=== PATIENT | female | born 1950 | race Native Hawaiian/Other Pacific Islander ===

== ENCOUNTER 2019-02-10 17:54 | Emergency (ER) | payer MEDICAID, SELFPAY ==
[2019-02-10 17:57] VITALS: BP 131/78; PULSE 78; RESP 16; TEMP 36.6; O2SAT 97
[2019-02-10 19:31] VITALS: BP 146/74; PULSE 80; RESP 17; O2SAT 100
[2019-02-10] MEDS: TRIMETH/SULFA 160/800 (DS) TABLET 1 TAB PO (19:57)
[2019-02-10 20:11] VITALS: BP 149/72; PULSE 77; RESP 16; O2SAT 99
--- NOTE | 2019-02-10 20:55 | ED.SKABFB ---
HPI - Skin/Abscess/Foreign Bdy <EUGENE CabanP - Last Filed: 02/10/19 21:20> General Chief complaint: Skin/Abscess/Foreign Body Stated complaint: LUMP BACK ON BACK OF NECK MORE ON RIGHT SIDE Time Seen by Provider: 02/10/19 18:56 Source: patient and family Mode of arrival: ambulatory Limitations: language barrier (Luxembourger) History of Present Illness HPI narrative: This is a 68-year-old female, nonsmoker, has history of diabetes who presents with her granddaughter with posterior neck swelling and pain. They report that lesion started as a very small pimple about a week ago which has been increasing in size and discomfort over 1 week. Patient denies fever, chills, nausea or vomiting or drainage from the site. Patient denies recent URI symptoms, sore throat, sinus pain or drainage. Patient reports some discomfort in left ear which is away from her post anterior neck lesion. Patient reports that her diabetes has been controlled with the 2 medications she is taking orally, Metformin and Invokana but does not check her blood sugar at home. Related Data Previous Rx's Medication Instructions Recorded sulfamethoxazole-trimethoprim 1 tab PO BID 7 Days #14 tab 02/10/19 [Bactrim DS] Allergies Allergy/AdvReac Type Severity Reaction Status Date / Time No Known Drug Allergies Allergy Verified 02/10/19 18:00 Review of Systems <EUGENE CabanP - Last Filed: 02/10/19 21:20> Review of Systems Narrative: General: Denies fever, chills, fatigue, malaise, sweats. HEENT: Denies sinus pain, ear pain, sore throat, difficulty swallowing, dizziness. Respiratory: Denies dyspnea, cough, wheezing, hemoptysis, sputum. Cardiovascular: Denies chest pain, palpitations, orthopnea, edema. Gastrointestinal: Denies nausea, vomiting, abdominal pain, diarrhea, constipation, melena. : Denies dysuria, frequency, incontinence, hematuria, urinary retention. Musculoskeletal: Denies weakness, joint pain or bony pain. Skin: See HPI Neurologic: Denies weakness, headache, numbness, change in speech, confusion, seizures, incoordination. Psychiatric: No concerning psychosocial issues. 12-point review of systems is negative except for those stated above. PFSH <EUGENE CabanP - Last Filed: 02/10/19 21:20> Social History Smoking Status: Never smoker Social History Smoking Status: Never smoker Exam <GLORY Caban - Last Filed: 02/10/19 21:20> Narrative Exam Narrative: General appearance: well developed, well nourished, in no acute distress. Head: normocephalic, atraumatic, no scalp lesions, non-tender. Eye: pupil equal, round. EOMI. Ear: some ear cerumen. TM intact without redness, rectraction. Nose: nares patent and no drainage noted. No facial sinus tenderness to palpate, Oral: mucosa moist. Tonsillar area without hypertrophy, erythema, exudate. Neck/Thyroid: neck supple, full range of motion, no visible masses. Skin: Raised, indurated lesion on R side posterior neck in about 5cm in a diameter. No redness, warmth to touch, tender to deep palpation. No drainaged noted. Warm and dry. Heart: no clubbing, no cyanosis, no edema. S1 and S2 with regular rhythm and rate. Lungs: Breathing even and unlabored. Lungs clear to auscultate bilaterally. No stridor. No accessory muscles used. Chest: normal shape and expansion. Abdomen: non-obese, non-distended. Neurologic: alert and oriented. Cognitive exam, [employer] and PNS grossly intact on informal exam. Psych: good eye contact, normal affect. Initial Vital Signs Initial Vital Signs: Vital Signs Temperature 97.9 F 02/10/19 17:57 Pulse Rate 78 02/10/19 17:57 Respiratory Rate 16 02/10/19 17:57 Blood Pressure 131/78 02/10/19 17:57 Pulse Oximetry 97 02/10/19 17:57 <Roberta Ramirez DO - Last Filed: 02/11/19 05:37> Initial Vital Signs Initial Vital Signs: Vital Signs Temperature 97.9 F 02/10/19 17:57 Pulse Rate 78 02/10/19 17:57 Respiratory Rate 16 02/10/19 17:57 Blood Pressure 131/78 02/10/19 17:57 Pulse Oximetry 97 02/10/19 17:57 Course <GLORY Caban - Last Filed: 02/10/19 21:20> Orders Ordered: Discontinued Medications Trimethoprim/Sulfamethoxazole (Bactrim Ds) 1 tab PO NOW ONE Stop: 02/10/19 19:46 Last Admin: 02/10/19 19:57 Dose: 1 tab Documented by: KARTHIK Vital Signs Vital signs: Vital Signs - 8 hr 02/10/19 17:57 02/10/19 19:31 02/10/19 20:11 Temperature 97.9 F Pulse Rate 78 80 77 Respiratory Rate 16 17 16 Blood Pressure 131/78 149/72 H Blood Pressure [Right Arm] 146/74 H Pulse Oximetry 97 100 99 <Roberta Ramirez DO - Last Filed: 02/11/19 05:37> Orders Ordered: Discontinued Medications Trimethoprim/Sulfamethoxazole (Bactrim Ds) 1 tab PO NOW ONE Stop: 02/10/19 19:46 Last Admin: 02/10/19 19:57 Dose: 1 tab Documented by: KARTHIK Vital Signs Vital signs: Vital Signs - 8 hr 02/10/19 17:57 02/10/19 19:31 02/10/19 20:11 Temperature 97.9 F Pulse Rate 78 80 77 Respiratory Rate 16 17 16 Blood Pressure 131/78 149/72 H Blood Pressure [Right Arm] 146/74 H Pulse Oximetry 97 100 99 [facility] - Skin/Abscess/Foreign Bdy <GLORY Caban - Last Filed: 02/10/19 21:20> Differential Diagnosis Differential diagnosis: Likely abscess of skin or subcutaneous tissue, cellulitis and other (Lymphadenopathy) Medical Records Attestation: I reviewed the patient's medical records. [facility] Narrative Medical decision making narrative: This patient presents to ED with 5 cm in diameter raised, indurated lesion in right-sided posterior neck with patient appears non toxic appearing. Patient denies constitutional symptoms. Since the lesion does not have fluctuation at this time, deferring I and D at this time. We discussed return precautions with patient and daughter and advised to follow up with her primary care physician in 2 days for recheck after starting antibiotic medication. Patient was discharged to home with a 7 day course of b.i.d. Bactrim and medicated with 1st dose medication. Patient advised to use warm pack at least 4 times a day until the swelling improves. The patient and granddaughter agrees with treatment plan at this time. The granddaughter was concerned if her grandmother has a tumor. The boat were informed that the lesions started as a pimple and had grew over a week period and will treat at this time with antibiotic medication whether this will improve. However it is important to follow up with her primary care physician for a recheck. Discharge Plan Departure Patient Disposition: Home Clinical Impression: Cellulitis Qualifiers: Site of cellulitis: neck Qualified Code(s): L03.221 - Cellulitis of neck Discharge Date/Time: 02/10/19 20:12 Instructions: DI for Cellulitis -- Adult, DI for Skin Abscess Activity Restrictions/Additional Instructions: You have been diagnosed with [cellulitis/skin abscess, possible lymph node infection]. What to do: *Take your medications as directed. Please start antibiotic medications tonight. Please use warm pack on affected site for 4 times a day for 30 minutes. *Follow up with your primary care provider in 2-3 days, call for an appointment. Let them know you were seen in the ED and that we asked you to be seen in follow up. *Return to ED if you have any new, worsening, or concerning symptoms, such as [increase in swelling, fever, redness, warmth, chest pain, breathing difficulty, or any acute concerns]. Prescriptions: New sulfamethoxazole-trimethoprim [Bactrim DS] 800-160 mg tablet 1 tab PO BID 7 Days Qty: 14 RF: 0 Referrals: Anne Mary PA-C [Primary Care Provider] -
== END 2019-02-10 20:12 | disposition home or self-care (01) ==
PROVIDERS: Emergency Provider Nurse Practitioner Family; Family Provider Physician Assistant Medical; PCP Physician Assistant Medical
DX: L03.221 Cellulitis of neck (principal)
CPT/HCPCS: 99282; 99283

== ENCOUNTER 2019-11-19 13:14 | Emergency (ER) | payer MEDICAID, SELFPAY ==
[2019-11-19 13:21] VITALS: BP 153/78; PULSE 86; RESP 15; TEMP 36.8; O2SAT 96; BMI 29.0
--- NOTE | 2019-11-19 13:31 | ED.GENADULT ---
HPI - General Adult General Chief complaint: Weakness Stated complaint: dizziness, breathing problem, pain, not eating Time Seen by Provider: 11/19/19 13:20 Source: patient and family (Daughter) Mode of arrival: Ambulatory Limitations: language barrier History of Present Illness HPI narrative: 69-year-old female. Non Tanzanian-speaking but can understand Tanzanian per the patient's daughter who is at bedside who is providing translation. Offered translation services but the patient's daughter stated that she would be happy to translate for us. Is reported that the patient has had fatigue, nausea without vomiting, generalized pain, fatigue for the past week. No urinary symptoms. Subjective fevers, headache, no neck pain, has not tried anything for the symptoms prior to arrival. Related Data Home Medications Medication Instructions Recorded Confirmed blood pressure meds, unknown PO 02/26/19 02/26/19 diabetes, unkown med PO 02/26/19 Previous Rx's Medication Instructions Recorded nitrofurantoin monohyd/m-cryst 100 mg PO Q12H 5 Days #10 cap 11/19/19 [Macrobid] Allergies Allergy/AdvReac Type Severity Reaction Status Date / Time No Known Drug Allergies Allergy Verified 11/19/19 13:41 Review of Systems Constitutional Constitutional: Reports fatigue, Reports fever(s), Reports headache(s) and Reports malaise ENT Ears, Nose, Mouth, and Throat: Reports headache(s) Cardiovascular Cardiovascular: Denies chest pain and Denies dyspnea Respiratory Respiratory: Denies cough and Denies dyspnea Gastrointestinal Gastrointestinal: Denies abdominal pain, Reports nausea and Denies vomiting Genitourinary Genitourinary: Denies dysuria Genitourinary: Denies dysuria Integumentary/Breasts Skin/Breast: Denies lesions and Denies rash Neurologic Neurologic: Denies behavioral changes and Reports headache(s) Psychiatric Psychiatric: Denies behavioral changes Endocrine Endocrine: Reports fatigue Hematologic/Lymphatic Hematologic/Lymphatic: Denies easy bleeding and Denies easy bruising Allergic/Immunologic Allergic/Immunologic: Denies urticaria Patient History Medical History Diabetes (Inactive) Social History Smoking Status: Never smoker Smoking Status: Never smoker Exam Initial Vital Signs Initial Vital Signs: Vital Signs Temperature 98.3 F 11/19/19 13:21 Pulse Rate 86 11/19/19 13:21 Respiratory Rate 15 11/19/19 13:21 Blood Pressure 153/78 H 11/19/19 13:21 Pulse Oximetry 96 11/19/19 13:21 Const General: cooperative and comfortable Limitations: mental status not altered HENMT Head: normal to inspection and normocephalic Resp Effort & Inspection: normal respiratory effort Auscultation: clear to auscultation bilaterally Cardio Rate: regular rate Rhythm: regular rhythm GI Inspection: non-distended Palpation: soft Back/Spine/Pelvis Back: No CVA tenderness Skin Lesions: no lesions Rashes: no rashes Neuro General: patient alert and patient awake Extrem General: capillary refill normal Psych Appearance: grossly normal and well kempt Course Orders Ordered: ED Orders 11/19/19 13:20 Complete Blood Count AUTO DIFF Stat Comprehensive Metabolic Panel Stat Lactate (Lactic Acid) Stat Lipase Stat Procalcitonin Stat Troponin I Stat 11/19/19 13:41 EKG-12 Lead Stat 11/19/19 13:55 Blood Culture Stat 11/19/19 16:07 Urine Culture Stat Urine Microscopic Stat Discontinued Medications Sodium Chloride (Normal Saline 0.9%) 1,000 mls @ 1,000 mls/hr IV BOLUS ONE Stop: 11/19/19 14:48 Last Infusion: 11/19/19 15:10 Dose: 0 mls/hr Documented by: Admin: 11/19/19 14:06 Dose: 1,000 mls/hr Documented by: CHITO Nitrofurantoin Macrocrystals (Macrobid 100 Mg Capsule) 100 mg PO NOW ONE Stop: 11/19/19 16:50 Last Admin: 11/19/19 16:52 Dose: 100 mg Documented by: CHITO Ondansetron HCl (Zofran) 4 mg IV NOW ONE Stop: 11/19/19 13:50 Last Admin: 11/19/19 14:06 Dose: 4 mg Documented by: CHITO Vital Signs Vital signs: Vital Signs - 8 hr 11/19/19 13:21 11/19/19 14:30 11/19/19 17:11 Temperature 98.3 F Pulse Rate 86 74 94 H Respiratory Rate 15 22 Blood Pressure 153/78 H 186/86 H Blood Pressure [Left Arm] 153/78 H Pulse Oximetry 96 99 99 Medical Decision Making Lab Data Lab results reviewed: Yes I reviewed the patient's lab results. Result diagrams: 11/19/19 13:20 11/19/19 13:20 Labs: Lab Results 11/19/19 11/19/19 11/19/19 Range/Units 13:20 13:20 13:20 WBC 7.4 (4.5-11.0) X10^3/uL RBC 4.46 (4.0-5.2) X10^6/uL Hgb 13.3 (12.0-16.0) g/dL Hct 38.7 (36-46) % MCV 86.9 (80-100) fL MCH 29.9 (26-34) PG MCHC 34.4 (30-36) % RDW 12.7 (11.6-14.8) % Plt Count 221 (150-400) X10^3/uL Neut % (Auto) 71.3 (50-75) % Lymph % (Auto) 19.6 L (25-40) % [place] % (Auto) 8.3 (3-14) % Eos % (Auto) 0.1 L (2-4) % Baso % (Auto) 0.7 (0-2) % Neut # (Auto) 5200 (6284-9713) /uL Lymph # (Auto) 1400 (5501-0310) /uL [place] # (Auto) 600 (0-900) /uL Eos # (Auto) 0 (0-450) /uL Baso # (Auto) 100 (0-100) /uL Sodium 135 L (137-145) mmol/L Potassium 4.7 (3.4-5.1) mmol/L Chloride 103 (98-107) mmol/L Carbon Dioxide 21 L (22-32) mmol/L BUN 27 H (7-17) mg/dL Creatinine 1.23 H (0.52-1.04) mg/dL Estimated GFR 43.3 L (>60) mL/min BUN/Creatinine Ratio 22.0 (6-22) Glucose 167 H (80-110) mg/dL Lactate (0.7-2.1) mmol/L Calcium 9.1 (8.4-10.2) mg/dL Total Bilirubin 0.6 (0.2-1.3) mg/dL AST 29 (14-36) IU/L ALT 14 (<35) IU/L Alkaline Phosphatase 104 (38-126) U/L Troponin I < 0.012 (0.01-0.034) ng/mL Total Protein 8.2 (6.3-8.2) g/dL Albumin 4.2 (3.5-5.0) g/dL Globulin 4.0 (1.7-4.1) g/dL Albumin/Globulin Ratio 1.1 (1.0-2.8) Lipase 385 H (23-300) U/L Procalcitonin 0.17 (<0.5) ng/mL Urine RBC (0-5/HPF) Urine WBC (0-5/HPF) Ur Squamous Epith Cells (0-5/HPF) Urine Bacteria (None) Ur Culture Indicated? 11/19/19 11/19/19 Range/Units 13:20 16:07 WBC (4.5-11.0) X10^3/uL RBC (4.0-5.2) X10^6/uL Hgb (12.0-16.0) g/dL Hct (36-46) % MCV (80-100) fL MCH (26-34) PG MCHC (30-36) % RDW (11.6-14.8) % Plt Count (150-400) X10^3/uL Neut % (Auto) (50-75) % Lymph % (Auto) (25-40) % [place] % (Auto) (3-14) % Eos % (Auto) (2-4) % Baso % (Auto) (0-2) % Neut # (Auto) (4805-9925) /uL Lymph # (Auto) (3133-2579) /uL [place] # (Auto) (0-900) /uL Eos # (Auto) (0-450) /uL Baso # (Auto) (0-100) /uL Sodium (137-145) mmol/L Potassium (3.4-5.1) mmol/L Chloride (98-107) mmol/L Carbon Dioxide (22-32) mmol/L BUN (7-17) mg/dL Creatinine (0.52-1.04) mg/dL Estimated GFR (>60) mL/min BUN/Creatinine Ratio (6-22) Glucose (80-110) mg/dL Lactate 1.0 (0.7-2.1) mmol/L Calcium (8.4-10.2) mg/dL Total Bilirubin (0.2-1.3) mg/dL AST (14-36) IU/L ALT (<35) IU/L Alkaline Phosphatase (38-126) U/L Troponin I (0.01-0.034) ng/mL Total Protein (6.3-8.2) g/dL Albumin (3.5-5.0) g/dL Globulin (1.7-4.1) g/dL Albumin/Globulin Ratio (1.0-2.8) Lipase (23-300) U/L Procalcitonin (<0.5) ng/mL Urine RBC 0-1/hpf (0-5/HPF) Urine WBC 5-10/hpf H (0-5/HPF) Ur Squamous Epith Cells 0-1 /hpf (0-5/HPF) Urine Bacteria Moderate (10-30) H (None) Ur Culture Indicated? Specimen cultured Urine Dip Bedside Urine Glucose 1000 mg/dl Bedside Urine Bilirubin - Negative Bedside Urine Ketone +/- 5 Urine Specific [place] 1.015 Bedside Urine Occult Blood +/- Bedside Urine pH 6.0 Bedside Urine Protein +/- 15 Bedside Urine Urobilinogen - Negative Bedside Urine Nitrite + Positive Bedside Urine Leukocytes - Negative Esterase Point of care testing: Urine Dip Bedside Urine Glucose 1000 mg/dl Bedside Urine Bilirubin - Negative Bedside Urine Ketone +/- 5 Urine Specific [place] 1.015 Bedside Urine Occult Blood +/- Bedside Urine pH 6.0 Bedside Urine Protein +/- 15 Bedside Urine Urobilinogen - Negative Bedside Urine Nitrite + Positive Bedside Urine Leukocytes - Negative Esterase ECG Data Attestation: I personally reviewed and interpreted this ECG as follows: Prior ECG tracings: not available for review Interpretation: Sinus rhythm Ventricular rate 82 Normal axis Normal QRS Normal QTC No ST T wave changes MDM Narrative Medical decision making narrative: Somewhat difficult to obtain an accurate HPI from the patient. She has relatively vague symptoms but it does appear that the past couple days she has had fatigue and subjective fevers and nausea. She does have a nitrite positive urine which could very well be causing much of the symptoms she is having today. Low suspicion for ACS. I feel we can hold on a CT scan of her abdomen. Low suspicion for pyelo. Low suspicion for C VA or TIA. Had a long discussion with the patient's daughter. Was given a dose of antibiotics here and will send home with a prescription for antibiotics. Patient was given return precautions and follow-up instructions. Patient's daughter in the patient expressed understanding and agreement. Discharge Plan Departure Patient Disposition: Home Clinical Impression: Acute UTI Discharge Date/Time: 11/19/19 17:12 Instructions: DI for Urinary Tract Infection (UTI) Activity Restrictions/Additional Instructions: You were given your 1st dose of antibiotics here in the emergency department. The 2nd dose will be tomorrow morning. Take them as directed. You were tested for COVID-19. We will contact you for any positive or negative results. This test takes anywhere from 2-5 days to resolved. Contact your primary provider for follow-up. Return to the emergency department for any new or worsening symptoms Prescriptions: New nitrofurantoin monohyd/m-cryst [Macrobid] 100 mg capsule 100 mg PO Q12H 5 Days Qty: 10 RF: 0 No Action diabetes, unkown med PO RF: 0 blood pressure meds, unknown PO RF: 0 Referrals: Anne Mary PA-C [Primary Care Provider] -
[2019-11-19 13:53] LABS: Add Manual Diff / Slide Review NO; Basophils Absolute Auto 100 /uL (0-100); Basophils Percent Auto 0.7 % (0-2); Eosinophils Absolute Auto 0 /uL (0-450); Eosinophils Percent Auto 0.1 % (2-4); Hematocrit 38.7 % (36-46); Hemoglobin 13.3 g/dL (12.0-16.0); Lymphocytes Absolute Auto 1400 /uL (1100-4500); Lymphocytes Percent Auto 19.6 % (25-40); Mean Corpuscular HGB Conc 34.4 % (30-36); Mean Corpuscular Hemoglobin 29.9 PG (26-34); Mean Corpuscular Volume 86.9 fL (80-100); Monocytes Absolute Auto 600 /uL (0-900); Monocytes Percent Auto 8.3 % (3-14); Neutrophils Absolute Auto 5200 /uL (1500-7000); Neutrophils Percent Auto 71.3 % (50-75); Platelet Count 221 X10^3/uL (150-400); Red Blood Cell Count 4.46 X10^6/uL (4.0-5.2); Red Cell Distribution Width 12.7 % (11.6-14.8); White Blood Cell Count 7.4 X10^3/uL (4.5-11.0)
[2019-11-19 14:02] LABS: Alanine Aminotransferase 14 IU/L (<35); Albumin 4.2 g/dL (3.5-5.0); Albumin Globulin Ratio 1.1 (1.0-2.8); Alkaline Phosphatase 104 U/L (38-126); Aspartate Aminotransferase 29 IU/L (14-36); Bilirubin Total 0.6 mg/dL (0.2-1.3); Blood Urea Nitrogen 27 mg/dL (7-17); Calcium 9.1 mg/dL (8.4-10.2); Carbon Dioxide 21 mmol/L (22-32); Chloride 103 mmol/L (98-107); Estimated Glomerular Filt Rate 43.3 mL/min (>60); Glucose 167 mg/dL (80-110); HEMOLYSIS < 15 (0-50); Lipase 385 U/L (23-300); Potassium 4.7 mmol/L (3.4-5.1); Sodium 135 mmol/L (137-145); Total Protein 8.2 g/dL (6.3-8.2)
[2019-11-19] MEDS: ONDANSETRON 4 MG/2 ML INJ IV (14:06)
[2019-11-19] MEDS: SODIUM CHLORIDE 0.9% 1,000 ML 1000 ML IV (14:06)
[2019-11-19 14:13] LABS: Troponin I < 0.012 ng/mL (0.01-0.034)
[2019-11-19 14:27] LABS: Procalcitonin 0.17 ng/mL (<0.5)
[2019-11-19 14:30] VITALS: BP 153/78; PULSE 74; RESP 22; O2SAT 99
--- NOTE | 2019-11-19 16:02 | PC.NURSE ---
pt ambulated to bathroom with slow but steady gait
[2019-11-19 16:41] LABS: Bacteria Urine Moderate (10-30); Culture Indicated Urine Specimen Cultured; RBC Urine 0-1/HPF (0-5/HPF); Squamous Epithelial Cell Urine 0-1 /HPF (0-5/HPF); WBC Urine 5-10/HPF (0-5/HPF)
[2019-11-19] MEDS: NITROFURANTOIN ER 100 MG CAPSULE PO (16:52)
[2019-11-19 17:11] VITALS: BP 186/86; PULSE 94; O2SAT 99
[2019-11-21 10:16] LABS: COVID19 Sendout Detected (Not Detected)
== END 2019-11-19 17:12 | disposition home or self-care (01) ==
PROVIDERS: Emergency Provider Emergency Medicine; Family Provider Physician Assistant Medical; PCP Physician Assistant Medical
DX: N39.0 Urinary tract infection, site not specified (principal); R51 Headache; R50.9 Fever, unspecified
CPT/HCPCS: 36415; 80053; 81003; 81015; 83605; 83690; 84145; 84484; 85025; 87040; 87077; 87086; 87186; 87635; 93005; 96361; 96374; 99284; J2405

== ENCOUNTER 2021-09-13 19:00 | Observation (INO) | payer OTHER, MEDICAID, SELFPAY ==
[2021-09-13] VITALS (16 sets, daily range): BP systolic 126–160; BP diastolic 67–98; PULSE 72–100; RESP 20–28; TEMP 36.4; O2SAT 74–100
--- NOTE | 2021-09-13 19:10 | DI.RAD.S_ITS ---
PROCEDURE: XR CHEST 1V INDICATIONS: chest pain TECHNIQUE: One view of the chest was acquired. COMPARISON: [facility], CR, XR CHEST 1 VIEW, 02/10/2021, 11:12. FINDINGS: Surgical changes and devices: None. Lungs and pleura: Lungs appear clear. No pleural effusions or pneumothorax. Mediastinum: Mediastinal contours appear similar. There is fullness in the right hilar region is more prominent. Heart size is enlarged. Bones and chest wall: No suspicious bony lesions. Overlying soft tissues appear unremarkable. IMPRESSION: The lungs appear clear. Cardiomegaly. Fullness in the right hilar region is more prominent. This can be further evaluated with CT of the chest with IV contrast. Dictated by: Arcenio Calvo M.D. on 09/13/2021 at 20:05 Approved by: Arcenio Calvo M.D. on 09/13/2021 at 20:08
[2021-09-13 19:44] LABS: Add Manual Diff / Slide Review NO; Basophils Absolute Auto 100 /uL (0-100); Basophils Percent Auto 1.2 % (0-2); Eosinophils Absolute Auto 500 /uL (0-450); Eosinophils Percent Auto 5.5 % (2-4); Hemoglobin 11.1 g/dL (12.0-16.0); Lymphocytes Absolute Auto 3400 /uL (1100-4500); Lymphocytes Percent Auto 39.6 % (25-40); Mean Corpuscular HGB Conc 32.6 % (30-36); Mean Corpuscular Hemoglobin 28.1 PG (26-34); Mean Corpuscular Volume 86.1 fL (80-100); Monocytes Absolute Auto 700 /uL (0-900); Monocytes Percent Auto 8.5 % (3-14); Neutrophils Absolute Auto 3900 /uL (1500-7000); Neutrophils Percent Auto 45.2 % (50-75); Platelet Count 337 X10^3/uL (150-400); Red Blood Cell Count 3.95 X10^6/uL (4.0-5.2); Red Cell Distribution Width 14.3 % (11.6-14.8); White Blood Cell Count 8.6 X10^3/uL (4.5-11.0)
[2021-09-13 19:48] LABS: INR 1.1 (0.9-1.3); Prothrombin Time 12.1 SECONDS (10.1-12.7)
[2021-09-13 19:50] LABS: Alanine Aminotransferase 65 IU/L (<35); Albumin 4.5 g/dL (3.5-5.0); Alkaline Phosphatase 95 U/L (38-126); Aspartate Aminotransferase 50 IU/L (14-36); BUN Creatinine Ratio 13.6 (6-22); Bilirubin Total 0.3 mg/dL (0.2-1.3); Blood Urea Nitrogen 24 mg/dL (7-17); Calcium 8.9 mg/dL (8.4-10.2); Carbon Dioxide 22 mmol/L (22-32); Chloride 108 mmol/L (98-107); Creatine Kinase 83 U/L (30-135); Estimated Glomerular Filt Rate 30 mL/min (>60); Globulin 4.4 g/dL (1.7-4.1); Glucose 87 mg/dL (80-110); HEMOLYSIS < 15 (0-50); Lipase 419 U/L (23-300); Magnesium 2.1 mg/dL (1.6-2.3); Sodium 139 mmol/L (137-145); Total Protein 8.9 g/dL (6.3-8.2)
[2021-09-13 19:51] LABS: PTT Partial Thromboplastin Tim 37 SECONDS (26.4-36.2)
[2021-09-13 20:02] LABS: Troponin I < 0.012 ng/mL (0.01-0.034)
--- NOTE | 2021-09-13 20:07 | PC.NURSE ---
Recently started on abx for foot infection. Patient tired last two days, One episode of vomiting yesterday, decrease appetite and sleeping. Patient wound on foot improving per family. Denies chest pain or SOB.
[2021-09-13 21:21] LABS: COVID19 -Nasal RAPID Negative (Negative)
--- NOTE | 2021-09-13 22:18 | ED_ITS ---
HPI - Nausea/Vomiting/Diarrhea General Chief complaint: Nausea/Vomiting/Diarrhea Stated complaint: vomiting/weak x1 day Time Seen by Provider: 09/13/21 19:47 Source: patient Mode of arrival: Ambulatory History of Present Illness HPI Narrative: 71-year-old woman with history of diabetes, chronic renal insufficiency, recent antibiotics for an infection in her left 2nd toe and she is followed by physicians on [facility]. Her daughter notes that over the last couple a days she has been vomiting and a getting her to drink liquids has been a chronic issue. She apparently has not been seen by a shop teacher. Her daughter reports blood sugars low yesterday and this morning which is a very new finding, typically her A1cs run in the 9-12 range and she is on 30 units of Lantus in the mornings. There is no report of fevers, cough, chest pain, palpitations, abdominal pain. No diarrhea. No headaches. Looking through records for the left 2nd toe infection she had been started on Septra b.i.d. on September 05. Related Data Home Medications Medication Instructions Recorded Confirmed clindamycin HCl 300 mg capsule 300 mg PO Q6HR 09/14/21 09/14/21 insulin glargine 100 unit/mL (3 unit SUBCUT 09/14/21 mL) subcutaneous pen (Lantus Solostar U-100 Insulin) losartan 25 mg tablet 25 mg PO DAILY 09/14/21 09/14/21 metformin 1,000 mg tablet 1,000 mg PO DAILY 09/14/21 09/14/21 Allergies Allergy/AdvReac Type Severity Reaction Status Date / Time No Known Drug Allergies Allergy Verified 11/19/19 13:41 Review of Systems Review of Systems Narrative: Remainder of complete review of systems is otherwise unremarkable except for that included in the HPI. Patient History Medical History (Updated 09/14/21 @ 02:05 by Hallie Al MD) Chronic renal insufficiency Diabetes Hypertension Social History Smoking Status: Never smoker Smoking Status: Never smoker alcohol intake frequency: holidays/special occasions only Substance Use Type: does not use Exam Initial Vital Signs Initial Vital Signs: Vital Signs Temperature 97.5 F L 09/13/21 19:08 Pulse Rate 83 09/13/21 19:08 Respiratory Rate 20 09/13/21 19:08 Blood Pressure 153/80 H 09/13/21 19:08 Pulse Oximetry 99 09/13/21 19:08 General: Chronically ill-appearing but in no acute distress. HEENT: Moist mucous membranes, normal sclera with reactive pupils, Neck: No JVD, supple Respiratory: Lungs are clear to auscultation, no wheezing no rales no rhonchi. Full and symmetrical air movement Cardiac: Regular rate and rhythm no murmurs no bruits Abdomen: Soft, nontender, good bowel tones, no flank pain Skin: Warm and dry Neurologic: Grossly neurologically intact with no obvious asymmetries or abnormalities Extremities: Blister to the left 2nd toe that is healing nicely and appears to never have unroofed itself there is no evidence of infection to that toe this time Psych: Cooperative, appropriate insight and affect Course Orders Ordered: ED Orders 09/13/21 19:10 XR chest 1V Stat 09/13/21 19:26 COVID19 -Nasal RAPID/Pre-Proc Stat Complete Blood Count AUTO DIFF Stat Comprehensive Metabolic Panel Stat Lipase Stat Magnesium Stat Partial Thromboplastin Time Stat Prothrombin Time INR Stat Troponin & CK Cardiac Panel Stat 09/13/21 23:46 CMP [Comprehensive Metabolic Panel] Stat Acetaminophen (Acetaminophen 325 Mg Tablet) 650 mg PO Q6HR PRN PRN Reason: pain Dextrose (Dextrose 50 % In Water 25 Gm/50 Ml Syringe) 25 gm IV PRN PRN PRN Reason: Hypoglycemia Heparin Sodium (Porcine) (Heparin 5,000 Unit/Ml Vial) 5,000 unit SUBCUT BID AKASH Sodium Chloride (Normal Saline 0.9%) 1,000 mls @ 150 mls/hr IV CONT AKASH Insulin Glargine (Insulin Glargine 100 Unit/Ml 3ml Pen) 20 unit SUBCUT 2100 AKASH Insulin Human Lispro (Insulin Lispro 100 Unit/Ml 3ml Vial) 0 unit SUBCUT ACHS AKASH; Protocol Ondansetron HCl (Ondansetron 4 Mg/2 Ml Inj) 4 mg IV Q8HR PRN PRN Reason: Nausea And Vomiting Discontinued Medications Sodium Chloride (Normal Saline 0.9%) 1,000 mls @ 1,000 mls/hr IV BOLUS ONE Stop: 09/13/21 23:36 Last Infusion: 09/13/21 23:47 Dose: 0 mls/hr Documented by: Admin: 09/13/21 22:47 Dose: 1,000 mls/hr Documented by: SHYLA Sodium Chloride (Normal Saline 0.9%) 1,000 mls @ 150 mls/hr IV CONT AKASH Last Admin: 09/14/21 01:37 Dose: Not Given Documented by: MARCY Dextrose (D10w) 1,000 mls @ 400 mls/hr IV CONT AKASH Last Infusion: 09/14/21 00:51 Dose: 400 mls/hr Documented by: Admin: 09/14/21 00:38 Dose: 400 mls/hr Documented by: SHYLA Insulin Human Regular (Insulin Regular 100 Unit/Ml 3 Ml Vial) 10 unit IV NOW ONE Stop: 09/14/21 00:26 Last Admin: 09/14/21 00:38 Dose: 10 unit Documented by: SHYLA Cosigned by: GOGO Ondansetron HCl (Ondansetron 4 Mg/2 Ml Inj) 4 mg IV NOW ONE Stop: 09/13/21 22:38 Last Admin: 09/13/21 23:48 Dose: Not Given Documented by: SHYLA Vital Signs Vital signs: Vital Signs - 8 hr 09/13/21 19:08 09/13/21 20:01 09/13/21 20:15 Temperature 97.5 F L Pulse Rate 83 86 85 Respiratory Rate 20 Blood Pressure 153/80 H 144/67 H Pulse Oximetry 99 100 100 09/13/21 20:30 09/13/21 20:45 09/13/21 21:00 Temperature Pulse Rate 97 H 86 92 H Respiratory Rate Blood Pressure 153/83 H 160/81 H Pulse Oximetry 100 99 100 09/13/21 21:15 09/13/21 21:30 09/13/21 21:31 Temperature Pulse Rate 72 99 H 85 Respiratory Rate 20 Blood Pressure 154/98 H Pulse Oximetry 100 100 96 09/13/21 21:45 09/13/21 22:00 09/13/21 22:01 Temperature Pulse Rate 97 H 89 Respiratory Rate Blood Pressure 126/78 Pulse Oximetry 100 100 97 09/13/21 22:15 09/13/21 22:30 09/13/21 22:45 Temperature Pulse Rate 82 81 100 H Respiratory Rate 24 28 H Blood Pressure 135/76 Pulse Oximetry 74 L 99 100 09/13/21 23:00 Temperature Pulse Rate 84 Respiratory Rate 21 Blood Pressure 145/78 H Pulse Oximetry 99 MDM - Nausea/Vomiting/Diarrhea Lab Data Result diagrams: 09/13/21 19:26 09/13/21 23:46 Labs: Lab Results 09/13/21 09/13/21 09/13/21 Range/Units 19:26 19:26 19:26 WBC 8.6 (4.5-11.0) X10^3/uL RBC 3.95 L (4.0-5.2) X10^6/uL Hgb 11.1 L (12.0-16.0) g/dL Hct 34.0 L (36-46) % MCV 86.1 (80-100) fL MCH 28.1 (26-34) PG MCHC 32.6 (30-36) % RDW 14.3 (11.6-14.8) % Plt Count 337 (150-400) X10^3/uL Neut % (Auto) 45.2 L (50-75) % Lymph % (Auto) 39.6 (25-40) % [place] % (Auto) 8.5 (3-14) % Eos % (Auto) 5.5 H (2-4) % Baso % (Auto) 1.2 (0-2) % Neut # (Auto) 3900 (3826-8406) /uL Lymph # (Auto) 3400 (6858-6681) /uL [place] # (Auto) 700 (0-900) /uL Eos # (Auto) 500 H (0-450) /uL Baso # (Auto) 100 (0-100) /uL PT 12.1 (10.1-12.7) SECONDS INR 1.1 (0.9-1.3) APTT 37 H (26.4-36.2) SECONDS Sodium 139 (137-145) mmol/L Potassium 6.0 H (3.4-5.1) mmol/L Chloride 108 H (98-107) mmol/L Carbon Dioxide 22 (22-32) mmol/L BUN 24 H (7-17) mg/dL Creatinine 1.77 H (0.52-1.04) mg/dL Estimated GFR 30 L (>60) mL/min BUN/Creatinine Ratio 13.6 (6-22) Glucose 87 (80-110) mg/dL Calcium 8.9 (8.4-10.2) mg/dL Magnesium 2.1 (1.6-2.3) mg/dL Total Bilirubin 0.3 (0.2-1.3) mg/dL AST 50 H (14-36) IU/L ALT 65 H (<35) IU/L Alkaline Phosphatase 95 (38-126) U/L Total Creatine Kinase 83 (30-135) U/L CK-MB (CK-2) TNP CK-MB (CK-2) Rel Index TNP Troponin I < 0.012 (0.01-0.034) ng/mL Total Protein 8.9 H (6.3-8.2) g/dL Albumin 4.5 (3.5-5.0) g/dL Globulin 4.4 H (1.7-4.1) g/dL Albumin/Globulin Ratio 1.0 (1.0-2.8) Lipase 419 H (23-300) U/L SARS-CoV-2 (PCR) (Negative) 09/13/21 09/13/21 Range/Units 19:26 23:46 WBC (4.5-11.0) X10^3/uL RBC (4.0-5.2) X10^6/uL Hgb (12.0-16.0) g/dL Hct (36-46) % MCV (80-100) fL MCH (26-34) PG MCHC (30-36) % RDW (11.6-14.8) % Plt Count (150-400) X10^3/uL Neut % (Auto) (50-75) % Lymph % (Auto) (25-40) % [place] % (Auto) (3-14) % Eos % (Auto) (2-4) % Baso % (Auto) (0-2) % Neut # (Auto) (4096-0679) /uL Lymph # (Auto) (6324-3367) /uL [place] # (Auto) (0-900) /uL Eos # (Auto) (0-450) /uL Baso # (Auto) (0-100) /uL PT (10.1-12.7) SECONDS INR (0.9-1.3) APTT (26.4-36.2) SECONDS Sodium 136 L (137-145) mmol/L Potassium 6.1 H (3.4-5.1) mmol/L Chloride 111 H (98-107) mmol/L Carbon Dioxide 21 L (22-32) mmol/L BUN 25 H (7-17) mg/dL Creatinine 1.60 H (0.52-1.04) mg/dL Estimated GFR 34 L (>60) mL/min BUN/Creatinine Ratio 15.6 (6-22) Glucose 72 L (80-110) mg/dL Calcium 8.0 L (8.4-10.2) mg/dL Magnesium (1.6-2.3) mg/dL Total Bilirubin 0.5 (0.2-1.3) mg/dL AST 48 H (14-36) IU/L ALT 54 H (<35) IU/L Alkaline Phosphatase 68 (38-126) U/L Total Creatine Kinase (30-135) U/L CK-MB (CK-2) CK-MB (CK-2) Rel Index Troponin I (0.01-0.034) ng/mL Total Protein 7.6 (6.3-8.2) g/dL Albumin 3.7 (3.5-5.0) g/dL Globulin 3.9 (1.7-4.1) g/dL Albumin/Globulin Ratio 0.9 L (1.0-2.8) Lipase (23-300) U/L SARS-CoV-2 (PCR) Negative (Negative) Point of Care Testing Glucose POC 64 Imaging Data Chest x-ray: Radiologist's Impression: FINDINGS:? ? Surgical changes and devices:? None.? ? Lungs and pleura:? Diffuse interstitial prominence.? Mild loss of vascular distinctness.? Small bilateral pleural effusions larger on the left. ? Mediastinum:? Mediastinal contours appear normal.? Heart size is borderline enlarged.? ? Bones and chest wall:? No suspicious bony lesions.? Overlying soft tissues appear unremarkable.? ? IMPRESSION:? Borderline cardiomegaly with findings suggestive of pulmonary edema/CHF.? A concurrent infectious or inflammatory process not excluded if clinically appropriate.? No focal consolidation seen. ? ? Dictated by: Timothy Hager M.D. on 09/13/2021 at 20:57?? ECG Data Interpretation: Sinus rhythm at a rate of 100 Poor baseline No widened QRS, no peaked T-waves No acute ischemic findings MDM Narrative Medical decision making narrative: 71-year-old woman with history of diabetes recent toe infection that appears to be healing nicely with completed 9 day course of Septra. Nausea and vomiting for the last 4 days with decreased appetite with mild renal insufficiency and hyperkalemia. There is no evidence of sepsis or infection otherwise. No indication of congestive heart failure or acute coronary syndrome. She is given a L of fluid and her creatinine dips down however her potassium level is still concerning and has changed from 6.0-6.1. EKG does not suggest any acute changes she is given more fluid and will be given 10 units of IV insulin followed with 400 cc an hour of D10 for a full L of D10. She will be encouraged to both eat and drink with antiemetics as needed. Given the persistent nausea continued hyperkalemia and renal insufficiency will opt to admit her overnight for continued hydration and monitoring of the hyperkalemia. Care is reviewed with Dr. Jama and she is admitted to the hospitalist service Discharge Plan Departure Patient Disposition: Admitted As Inpatient Clinical Impression: Acute hyperkalemia, Acute kidney injury, Nausea & vomiting, Acute dehydration Admit Date/Time: 09/14/21 00:37 Admit Provider: Roger Jama
[2021-09-13] MEDS: SODIUM CHLORIDE 0.9% 1,000 ML 1000 ML IV (22:47)
--- NOTE | 2021-09-13 23:04 | PC.NURSE ---
patient tolerating PO fluids. No nausea at this time.
[2021-09-14] VITALS (10 sets, daily range): BP systolic 123–156; BP diastolic 68–116; PULSE 68–89; RESP 14–20; TEMP 36.3–36.9; O2SAT 97–100; BMI 188.1
--- NOTE | 2021-09-14 00:06 | PC.NURSE ---
Patient up to restroom, tolerated well. Reports she feels a little stronger
[2021-09-14 00:10] LABS: Alanine Aminotransferase 54 IU/L (<35); Albumin 3.7 g/dL (3.5-5.0); Albumin Globulin Ratio 0.9 (1.0-2.8); Alkaline Phosphatase 68 U/L (38-126); Aspartate Aminotransferase 48 IU/L (14-36); BUN Creatinine Ratio 15.6 (6-22); Bilirubin Total 0.5 mg/dL (0.2-1.3); Blood Urea Nitrogen 25 mg/dL (7-17); Carbon Dioxide 21 mmol/L (22-32); Chloride 111 mmol/L (98-107); Estimated Glomerular Filt Rate 34 mL/min (>60); Globulin 3.9 g/dL (1.7-4.1); Glucose 72 mg/dL (80-110); HEMOLYSIS 47 (0-50); Sodium 136 mmol/L (137-145); Total Protein 7.6 g/dL (6.3-8.2)
[2021-09-14 00:11] LABS: Potassium 6.1 mmol/L (3.4-5.1)
[2021-09-14] MEDS: DEXTROSE 10 % IN WATER 1,000 ML 400 ML IV (00:38)
[2021-09-14] MEDS: INSULIN REGULAR 100 UNIT/ML 3 ML VIAL 10 UNIT IV (00:38)
[2021-09-14] MEDS: SODIUM CHLORIDE 0.9% 1,000 ML 150 ML IV (01:02)
--- NOTE | 2021-09-14 01:47 | PC.NURSE ---
Admitted from ED with daughter at bedside. Patient fully A/O, but requires translation from daughter. Glucose 20 on admit via finger stick, asymptomatic. Patient immediately given juice, food, and continued D10 @ 400 mLs/hr. Glucose at 64 via finger stick 15 minutes after first check. Will continue to recheck as D10 infuses.
[2021-09-14 02:32] LABS: BUN Creatinine Ratio 15.5 (6-22); Blood Urea Nitrogen 24 mg/dL (7-17); Calcium 8.1 mg/dL (8.4-10.2); Carbon Dioxide 19 mmol/L (22-32); Chloride 111 mmol/L (98-107); Estimated Glomerular Filt Rate 36 mL/min (>60); Glucose 125 mg/dL (80-110); Sodium 138 mmol/L (137-145)
[2021-09-14 02:33] LABS: HEMOLYSIS 91 (0-50)
[2021-09-14 02:35] LABS: Potassium 5.1 mmol/L (3.4-5.1)
--- NOTE | 2021-09-14 05:22 | P.HP_ITS ---
History of Present Illness History of Present Illness Date Patient Seen: 09/14/21 Time Patient Seen: 05:00 Chief complaint: vomiting/weak x1 day Narrative: Ms. Osorio is a 71W with PMH DM on insulin, HTN, CKD and chronic toe ulcers who presents with nausea and vomiting. She notes that she was started on Septra for a 2nd toe infection on her left foot on September 05. She initially did well but over the last few days she has developed nausea and vomiting. At baseline she does not drink a significant amount of liquid. She has no other sick family members. No diarrhea. No fevers/chills. She has no abdominal pain but has had a headache. She also has had slightly low blood sugars over the past few days, usually her blood sugars run on the high side. Because of this she was brought to the ED. In the ED workup was done, vitals notable for elevated blood pressure. Labs notable for WBC 8.6, hgb 11.1, Na 139, K 6.0, Cr. 1.77. AST/ALT 48/54. She was ordered for IV fluids, dextrose and insulin. Her K improved to 5.1, creatinine 1.55. Chest xray shows fullness in the right hilar region. She was admitted for further treatment. Once on the floor she felt much improved and began tolerating a diet. Family history: multiple family with Diabetes Patient History Medical History Chronic renal insufficiency Diabetes Hypertension Family & Social History Tobacco & Substance use: Smoking Status Never smoker alcohol intake frequency holiday/special occasion Substance Use Type does not use Meds Home Medications and Allergies Home Medications Medication Instructions Recorded Confirmed Type clindamycin HCl 300 mg capsule 300 mg PO Q6HR 09/14/21 09/14/21 History insulin glargine 100 unit/mL (3 unit SUBCUT 09/14/21 History mL) subcutaneous pen (Lantus Solostar U-100 Insulin) losartan 25 mg tablet 25 mg PO DAILY 09/14/21 09/14/21 History metformin 1,000 mg tablet 1,000 mg PO DAILY 09/14/21 09/14/21 History Allergies Allergy/AdvReac Type Severity Reaction Status Date / Time No Known Drug Allergies Allergy Verified 11/19/19 13:41 Review of Systems Review of Systems Narrative: 14 systems reviewed and negative aside from what is noted in HPI Exam Vital Signs (past 8 hours): - 09/13/21 21:30 09/13/21 21:31 09/13/21 21:45 Temperature Pulse Rate 99 H 85 97 H Respiratory Rate Blood Pressure 154/98 H Pulse Oximetry 100 96 100 09/13/21 22:00 09/13/21 22:01 09/13/21 22:15 Temperature Pulse Rate 89 82 Respiratory Rate Blood Pressure 126/78 Pulse Oximetry 100 97 74 L 09/13/21 22:30 09/13/21 22:45 09/13/21 23:00 Temperature Pulse Rate 81 100 H 84 Respiratory Rate 24 28 H 21 Blood Pressure 135/76 145/78 H Pulse Oximetry 99 100 99 09/14/21 00:55 09/14/21 01:02 09/14/21 05:02 Temperature 98.0 F 98.0 F Pulse Rate 89 89 Respiratory Rate 14 19 Blood Pressure 144/116 H 144/116 H Pulse Oximetry 100 99 97 Oxygen Delivery Method Room Air Oxygen Flow Rate 0 Narrative Exam Narrative: GEN: no acute distress HEENT: moist mucous membranes, PERRL NECK: trachea midline, no JVD CV: regular rate and rhythm, no murmurs PULM: clear bilaterally, no wheezes/rhonchi/rales ABD: soft, nontender, nondistended, no organomegaly, normal bowel sounds EXT: warm and well perfused with no edema, dry ulcers noted on toes, no erythema or warmth noted NEURO: awake, alert, no focal deficits Objective Labs Result Diagrams: 09/13/21 19:26 09/14/21 02:15 Labs: Laboratory Results - last 24 hr 09/13/21 09/13/21 09/13/21 19:26 19:26 19:26 WBC 8.6 RBC 3.95 L Hgb 11.1 L Hct 34.0 L MCV 86.1 MCH 28.1 MCHC 32.6 RDW 14.3 Plt Count 337 Neut % (Auto) 45.2 L Lymph % (Auto) 39.6 [place] % (Auto) 8.5 Eos % (Auto) 5.5 H Baso % (Auto) 1.2 Neut # (Auto) 3900 Lymph # (Auto) 3400 [place] # (Auto) 700 Eos # (Auto) 500 H Baso # (Auto) 100 PT 12.1 INR 1.1 APTT 37 H Sodium 139 Potassium 6.0 H Chloride 108 H Carbon Dioxide 22 BUN 24 H Creatinine 1.77 H Estimated GFR 30 L BUN/Creatinine Ratio 13.6 Glucose 87 Calcium 8.9 Magnesium 2.1 Total Bilirubin 0.3 AST 50 H ALT 65 H Alkaline Phosphatase 95 Total Creatine Kinase 83 CK-MB (CK-2) TNP CK-MB (CK-2) Rel Index TNP Troponin I < 0.012 Total Protein 8.9 H Albumin 4.5 Globulin 4.4 H Albumin/Globulin Ratio 1.0 Lipase 419 H SARS-CoV-2 (PCR) 09/13/21 09/13/21 09/14/21 19:26 23:46 02:15 WBC RBC Hgb Hct MCV MCH MCHC RDW Plt Count Neut % (Auto) Lymph % (Auto) [place] % (Auto) Eos % (Auto) Baso % (Auto) Neut # (Auto) Lymph # (Auto) [place] # (Auto) Eos # (Auto) Baso # (Auto) PT INR APTT Sodium 136 L 138 Potassium 6.1 H 5.1 Chloride 111 H 111 H Carbon Dioxide 21 L 19 L BUN 25 H 24 H Creatinine 1.60 H 1.55 H Estimated GFR 34 L 36 L BUN/Creatinine Ratio 15.6 15.5 Glucose 72 L 125 H Calcium 8.0 L 8.1 L Magnesium Total Bilirubin 0.5 AST 48 H ALT 54 H Alkaline Phosphatase 68 Total Creatine Kinase CK-MB (CK-2) CK-MB (CK-2) Rel Index Troponin I Total Protein 7.6 Albumin 3.7 Globulin 3.9 Albumin/Globulin Ratio 0.9 L Lipase SARS-CoV-2 (PCR) Negative Assessment & Plan Assessment & Plan narrative: Ms. Osorio is a 71W with PMH DM, CKD stage 2, HTN who presents with nausea and vomiting found to have LYNSEY and hyperkalemia. 1. Intractable nausea and vomiting, acute -possibly secondary to septra side effect -already improving in hospital -continue zofran -hold septra 2. Hyperkalemia due to LYNSEY on CKD stage 2 -likely secondary to nauea and vomiting and possibly also septra causing elevated creatinine -improved with stopping septra and insulin/glucose -repeat BMP in AM -continue IV fluids for now, but likely dc in AM if tolerating diet 3. Type 2 Diabetes on insulin -ordered for 20U lantus and medium sliding scale -if tolerating diet well increase lantus to home dose of 30U -check glucose achs 4. Hypertension -hold losartan for now given LYNSEY/hyperkalemia 5. Right hilar fullness -consider CT follow up as outpatient 6. Transaminitis, acute -only mildly elevated -likely secondary to acute illness and med side effect -stop septra CODE: Full Proxy: Jennifer Prater, daughter I have utilized all available resources to reconcile the patients home medications. Time Spent With Patient Critical Care time: I spent a total of [] minutes of critical care time on this patient's care today; this time is exclusive of procedural time. Quality MIPS - Admit I confirm the patient?s Advance Care Plan is present, Code status is documented, Surrogate decision maker is in patient?s record [If Yes, STOP here]: Yes
[2021-09-14 07:37] LABS: Add Manual Diff / Slide Review NO; Basophils Absolute Auto 0 /uL (0-100); Basophils Percent Auto 0.5 % (0-2); Eosinophils Absolute Auto 500 /uL (0-450); Eosinophils Percent Auto 5.9 % (2-4); Hematocrit 32.3 % (36-46); Hemoglobin 10.4 g/dL (12.0-16.0); Lymphocytes Absolute Auto 2400 /uL (1100-4500); Lymphocytes Percent Auto 28.4 % (25-40); Mean Corpuscular HGB Conc 32.3 % (30-36); Mean Corpuscular Hemoglobin 28.2 PG (26-34); Mean Corpuscular Volume 87.3 fL (80-100); Monocytes Absolute Auto 600 /uL (0-900); Monocytes Percent Auto 7.4 % (3-14); Neutrophils Absolute Auto 4900 /uL (1500-7000); Neutrophils Percent Auto 57.8 % (50-75); Platelet Count 288 X10^3/uL (150-400); Red Cell Distribution Width 14.3 % (11.6-14.8); White Blood Cell Count 8.5 X10^3/uL (4.5-11.0)
[2021-09-14 07:42] LABS: Blood Urea Nitrogen 23 mg/dL (7-17); Calcium 7.9 mg/dL (8.4-10.2); Carbon Dioxide 16 mmol/L (22-32); Chloride 114 mmol/L (98-107); Estimated Glomerular Filt Rate 39 mL/min (>60); Glucose 126 mg/dL (80-110); HEMOLYSIS 27 (0-50); Potassium 5.5 mmol/L (3.4-5.1); Sodium 138 mmol/L (137-145)
--- NOTE | 2021-09-14 09:33 | CM.DANOTE ---
Addendum entered by Gricelda Smith R.N. 09/14/21 14:36: Nurse, Ame, indicated that patient stated that her daughter is at work, should be home by 1500. Ame may try to call her again. Patient is ready to go home this pm. Addendum entered by Gricelda Smith R.N. 09/14/21 11:41: Was informed that patient may discharge today. Nurse, Ame, had attempted to reach daughter, Jennifer, but did not answer phone, left message. This DC project planner attempted to reach her as well, and left a message. Will need to speak to her so someone is home before discharging home. Will await call back. Original Note: DCP: Case received, EMR reviewed and met with patient. Introduced self and role. Was able to get some information from patient regarding her baseline activity level and current living situation. Was able to complete DCP assessment based upon information currently available. Patient is a 71 year old female who admitted early this morning to the care of the hospitalist team. PCP: Dr. Mary at [facility]. Payer: confirmed: [employer] /Medicaid Patient came to the hospital via private vehicle secondary to vomiting and inability to keep down liquids according to daughter. Her blood sugars had been low as well. Patient had recently been put on Septra by her primary provider for infection to her toes. Patient has history of type 2 diabetes, as well as chronic kidney disease. She was diagnosed with intractable nausea and vomiting possibly secondary to septra side effect, hyperkalemia due to LYNSEY. Met with patient in her room. She was laying in bed. Alert and oriented. Has somewhat of a language barrier, but able to answer some questions. She resides in [place], stated, she lives with her daughter. She does not drive. She didn't indicate that she uses any DME supplies. P: DCP to continue to follow closely for any needs. Patient should be able to go home when she is deemed medically stable. Gricelda Smith RN/Tool Mechanic Discharge Planning/Care Management CM Discharge Assessment Start: 09/14/21 09:31 Freq: Status: Active Protocol: Document 09/14/21 09:31 (Rec: 09/14/21 09:32 [id number]) Discharge Planning Assessment Assigned Patient Assessment Coordinator Gricelda Luis, RN/Tool Mechanic Advance Directives? Yes Advance Directives on File No History Provided By Patient,Family Member,Medical Record Prior Living Arrangements House Household Members family Type of transporation used prior to Relies on Others admit Independent with ADL's Yes Is patient alert and oriented? Yes Needs Assistance With Meal Prep,Home Chores / Shopping Caregiver for Another No Barriers to Discharge No Comment Patient has supportive daughter at home Discharge Plan Home Transportation Arrangement Daughter Referrals Initiated None needed Whiteboard Updated in Patient Room with Yes name and ext. # of Patient Assessment Coordinator Review Status In Process Next Review Type Continued Stay Review
[2021-09-14] MEDS: INSULIN LISPRO 100 UNIT/ML 3ML VIAL SUBCUT (17:32)
--- NOTE | 2021-09-14 18:32 | PM.DS.1 ---
History of Present Illness History of Present Illness Chief complaint: vomiting/weak x1 day Narrative: Ms. Osorio is a 71W with PMH DM on insulin, HTN, CKD and chronic toe ulcers who presents with nausea and vomiting. She notes that she was started on Septra for a 2nd toe infection on her left foot on September 05. She initially did well but over the last few days she has developed nausea and vomiting. At baseline she does not drink a significant amount of liquid. She has no other sick family members. No diarrhea. No fevers/chills. She has no abdominal pain but has had a headache. She also has had slightly low blood sugars over the past few days, usually her blood sugars run on the high side. Because of this she was brought to the ED. In the ED workup was done, vitals notable for elevated blood pressure. Labs notable for WBC 8.6, hgb 11.1, Na 139, K 6.0, Cr. 1.77. AST/ALT 48/54. She was ordered for IV fluids, dextrose and insulin. Her K improved to 5.1, creatinine 1.55. Chest xray shows fullness in the right hilar region. She was admitted for further treatment. Once on the floor she felt much improved and began tolerating a diet. Family history: multiple family with Diabetes HPI written by admitting provider. Discharge Providers Provider Date of admission: 09/14/21 00:37 Discharge Date: 09/14/21 Primary care physician: Anne Mary PA-C Discharge provider: Stuart Rowan MD Summary Hospital Course Discharge Diagnosis: Ms. Osorio is a 71W with PMH DM, CKD stage 2, HTN who presents with nausea and vomiting found to have LYNSEY and hyperkalemia. 1. Nausea and vomiting, resolved, likely due to Bactrim DS outpatient, resolved 2. Hyperkalemia due to LYNSEY on CKD stage 2, likely due to use of Bactrim DS in setting of CKD, improved?- Instructed the patient to discontinue Bactrim DS outpatient ?- Will hold home losartan for the time being, too, given LYNSEY and hyperkalemia ?- Will prescribe amlodipine [address] of losartan, until PCP follow-up 3. Type 2 Diabetes on insulin ?- Will continue metformin outpatient, along with insulin 4. Hypertension ?- Hold for now, as per problem 2 ?- Will prescribe amlodipine 10 mg daily in lieu of losartan 6. Transaminitis, acute ?- Likely occurred due to Bactrim DS, and medication is since discontinued CODE: Full code Proxy: Jennifer Prater, daughter I have utilized all available resources to reconcile the patient's home medications. Exam Vital Signs (past 8 hours): - 09/14/21 12:00 09/14/21 13:00 09/14/21 17:00 Temperature 97.9 F Pulse Rate 86 Respiratory Rate 18 Blood Pressure 154/81 H Pulse Oximetry 100 100 98 09/14/21 18:00 Temperature 98.4 F Pulse Rate 89 Respiratory Rate 20 Blood Pressure 156/71 H Pulse Oximetry 100 Oxygen Delivery Method Room Air Oxygen Flow Rate 0 Objective Labs Result Diagrams: 09/14/21 07:10 09/14/21 07:10 Labs: Laboratory Results - last 24 hr 09/13/21 09/13/21 09/13/21 19:26 19:26 19:26 WBC 8.6 RBC 3.95 L Hgb 11.1 L Hct 34.0 L MCV 86.1 MCH 28.1 MCHC 32.6 RDW 14.3 Plt Count 337 Neut % (Auto) 45.2 L Lymph % (Auto) 39.6 [place] % (Auto) 8.5 Eos % (Auto) 5.5 H Baso % (Auto) 1.2 Neut # (Auto) 3900 Lymph # (Auto) 3400 [place] # (Auto) 700 Eos # (Auto) 500 H Baso # (Auto) 100 PT 12.1 INR 1.1 APTT 37 H Sodium 139 Potassium 6.0 H Chloride 108 H Carbon Dioxide 22 BUN 24 H Creatinine 1.77 H Estimated GFR 30 L BUN/Creatinine Ratio 13.6 Glucose 87 Calcium 8.9 Magnesium 2.1 Total Bilirubin 0.3 AST 50 H ALT 65 H Alkaline Phosphatase 95 Total Creatine Kinase 83 CK-MB (CK-2) TNP CK-MB (CK-2) Rel Index TNP Troponin I < 0.012 Total Protein 8.9 H Albumin 4.5 Globulin 4.4 H Albumin/Globulin Ratio 1.0 Lipase 419 H SARS-CoV-2 (PCR) 09/13/21 09/13/21 09/14/21 19:26 23:46 02:15 WBC RBC Hgb Hct MCV MCH MCHC RDW Plt Count Neut % (Auto) Lymph % (Auto) [place] % (Auto) Eos % (Auto) Baso % (Auto) Neut # (Auto) Lymph # (Auto) [place] # (Auto) Eos # (Auto) Baso # (Auto) PT INR APTT Sodium 136 L 138 Potassium 6.1 H 5.1 Chloride 111 H 111 H Carbon Dioxide 21 L 19 L BUN 25 H 24 H Creatinine 1.60 H 1.55 H Estimated GFR 34 L 36 L BUN/Creatinine Ratio 15.6 15.5 Glucose 72 L 125 H Calcium 8.0 L 8.1 L Magnesium Total Bilirubin 0.5 AST 48 H ALT 54 H Alkaline Phosphatase 68 Total Creatine Kinase CK-MB (CK-2) CK-MB (CK-2) Rel Index Troponin I Total Protein 7.6 Albumin 3.7 Globulin 3.9 Albumin/Globulin Ratio 0.9 L Lipase SARS-CoV-2 (PCR) Negative 09/14/21 09/14/21 07:10 07:10 WBC 8.5 RBC 3.70 L Hgb 10.4 L Hct 32.3 L MCV 87.3 MCH 28.2 MCHC 32.3 RDW 14.3 Plt Count 288 Neut % (Auto) 57.8 Lymph % (Auto) 28.4 [place] % (Auto) 7.4 Eos % (Auto) 5.9 H Baso % (Auto) 0.5 Neut # (Auto) 4900 Lymph # (Auto) 2400 [place] # (Auto) 600 Eos # (Auto) 500 H Baso # (Auto) 0 PT INR APTT Sodium 138 Potassium 5.5 H Chloride 114 H Carbon Dioxide 16 L BUN 23 H Creatinine 1.44 H Estimated GFR 39 L BUN/Creatinine Ratio 16.0 Glucose 126 H Calcium 7.9 L Magnesium Total Bilirubin AST ALT Alkaline Phosphatase Total Creatine Kinase CK-MB (CK-2) CK-MB (CK-2) Rel Index Troponin I Total Protein Albumin Globulin Albumin/Globulin Ratio Lipase SARS-CoV-2 (PCR) [facility] Medical History Chronic renal insufficiency Diabetes Hypertension Social History household members: family Smoking Status: Never smoker Discharge Assessment & Plan Assessment and Plan Assessment: Ms. Osorio is a 71W with PMH DM, CKD stage 2, HTN who presents with nausea and vomiting found to have LYNSEY and hyperkalemia. 1. Nausea and vomiting, resolved, likely due to Bactrim DS outpatient, resolved 2. Hyperkalemia due to LYNSEY on CKD stage 2, likely due to use of Bactrim DS in setting of CKD, improved - Instructed the patient to discontinue Bactrim DS outpatient ?- Will hold home losartan for the time being, too, given LYNSEY and hyperkalemia ?- Will prescribe amlodipine [address] of losartan, until PCP follow-up 3. Type 2 Diabetes on insulin ?- Will continue metformin outpatient, along with insulin 4. Hypertension ?- Hold for now, as per problem 2 ?- Will prescribe amlodipine 10 mg daily in lieu of losartan 6. Transaminitis, acute ?- Likely occurred due to Bactrim DS, and medication is since discontinued CODE: Full code Proxy: Jennifer Prater, daughter I have utilized all available resources to reconcile the patient's home medications. Discharge Plan Discharge Plan Patient Disposition: Home Discharge orders & Medications Prescriptions: New amlodipine 10 mg tablet 10 mg PO DAILY Qty: 90 4RF Continued metformin 1,000 mg tablet 1,000 mg PO DAILY 0RF Label Comments: TAKE 1 TABLET BY MOUTH TWICE DAILY Lantus Solostar U-100 Insulin 100 unit/mL (3 mL) insulin pen 30 unit SUBCUT DAILY 0RF Discontinued clindamycin HCl 300 mg capsule 300 mg PO Q6HR 0RF Label Comments: TAKE 1 CAPSULE BY MOUTH EVERY 6 HOURS losartan 25 mg tablet 25 mg PO DAILY 0RF Label Comments: TAKE 1 TABLET BY MOUTH ONCE DAILY Follow up/Referrals: Anne Mary PA-C [Primary Care Provider] - Discharge Data Primary Care Provider: Anne Mary Attending Provider: Roger Jama VTE Deep Vein Thrombosis/Pulmonary Embolism Present on Admission: No MIPS - Admit I confirm the patient?s Advance Care Plan is present, Code status is documented, Surrogate decision maker is in patient?s record [If Yes, STOP here]: Yes
--- NOTE | 2021-09-14 18:51 | PC.NURSE ---
Pt A&Ox3, VSS, afebrile. She is slightly hypertensive but holding losartan per MD will change patient's home antihypertensive medication upon discharge. Pt denies n/v, and eating 100 % of meals in addition asking for snacks. She is medically cleared today for discharge. Awaiting daughter to answer phone call for discharge notification today. Per the patient her daughter works in [employer] and typically gets off work about 4 pm. X4 attempts to leave a voicemail for patient's daughter.She arrives at 1815 to pt's room to picking tech her mother and transport her home. Both patient and her daughter verbalize understanding of discharge medications, and follow up instructions. Pt is escorted via w/ch to private vehicle with her daughter for discharge home.
== END 2021-09-14 18:54 | disposition home or self-care (01) ==
LOC: ED 19:47 → AC 09-14 00:41
PROVIDERS: Admitting Provider Internal Medicine; Emergency Provider Emergency Medicine; Family Provider Physician Assistant Medical; PCP Physician Assistant Medical; Referring Provider Emergency Medicine; Visit Provider Internal Medicine
DX: E87.5 Hyperkalemia (principal); E86.0 Dehydration; R74.01 Elevation of levels of liver transaminase levels; N17.8 Other acute kidney failure; E11.22 Type 2 diabetes mellitus with diabetic chronic kidney disease; N18.2 Chronic kidney disease, stage 2 (mild); E11.621 Type 2 diabetes mellitus with foot ulcer; L97.529 Non-pressure chronic ulcer of other part of left foot with unspecified severity; I12.9 Hypertensive chronic kidney disease with stage 1 through stage 4 chronic kidney disease, or unspecified chronic kidney disease; Z79.4 Long term (current) use of insulin; Z79.84 Long term (current) use of oral hypoglycemic drugs; Z20.822 Contact with and (suspected) exposure to COVID-19
CPT/HCPCS: 36415; 71045; 80048; 80053; 82550; 82962; 83690; 83735; 84484; 85025; 85610; 85730; 87635; 93005; 93010; 94760; 96361; 96372; 96374; 99284; C9803; G0378; J1815

== ENCOUNTER 2021-11-05 20:55 | Emergency (ER) | payer OTHER, MEDICAID, SELFPAY ==
[2021-09-14 18:13] VITALS: BMI 188.1
[2021-11-05 21:18] VITALS: BP 155/77; PULSE 94; RESP 32; TEMP 37.3; O2SAT 98; BMI 28.1
[2021-11-05] MEDS: ACETAMINOPHEN 325 MG TABLET 975 MG PO (21:38)
--- NOTE | 2021-11-05 21:42 | DI.RAD.S_ITS ---
PROCEDURE: XR CHEST 2V INDICATIONS: cold symptoms TECHNIQUE: 2 views of the chest were acquired. COMPARISON: [facility], CR, XR CHEST 1V, 09/13/2021, 19:13. FINDINGS: Surgical changes and devices: None. Lungs and pleura: Lungs are mildly abnormal, with a chronic interstitial prominence. No pleural effusions or pneumothorax. Mediastinum: Mediastinal contours are normal. Heart size is mildly enlarged. Bones and chest wall: No suspicious bony abnormalities. Soft tissues appear unremarkable. IMPRESSION: Mild cardiomegaly, mild chronic interstitial prominence, no definite acute disease-no pneumonia found. Dictated by: Yovani Mcdowell M.D. on 11/05/2021 at 22:01 Approved by: Yovani Mcdowell M.D. on 11/05/2021 at 22:02
[2021-11-05 22:37] LABS: Influenza A - CEPHEID Flu A NEGATIVE (NEGATIVE)
[2021-11-05 22:38] LABS: COVID-19 CEPHEID PCR (VTM/NP) Negative (Negative); Influenza B - CEPHEID Flu B NEGATIVE (NEGATIVE)
== END 2021-11-05 23:32 | disposition left against medical advice (07) ==
PROVIDERS: Emergency Provider Emergency Medicine; Family Provider Physician Assistant Medical; PCP Physician Assistant Medical
DX: R05.9 Cough, unspecified (principal); R07.9 Chest pain, unspecified; Z20.822 Contact with and (suspected) exposure to COVID-19
CPT/HCPCS: 71046; 87635; 99283; C9803

== ENCOUNTER 2021-11-15 15:15 | Emergency (ER) | payer OTHER, MEDICAID, SELFPAY ==
[2021-09-14 18:13] VITALS: BMI 188.1
[2021-11-15 15:28] VITALS: BP 170/88; PULSE 93; RESP 24; TEMP 37; O2SAT 100; BMI 31.9
--- NOTE | 2021-11-15 15:33 | DI.RAD.S_ITS ---
PROCEDURE: XR CHEST 2V INDICATIONS: Shortness of breath TECHNIQUE: 2 views of the chest were acquired. COMPARISON: [facility], CR, XR CHEST 2V, 11/05/2021, 21:35. FINDINGS: Surgical changes and devices: None. Lungs and pleura: Increased central/perihilar and interstitial markings with cephalization of pulmonary vessels. No consolidation. No pleural effusions or pneumothorax. Mediastinum: Mediastinal contours are normal. Heart size is enlarged. Bones and chest wall: No suspicious bony abnormalities. Soft tissues appear unremarkable. IMPRESSION: Cardiomegaly with findings of moderate cardiogenic pulmonary edema. Dictated by: Fabrice Barahona M.D. on 11/15/2021 at 16:07 Approved by: Fabrice Barahona M.D. on 11/15/2021 at 16:08
[2021-11-15 16:05] VITALS: BP 166/90; PULSE 101; RESP 29; O2SAT 100
[2021-11-15 16:08] LABS: COVID19 -Nasal RAPID Negative (Negative)
--- NOTE | 2021-11-15 16:18 | ED_ITS ---
HPI - SOB/Dyspnea <Lonnie Combs PA-C - Last Filed: 11/15/21 17:17> General Chief Complaint: Shortness of Breath/Dyspnea Stated Complaint: difficulty breathing, not eating Time Seen by Provider: 11/15/21 16:11 Source: patient and family Mode of arrival: Ambulatory Limitations: language barrier History of Present Illness HPI Narrative: Patient is a 71-year-old female who presents to the ED with a 2 week history of shortness of breath and orthopnea. She was tested for COVID at home which was negative and daughter is concerned that she is having an issue with a viral infection of some sort. She is only history is diabetes and hypertension. Patient states that she is unable to lay flat has to lay sitting up and is up most of the night complaining of shortness of breath and cough. Cough is nonproductive and dry. Her ankles are swollen and have been for quite some time which daughter reports to be normal. Patient denies any fever chest pain nausea vomiting diarrhea. Related Data Home Medications Medication Instructions Recorded Confirmed insulin glargine 100 unit/mL (3 30 unit SUBCUT DAILY 09/14/21 09/14/21 mL) subcutaneous pen (Lantus Solostar U-100 Insulin) metformin 1,000 mg tablet 1,000 mg PO DAILY 09/14/21 09/14/21 Previous Rx's Medication Instructions Recorded amlodipine 10 mg tablet 10 mg PO DAILY #90 tabs 09/14/21 furosemide 20 mg tablet (Lasix) 20 mg PO BID #10 tabs 11/15/21 Allergies Allergy/AdvReac Type Severity Reaction Status Date / Time No Known Drug Allergies Allergy Verified 11/19/19 13:41 Review of Systems <Lonnie Combs PA-C - Last Filed: 11/15/21 17:17> Review of Systems ROS Unobtainable: All systems reviewed & are unremarkable except as noted in HPI and below Constitutional Constitutional: Denies chills, Denies fatigue, Denies fever(s), Denies frequent falls, Denies lethargy and Denies weakness Eyes Eyes: Denies change in vision, Denies eye discharge, Denies irritation and Denies loss of vision ENT Ears, Nose, Mouth, and Throat: Denies change in voice, Denies dizziness, Denies neck pain, Denies sore throat and Denies throat swelling Cardiovascular Cardiovascular: Reports as per HPI, Denies chest pain, Reports pedal edema, Denies irregular heart rhythm, Denies lightheadedness, Denies palpitations, Reports dyspnea, Reports dyspnea on exertion and Denies orthopnea Respiratory Respiratory: Reports cough, Reports dyspnea, Reports dyspnea on exertion and Denies wheezing Gastrointestinal Gastrointestinal: Denies abdominal pain, Denies change in bowel habits, Denies diarrhea, Denies nausea and Denies vomiting Genitourinary Genitourinary: Denies hematuria, Denies flank pain, Denies urinary incontinence and Denies urinary urgency Musculoskeletal Musculoskeletal: Denies back pain, Denies muscle weakness, Denies neck pain, Denies numbness and Denies tingling Integumentary/Breasts Skin/Breast: Denies pruritus, Denies erythema, Denies rash and Denies wounds Neurologic Neurologic: Denies behavioral changes, Denies confusion, Denies dizziness, Denies frequent falls, Denies loss of vision, Denies numbness, Denies tingling and Denies weakness Psychiatric Psychiatric: Denies anxiety, Denies behavioral changes, Denies confusion, Denies depression, Denies homicidal ideation and Denies suicidal ideation Endocrine Endocrine: Denies fatigue, Denies flushing and Denies palpitations Hematologic/Lymphatic Hematologic/Lymphatic: Denies easy bruising Allergic/Immunologic Allergic/Immunologic: Denies urticaria, Denies throat swelling and Denies wheezing Patient History <Lonnie Combs PA-C - Last Filed: 11/15/21 17:17> Medical History Chronic renal insufficiency Diabetes Hypertension Social History household members: family Smoking Status: Never smoker Smoking Status: Never smoker alcohol intake frequency: holidays/special occasions only Substance Use Type: does not use Exam <Lonnie Combs PA-C - Last Filed: 11/15/21 17:17> Initial Vital Signs Initial Vital Signs: Vital Signs Temperature 98.6 F 11/15/21 15:28 Pulse Rate 93 H 11/15/21 15:28 Respiratory Rate 24 11/15/21 15:28 Blood Pressure 170/88 H 11/15/21 15:28 Pulse Oximetry 100 11/15/21 15:28 Oxygen Delivery Method 11/15/21 15:28 Const General: cooperative, healthy appearing, comfortable and well developed Nutritional Appearance: average body habitus Orientation: Orientation [facility] Head: normal to inspection, normocephalic and atraumatic Ears: hearing grossly normal bilaterally and external ears normal Nose: external nose normal and nares normal Face and sinus: normal facial exam and sinuses nontender Mouth: oral mucosae normal Teeth and gingiva: dentition normal and gingiva normal Throat: posterior oropharynx normal Eyes General: Yes appearance normal, both eyes and all related structures Pupils: PERRL Neck Neck: JVD Resp Effort & Inspection: respiratory distress Auscultation: crackles bilaterally Percussion: percussion normal Cardio Palpation: thrill Rate: regular rate Rhythm: regular rhythm Heart Sounds: murmur continuous blowing GI Inspection: normal to inspection Palpation: soft and no hepatosplenomegaly Percussion: normal to percussion Auscultation: normal bowel sounds Skin General: no rashes or lesions noted <DO Florina Leigh Last Filed: 11/17/21 13:40> Initial Vital Signs Initial Vital Signs: Vital Signs Temperature 98.6 F 11/15/21 15:28 Pulse Rate 93 H 11/15/21 15:28 Respiratory Rate 24 11/15/21 15:28 Blood Pressure 170/88 H 11/15/21 15:28 Pulse Oximetry 100 11/15/21 15:28 Oxygen Delivery Method 11/15/21 15:28 Course <Lonnie Combs PA-C - Last Filed: 11/15/21 17:17> Orders Ordered: Discontinued Medications Furosemide (Furosemide 40 Mg Tablet) 40 mg PO NOW ONE Stop: 11/15/21 17:21 Last Admin: 11/15/21 17:33 Dose: 40 mg Documented By: LUCIANO Vital Signs Vital signs: Vital Signs - 8 hr 11/15/21 15:28 Temperature 98.6 F Pulse Rate 93 H Respiratory Rate 24 Blood Pressure 170/88 H Pulse Oximetry 100 Oxygen Delivery Method Room Air <Diomedes Mendenhall DO - Last Filed: 11/17/21 13:40> Orders Ordered: Discontinued Medications Furosemide (Furosemide 40 Mg Tablet) 40 mg PO NOW ONE Stop: 11/15/21 17:21 Last Admin: 11/15/21 17:33 Dose: 40 mg Documented By: OW Vital Signs Vital signs: Vital Signs - 8 hr 11/15/21 15:28 Temperature 98.6 F Pulse Rate 93 H Respiratory Rate 24 Blood Pressure 170/88 H Pulse Oximetry 100 Oxygen Delivery Method Room Air MDM - SOB/Dyspnea <Lonnie Combs PA-C - Last Filed: 11/15/21 17:17> Differential Diagnosis Differential diagnosis: Likely congestive heart failure Lab Data Result diagrams: 11/15/21 15:37 11/15/21 15:37 Labs: Lab Results 11/15/21 11/15/21 11/15/21 Range/Units 15:25 15:37 15:37 WBC 12.3 H (4.5-11.0) X10^3/uL RBC 3.57 L (4.0-5.2) X10^6/uL Hgb 9.9 L (12.0-16.0) g/dL Hct 29.9 L (36-46) % MCV 84.0 (80-100) fL MCH 27.8 (26-34) PG MCHC 33.2 (30-36) % RDW 14.4 (11.6-14.8) % Plt Count 308 (150-400) X10^3/uL Neut % (Auto) 68.9 (50-75) % Lymph % (Auto) 18.9 L (25-40) % Hampton % (Auto) 8.3 (3-14) % Eos % (Auto) 2.8 (2-4) % Baso % (Auto) 1.1 (0-2) % Neut # (Auto) 8500 H (5422-7278) /uL Lymph # (Auto) 2300 (5001-3977) /uL [place] # (Auto) 1000 H (0-900) /uL Eos # (Auto) 300 (0-450) /uL Baso # (Auto) 100 (0-100) /uL D-Dimer (<230) ng/mL Sodium 138 (137-145) mmol/L Potassium 3.9 (3.4-5.1) mmol/L Chloride 108 H (98-107) mmol/L Carbon Dioxide 23 (22-32) mmol/L BUN 20 H (7-17) mg/dL Creatinine 1.34 H (0.52-1.04) mg/dL Estimated GFR 42 L (>60) mL/min BUN/Creatinine Ratio 14.9 (6-22) Glucose 148 H (80-110) mg/dL Lactate (0.7-2.1) mmol/L Calcium 8.2 L (8.4-10.2) mg/dL Total Bilirubin 0.7 (0.2-1.3) mg/dL AST 37 H (14-36) IU/L ALT 29 (<35) IU/L Alkaline Phosphatase 111 (38-126) U/L Total Creatine Kinase (30-135) U/L CK-MB (CK-2) CK-MB (CK-2) Rel Index Troponin I (0.01-0.034) ng/mL NT-Pro-B Natriuret Pep (<125) pg/mL Total Protein 7.7 (6.3-8.2) g/dL Albumin 3.6 (3.5-5.0) g/dL Globulin 4.1 (1.7-4.1) g/dL Albumin/Globulin Ratio 0.9 L (1.0-2.8) SARS-CoV-2 (PCR) Negative (Negative) 11/15/21 11/15/21 11/15/21 Range/Units 15:37 15:37 16:20 WBC (4.5-11.0) X10^3/uL RBC (4.0-5.2) X10^6/uL Hgb (12.0-16.0) g/dL Hct (36-46) % MCV (80-100) fL MCH (26-34) PG MCHC (30-36) % RDW (11.6-14.8) % Plt Count (150-400) X10^3/uL Neut % (Auto) (50-75) % Lymph % (Auto) (25-40) % Hampton % (Auto) (3-14) % Eos % (Auto) (2-4) % Baso % (Auto) (0-2) % Neut # (Auto) (6985-6178) /uL Lymph # (Auto) (2250-3256) /uL Hampton # (Auto) (0-900) /uL Eos # (Auto) (0-450) /uL Baso # (Auto) (0-100) /uL D-Dimer (<230) ng/mL Sodium (137-145) mmol/L Potassium (3.4-5.1) mmol/L Chloride (98-107) mmol/L Carbon Dioxide (22-32) mmol/L BUN (7-17) mg/dL Creatinine (0.52-1.04) mg/dL Estimated GFR (>60) mL/min BUN/Creatinine Ratio (6-22) Glucose (80-110) mg/dL Lactate 1.3 (0.7-2.1) mmol/L Calcium (8.4-10.2) mg/dL Total Bilirubin (0.2-1.3) mg/dL AST (14-36) IU/L ALT (<35) IU/L Alkaline Phosphatase (38-126) U/L Total Creatine Kinase 85 (30-135) U/L CK-MB (CK-2) TNP CK-MB (CK-2) Rel Index TNP Troponin I 0.018 (0.01-0.034) ng/mL NT-Pro-B Natriuret Pep 5860 H (<125) pg/mL Total Protein (6.3-8.2) g/dL Albumin (3.5-5.0) g/dL Globulin (1.7-4.1) g/dL Albumin/Globulin Ratio (1.0-2.8) SARS-CoV-2 (PCR) (Negative) 11/15/21 Range/Units 16:32 WBC (4.5-11.0) X10^3/uL RBC (4.0-5.2) X10^6/uL Hgb (12.0-16.0) g/dL Hct (36-46) % MCV (80-100) fL MCH (26-34) PG MCHC (30-36) % RDW (11.6-14.8) % Plt Count (150-400) X10^3/uL Neut % (Auto) (50-75) % Lymph % (Auto) (25-40) % Hampton % (Auto) (3-14) % Eos % (Auto) (2-4) % Baso % (Auto) (0-2) % Neut # (Auto) (8882-6112) /uL Lymph # (Auto) (7198-3228) /uL Hampton # (Auto) (0-900) /uL Eos # (Auto) (0-450) /uL Baso # (Auto) (0-100) /uL D-Dimer 453 H (<230) ng/mL Sodium (137-145) mmol/L Potassium (3.4-5.1) mmol/L Chloride (98-107) mmol/L Carbon Dioxide (22-32) mmol/L BUN (7-17) mg/dL Creatinine (0.52-1.04) mg/dL Estimated GFR (>60) mL/min BUN/Creatinine Ratio (6-22) Glucose (80-110) mg/dL Lactate (0.7-2.1) mmol/L Calcium (8.4-10.2) mg/dL Total Bilirubin (0.2-1.3) mg/dL AST (14-36) IU/L ALT (<35) IU/L Alkaline Phosphatase (38-126) U/L Total Creatine Kinase (30-135) U/L CK-MB (CK-2) CK-MB (CK-2) Rel Index Troponin I (0.01-0.034) ng/mL NT-Pro-B Natriuret Pep (<125) pg/mL Total Protein (6.3-8.2) g/dL Albumin (3.5-5.0) g/dL Globulin (1.7-4.1) g/dL Albumin/Globulin Ratio (1.0-2.8) SARS-CoV-2 (PCR) (Negative) Imaging Data Chest x-ray: Radiologist's Impression: [address] [address] XRay Report Signed Patient: Julia Osorio MR#: [id number] : 1950 Acct:[id number] Age/Sex: 71 / F Date of Service: 11/15/21 Loc: ED Accession Number: [id number] ?? Procedure: XR chest 2V Ordering Provider: Diomedes Mendenhall D.O. PROCEDURE:? XR CHEST 2V ? INDICATIONS:? Shortness of breath ? TECHNIQUE:? 2 views of the chest were acquired.? ? COMPARISON:? [facility], CR, XR CHEST 2V, 11/05/2021, 21:35. ? FINDINGS:? ? Surgical changes and devices:? None.? ? Lungs and pleura:? Increased central/perihilar and interstitial markings with cephalization of pulmonary vessels.? No consolidation.? No pleural effusions or pneumothorax.? ? Mediastinum:? Mediastinal contours are normal.? Heart size is enlarged. ? Bones and chest wall:? No suspicious bony abnormalities.? Soft tissues appear unremarkable.? ? IMPRESSION:? Cardiomegaly with findings of moderate cardiogenic pulmonary edema. ? ? Dictated by: Fabrice Barahona M.D. on 11/15/2021 at 16:07 ? ? Approved by: Fabrice Barahona M.D. on 11/15/2021 at 16:08?? ECG Data Attestation: I personally reviewed and interpreted this ECG as follows: Prior ECG tracings: not available for review Interpretation: EKG shows sinus rhythm no acute ST elevation or any signs of ischemic changes. MDM Narrative Medical decision making narrative: Patient was seen today for shortness of breath ongoing for the last 2 weeks patient has been unable to lay flat as required to be sitting up having difficulty sleeping nonproductive cough workup today shows evidence of acute congestive heart failure with some pulmonary edema visualized on the chest x- ray. Patient's vital signs remained stable and pulse oximetry remained 100% on room air. As result patient will be discharged home I will start her on Lasix 20 mg p.o. b.i.d. and she will need to follow-up with cardiology for further evaluation and treatment. Patient was discharged home. <Diomedes Mendenhall, - Last Filed: 11/17/21 13:40> Lab Data Labs: Lab Results 11/15/21 11/15/21 11/15/21 Range/Units 15:25 15:37 15:37 WBC 12.3 H (4.5-11.0) X10^3/uL RBC 3.57 L (4.0-5.2) X10^6/uL Hgb 9.9 L (12.0-16.0) g/dL Hct 29.9 L (36-46) % MCV 84.0 (80-100) fL MCH 27.8 (26-34) PG MCHC 33.2 (30-36) % RDW 14.4 (11.6-14.8) % Plt Count 308 (150-400) X10^3/uL Neut % (Auto) 68.9 (50-75) % Lymph % (Auto) 18.9 L (25-40) % [place] % (Auto) 8.3 (3-14) % Eos % (Auto) 2.8 (2-4) % Baso % (Auto) 1.1 (0-2) % Neut # (Auto) 8500 H (6020-7350) /uL Lymph # (Auto) 2300 (0719-7985) /uL Hampton # (Auto) 1000 H (0-900) /uL Eos # (Auto) 300 (0-450) /uL Baso # (Auto) 100 (0-100) /uL D-Dimer (<230) ng/mL Sodium 138 (137-145) mmol/L Potassium 3.9 (3.4-5.1) mmol/L Chloride 108 H (98-107) mmol/L Carbon Dioxide 23 (22-32) mmol/L BUN 20 H (7-17) mg/dL Creatinine 1.34 H (0.52-1.04) mg/dL Estimated GFR 42 L (>60) mL/min BUN/Creatinine Ratio 14.9 (6-22) Glucose 148 H (80-110) mg/dL Lactate (0.7-2.1) mmol/L Calcium 8.2 L (8.4-10.2) mg/dL Total Bilirubin 0.7 (0.2-1.3) mg/dL AST 37 H (14-36) IU/L ALT 29 (<35) IU/L Alkaline Phosphatase 111 (38-126) U/L Total Creatine Kinase (30-135) U/L CK-MB (CK-2) CK-MB (CK-2) Rel Index Troponin I (0.01-0.034) ng/mL NT-Pro-B Natriuret Pep (<125) pg/mL Total Protein 7.7 (6.3-8.2) g/dL Albumin 3.6 (3.5-5.0) g/dL Globulin 4.1 (1.7-4.1) g/dL Albumin/Globulin Ratio 0.9 L (1.0-2.8) SARS-CoV-2 (PCR) Negative (Negative) 11/15/21 11/15/21 11/15/21 Range/Units 15:37 15:37 16:20 WBC (4.5-11.0) X10^3/uL RBC (4.0-5.2) X10^6/uL Hgb (12.0-16.0) g/dL Hct (36-46) % MCV (80-100) fL MCH (26-34) PG MCHC (30-36) % RDW (11.6-14.8) % Plt Count (150-400) X10^3/uL Neut % (Auto) (50-75) % Lymph % (Auto) (25-40) % [place] % (Auto) (3-14) % Eos % (Auto) (2-4) % Baso % (Auto) (0-2) % Neut # (Auto) (5187-5893) /uL Lymph # (Auto) (8634-1635) /uL [place] # (Auto) (0-900) /uL Eos # (Auto) (0-450) /uL Baso # (Auto) (0-100) /uL D-Dimer (<230) ng/mL Sodium (137-145) mmol/L Potassium (3.4-5.1) mmol/L Chloride (98-107) mmol/L Carbon Dioxide (22-32) mmol/L BUN (7-17) mg/dL Creatinine (0.52-1.04) mg/dL Estimated GFR (>60) mL/min BUN/Creatinine Ratio (6-22) Glucose (80-110) mg/dL Lactate 1.3 (0.7-2.1) mmol/L Calcium (8.4-10.2) mg/dL Total Bilirubin (0.2-1.3) mg/dL AST (14-36) IU/L ALT (<35) IU/L Alkaline Phosphatase (38-126) U/L Total Creatine Kinase 85 (30-135) U/L CK-MB (CK-2) TNP CK-MB (CK-2) Rel Index TNP Troponin I 0.018 (0.01-0.034) ng/mL NT-Pro-B Natriuret Pep 5860 H (<125) pg/mL Total Protein (6.3-8.2) g/dL Albumin (3.5-5.0) g/dL Globulin (1.7-4.1) g/dL Albumin/Globulin Ratio (1.0-2.8) SARS-CoV-2 (PCR) (Negative) 11/15/21 Range/Units 16:32 WBC (4.5-11.0) X10^3/uL RBC (4.0-5.2) X10^6/uL Hgb (12.0-16.0) g/dL Hct (36-46) % MCV (80-100) fL MCH (26-34) PG MCHC (30-36) % RDW (11.6-14.8) % Plt Count (150-400) X10^3/uL Neut % (Auto) (50-75) % Lymph % (Auto) (25-40) % [place] % (Auto) (3-14) % Eos % (Auto) (2-4) % Baso % (Auto) (0-2) % Neut # (Auto) (4667-8086) /uL Lymph # (Auto) (4296-7863) /uL Hampton # (Auto) (0-900) /uL Eos # (Auto) (0-450) /uL Baso # (Auto) (0-100) /uL D-Dimer 453 H (<230) ng/mL Sodium (137-145) mmol/L Potassium (3.4-5.1) mmol/L Chloride (98-107) mmol/L Carbon Dioxide (22-32) mmol/L BUN (7-17) mg/dL Creatinine (0.52-1.04) mg/dL Estimated GFR (>60) mL/min BUN/Creatinine Ratio (6-22) Glucose (80-110) mg/dL Lactate (0.7-2.1) mmol/L Calcium (8.4-10.2) mg/dL Total Bilirubin (0.2-1.3) mg/dL AST (14-36) IU/L ALT (<35) IU/L Alkaline Phosphatase (38-126) U/L Total Creatine Kinase (30-135) U/L CK-MB (CK-2) CK-MB (CK-2) Rel Index Troponin I (0.01-0.034) ng/mL NT-Pro-B Natriuret Pep (<125) pg/mL Total Protein (6.3-8.2) g/dL Albumin (3.5-5.0) g/dL Globulin (1.7-4.1) g/dL Albumin/Globulin Ratio (1.0-2.8) SARS-CoV-2 (PCR) (Negative) Discharge Plan Departure Patient Disposition: Home Clinical Impression: Congestive heart failure Qualifiers: Heart failure type: unspecified Heart failure chronicity: acute Qualified Code(s): I50.9 - Heart failure, unspecified Instructions: DI for Heart Failure Activity Restrictions/Additional Instructions: You were seen today for your complaint of shortness of breath. 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 He will need to see a senior engineering specialist for follow-up and evaluation. You can also return to the ED if symptoms get worse. Thank you for the opportunity to care for you today. Prescriptions: New furosemide [Lasix] 20 mg tablet 20 mg PO BID Qty: 10 0RF No Action metformin 1,000 mg tablet 1,000 mg PO DAILY Label Comments: TAKE 1 TABLET BY MOUTH TWICE DAILY Lantus Solostar U-100 Insulin 100 unit/mL (3 mL) insulin pen 30 unit SUBCUT DAILY amlodipine 10 mg tablet 10 mg PO DAILY Qty: 90 4RF Referrals: Anne Mary PA-C [Primary Care Provider] - Visit Report Forms: Patient Portal/API <Diomedes Mendenhall DO - Last Filed: 11/17/21 13:40> Cosign ED Attending Julisa Attestation: I was immediately available in the department for consultation. This documentation has been reviewed and I agree with assessment and plan. Supervised by Diomedes Mendenhall DO
[2021-11-15 16:22] LABS: Add Manual Diff / Slide Review NO; Basophils Absolute Auto 100 /uL (0-100); Basophils Percent Auto 1.1 % (0-2); Eosinophils Absolute Auto 300 /uL (0-450); Eosinophils Percent Auto 2.8 % (2-4); Hematocrit 29.9 % (36-46); Hemoglobin 9.9 g/dL (12.0-16.0); Lymphocytes Absolute Auto 2300 /uL (1100-4500); Lymphocytes Percent Auto 18.9 % (25-40); Mean Corpuscular HGB Conc 33.2 % (30-36); Mean Corpuscular Hemoglobin 27.8 PG (26-34); Monocytes Absolute Auto 1000 /uL (0-900); Monocytes Percent Auto 8.3 % (3-14); Neutrophils Absolute Auto 8500 /uL (1500-7000); Neutrophils Percent Auto 68.9 % (50-75); Platelet Count 308 X10^3/uL (150-400); Red Blood Cell Count 3.57 X10^6/uL (4.0-5.2); Red Cell Distribution Width 14.4 % (11.6-14.8); White Blood Cell Count 12.3 X10^3/uL (4.5-11.0)
[2021-11-15 16:30] VITALS: BP 153/92; PULSE 104; RESP 23; O2SAT 100
[2021-11-15 16:35] LABS: Alanine Aminotransferase 29 IU/L (<35); Albumin 3.6 g/dL (3.5-5.0); Albumin Globulin Ratio 0.9 (1.0-2.8); Alkaline Phosphatase 111 U/L (38-126); Aspartate Aminotransferase 37 IU/L (14-36); BUN Creatinine Ratio 14.9 (6-22); Bilirubin Total 0.7 mg/dL (0.2-1.3); Blood Urea Nitrogen 20 mg/dL (7-17); Calcium 8.2 mg/dL (8.4-10.2); Carbon Dioxide 23 mmol/L (22-32); Chloride 108 mmol/L (98-107); Creatine Kinase 85 U/L (30-135); Estimated Glomerular Filt Rate 42 mL/min (>60); Globulin 4.1 g/dL (1.7-4.1); Glucose 148 mg/dL (80-110); HEMOLYSIS 17 (0-50); Potassium 3.9 mmol/L (3.4-5.1); Sodium 138 mmol/L (137-145); Total Protein 7.7 g/dL (6.3-8.2)
[2021-11-15 16:38] LABS: Lactate (Lactic Acid) 1.3 mmol/L (0.7-2.1)
[2021-11-15 16:44] LABS: NT-proBNP (BNP-Adult 18+) 5860 pg/mL (<125)
[2021-11-15 16:46] LABS: Troponin I 0.018 ng/mL (0.01-0.034)
[2021-11-15 17:00] LABS: D Dimer 453 ng/mL (<230)
[2021-11-15 17:01] VITALS: BP 167/80; PULSE 97; RESP 27; O2SAT 100
[2021-11-15] MEDS: FUROSEMIDE 40 MG TABLET PO (17:33)
== END 2021-11-15 17:40 | disposition home or self-care (01) ==
PROVIDERS: Emergency Medicine; Emergency Provider Physician Assistant; Family Provider Physician Assistant Medical; PCP Physician Assistant Medical
DX: I50.9 Heart failure, unspecified (principal); R05.9 Cough, unspecified; Z20.822 Contact with and (suspected) exposure to COVID-19
CPT/HCPCS: 36415; 71046; 80053; 82550; 83605; 83880; 84484; 85025; 85379; 87635; 93005; 93010; 99284; C9803

== ENCOUNTER 2021-11-17 14:57 | Emergency (ER) | payer OTHER, MEDICAID, SELFPAY ==
[2021-09-14 18:13] VITALS: BMI 188.1
[2021-11-17] VITALS (14 sets, daily range): BP systolic 141–156; BP diastolic 75–103; PULSE 88–108; RESP 12–33; TEMP 36.6; O2SAT 96–100
--- NOTE | 2021-11-17 15:11 | DI.RAD.S_ITS ---
PROCEDURE: XR CHEST 1V INDICATIONS: shortness of breath TECHNIQUE: One view of the chest was acquired. COMPARISON: [facility], CR, XR CHEST 2V, 11/15/2021, 15:23. [facility], CR, XR CHEST 1V, 09/13/2021, 19:13. FINDINGS: Surgical changes and devices: None. Lungs and pleura: Lungs are clear. No pleural effusions or pneumothorax. Mediastinum: Mediastinal contours appear normal. Heart size is normal. Bones and chest wall: No suspicious bony lesions. Overlying soft tissues appear unremarkable. IMPRESSION: No acute cardiopulmonary process demonstrated radiographically. Dictated by: Fabrice Barahona M.D. on 11/17/2021 at 15:25 Approved by: Fabrice Barahona M.D. on 11/17/2021 at 15:25
[2021-11-17 15:39] LABS: COVID19 -Nasal RAPID Negative (Negative)
[2021-11-17 17:02] LABS: Add Manual Diff / Slide Review NO; Basophils Absolute Auto 100 /uL (0-100); Basophils Percent Auto 0.7 % (0-2); Eosinophils Absolute Auto 300 /uL (0-450); Eosinophils Percent Auto 2.1 % (2-4); Hematocrit 30.9 % (36-46); Hemoglobin 10.2 g/dL (12.0-16.0); Lymphocytes Absolute Auto 2100 /uL (1100-4500); Mean Corpuscular Hemoglobin 27.3 PG (26-34); Mean Corpuscular Volume 82.7 fL (80-100); Monocytes Absolute Auto 1200 /uL (0-900); Monocytes Percent Auto 9.2 % (3-14); Neutrophils Absolute Auto 9400 /uL (1500-7000); Platelet Count 351 X10^3/uL (150-400); Red Blood Cell Count 3.73 X10^6/uL (4.0-5.2); Red Cell Distribution Width 14.5 % (11.6-14.8); White Blood Cell Count 13.1 X10^3/uL (4.5-11.0)
[2021-11-17 17:07] LABS: D Dimer 574 ng/mL (<230)
[2021-11-17 17:09] LABS: Alanine Aminotransferase 24 IU/L (<35); Albumin 3.9 g/dL (3.5-5.0); Albumin Globulin Ratio 0.9 (1.0-2.8); Alkaline Phosphatase 116 U/L (38-126); Aspartate Aminotransferase 31 IU/L (14-36); BUN Creatinine Ratio 19.4 (6-22); Bilirubin Total 0.9 mg/dL (0.2-1.3); Blood Urea Nitrogen 26 mg/dL (7-17); Carbon Dioxide 30 mmol/L (22-32); Chloride 102 mmol/L (98-107); Creatine Kinase 67 U/L (30-135); Estimated Glomerular Filt Rate 42 mL/min (>60); Globulin 4.3 g/dL (1.7-4.1); Glucose 65 mg/dL (80-110); HEMOLYSIS < 15 (0-50); Potassium 4.3 mmol/L (3.4-5.1); Sodium 138 mmol/L (137-145); Total Protein 8.2 g/dL (6.3-8.2)
[2021-11-17 17:17] LABS: NT-proBNP (BNP-Adult 18+) 7810 pg/mL (<125)
[2021-11-17 17:20] LABS: Troponin I 0.057 ng/mL (0.01-0.034)
--- NOTE | 2021-11-17 17:57 | DI.CT.S_ITS ---
PROCEDURE: CT ANGIO CHEST PE PROTOCOL INDICATIONS: SOB and elevated d-dimer TECHNIQUE: After the administration of intravenous contrast, 2 mm thick sections acquired from the pulmonary apices to the posterior costophrenic angles. 3-dimensional maximum intensity projection (MIP) coronal and sagittal reformats were then acquired through the thorax. For radiation dose reduction, the following was used: automated exposure control, adjustment of mA and/or kV according to patient size. COMPARISON: [facility], CR, XR CHEST 1V, 11/17/2021, 15:10. FINDINGS: Image quality: Excellent. Pulmonary arteries: Pulmonary arteries are normal in size, and demonstrate no intraluminal filling defects to suggest central pulmonary embolism. Lungs and pleura: Mild geographic ground-glass opacities in both lungs may be related to atelectasis or mild edema. No pleural effusions or pneumothorax. Central and peripheral airways are patent. Mediastinum: Heart size is enlarged, without pericardial effusion. Moderate coronary artery calcifications. No mediastinal or hilar adenopathy. Thoracic aorta is normal in caliber and enhancement. Ever in origin of the right subclavian artery is seen arising from the distal aortic arch with retroesophageal coarse, a normal variant. Esophagus is normal in caliber, without hiatal hernia. Bones and chest wall: No suspicious bony lesions. Multilevel degenerative changes are seen in the spine. No acute displaced rib fracture identified. Thyroid is unremarkable. No axillary or supraclavicular adenopathy. Abdomen: Visualized upper abdominal solid organs appear normal in the early arterial phase of enhancement. IMPRESSION: 1. No acute pulmonary embolus. 2. Mild geographic bilateral ground-glass opacities may represent subsegmental atelectasis or mild edema. 3. Moderate cardiomegaly. Coronary artery calcifications are present. Dictated by: Cody Ocampo M.D. on 11/17/2021 at 19:00 Approved by: Cody Ocampo M.D. on 11/17/2021 at 19:06
--- NOTE | 2021-11-17 18:30 | ED.SOB ---
HPI - SOB/Dyspnea <Rich Lowe PA-C - Last Filed: 11/17/21 20:33> General Chief Complaint: Shortness of Breath/Dyspnea Stated Complaint: Not Sleeping or Breathing Well,Leg Pain Time Seen by Provider: 11/17/21 15:02 Source: patient and family Mode of arrival: Wheelchair Limitations: no limitations History of Present Illness HPI Narrative: This is a 71-year-old female with history diabetes and hypertension presenting to the emergency department due to a 2 and half week history worsening shortness of breath with exertion as well as worsening shortness of breath when lying down. Denies any acute chest pain. States she is also having swelling and pain in her lower extremities bilaterally. Denies any fevers, nausea, vomiting, or any other concerning signs or symptoms. Patient was seen here 3 days ago and treated with IV Lasix and prescribed 20 mg Lasix b.i.d. which she has been taking without significant relief. Related Data Home Medications Medication Instructions Recorded Confirmed insulin glargine 100 unit/mL (3 30 unit SUBCUT DAILY 09/14/21 09/14/21 mL) subcutaneous pen (Lantus Solostar U-100 Insulin) metformin 1,000 mg tablet 1,000 mg PO DAILY 09/14/21 09/14/21 Previous Rx's Medication Instructions Recorded amlodipine 10 mg tablet 10 mg PO DAILY #90 tabs 09/14/21 furosemide 20 mg tablet (Lasix) 20 mg PO BID #10 tabs 11/15/21 Allergies Allergy/AdvReac Type Severity Reaction Status Date / Time No Known Drug Allergies Allergy Verified 11/19/19 13:41 Review of Systems <Rich Lowe PA-C - Last Filed: 11/17/21 20:33> Review of Systems Narrative: GENERAL: Denies chills, fatigue, malaise, fever, sweats. HEENT: Denies sinus pain, ear pain, sore throat, difficulty swallowing, dizziness. RESPIRATORY: Reports shortness of breath, denies cough, wheezing, hemoptysis, sputum. CARDIOVASCULAR: Denies chest pain, palpitations, orthopnea, edema, GASTROINTESTINAL: Denies nausea, vomiting, abdominal pain, diarrhea, constipation, melena. : Denies dysuria, frequency, incontinence, hematuria, urinary retention. MUSCULOSKELETAL: Reports bilateral lower extremity edema and pain, denies numbness SKIN: Denies rash, skin lesions, or other NEUROLOGIC: Denies weakness, headache, numbness, change in speech, confusion, seizures, incoordination. PSYCHIATRIC: No concerning psychosocial issues. 12 point review of systems is negative except for those stated above Patient History <Rich Lowe PA-C - Last Filed: 11/17/21 20:33> Medical History Chronic renal insufficiency Diabetes Hypertension Social History household members: family Smoking Status: Never smoker Smoking Status: Never smoker alcohol intake frequency: holidays/special occasions only Substance Use Type: does not use Exam <Rich Lowe PA-C - Last Filed: 11/17/21 20:33> Narrative Exam Narrative: GENERAL: Well-developed patient, in mild distress. HEAD: Atraumatic. Normocephalic. EYES: Pupils equal round and reactive. Extraocular motions intact. No scleral icterus. No injection or drainage. ENT: Nose without bleeding, purulent drainage. Throat without erythema, tonsillar hypertrophy or exudate. Airway patent. NECK: Trachea midline. Non tender CARDIOVASCULAR: Regular rate and rhythm without murmurs, gallops, or rubs. RESPIRATORY: Clear to auscultation. Breath sounds equal bilaterally. No wheezes, rales, or rhonchi. GASTROINTESTINAL: Abdomen soft, non-tender, nondistended. EXTREMITIES: 2+ nonpitting edema to bilateral lower extremities. No significant erythema. Lower extremities appear equal on exam. BACK: Nontender without deformity or crepitance. No flank tenderness. NEURO: AOx3. SKIN: No rash or erythema of visible areas Initial Vital Signs Initial Vital Signs: Vital Signs Temperature 97.9 F 11/17/21 15:04 Pulse Rate 90 11/17/21 15:04 Respiratory Rate 22 11/17/21 15:04 Blood Pressure 156/79 H 11/17/21 15:04 Pulse Oximetry 97 11/17/21 15:04 Oxygen Delivery Method 11/17/21 15:04 <Diomedes Mendenhall DO - Last Filed: 11/25/21 20:42> Initial Vital Signs Initial Vital Signs: Vital Signs Temperature 97.9 F 11/17/21 15:04 Pulse Rate 90 11/17/21 15:04 Respiratory Rate 22 11/17/21 15:04 Blood Pressure 156/79 H 11/17/21 15:04 Pulse Oximetry 97 11/17/21 15:04 Oxygen Delivery Method 11/17/21 15:04 Course <Rich Lowe PA-C - Last Filed: 11/17/21 20:33> Orders Ordered: Discontinued Medications Furosemide (Furosemide 40 Mg/4 Ml Vial) 40 mg IV NOW ONE Stop: 11/17/21 19:36 Last Admin: 11/17/21 19:41 Dose: 40 mg Documented By: AT Vital Signs Vital signs: Vital Signs - 8 hr 11/17/21 15:04 11/17/21 15:42 11/17/21 16:00 Temperature 97.9 F Pulse Rate 90 89 91 H Respiratory Rate 22 31 H 28 H Blood Pressure 156/79 H Pulse Oximetry 97 99 96 Oxygen Delivery Method Room Air 11/17/21 17:15 11/17/21 17:30 11/17/21 18:00 Temperature Pulse Rate 89 88 104 H Respiratory Rate Blood Pressure Pulse Oximetry 100 96 98 Oxygen Delivery Method 11/17/21 18:39 11/17/21 18:40 11/17/21 18:40 Temperature Pulse Rate 108 H 108 H Respiratory Rate Blood Pressure 148/75 H Pulse Oximetry 99 98 Oxygen Delivery Method 11/17/21 19:00 11/17/21 19:00 11/17/21 19:30 Temperature Pulse Rate 105 H Respiratory Rate 24 Blood Pressure 152/92 H 153/78 H Pulse Oximetry 97 Oxygen Delivery Method 11/17/21 19:30 Temperature Pulse Rate 106 H Respiratory Rate 24 Blood Pressure Pulse Oximetry 98 Oxygen Delivery Method <Diomedes Mendenhall DO - Last Filed: 11/25/21 20:42> Orders Ordered: Discontinued Medications Furosemide (Furosemide 40 Mg/4 Ml Vial) 40 mg IV NOW ONE Stop: 11/17/21 19:36 Last Admin: 11/17/21 19:41 Dose: 40 mg Documented By: AT Vital Signs Vital signs: Vital Signs - 8 hr 11/17/21 15:04 11/17/21 15:42 11/17/21 16:00 Temperature 97.9 F Pulse Rate 90 89 91 H Respiratory Rate 22 31 H 28 H Blood Pressure 156/79 H Pulse Oximetry 97 99 96 Oxygen Delivery Method Room Air 11/17/21 17:15 11/17/21 17:30 11/17/21 18:00 Temperature Pulse Rate 89 88 104 H Respiratory Rate Blood Pressure Pulse Oximetry 100 96 98 Oxygen Delivery Method 11/17/21 18:39 11/17/21 18:40 11/17/21 18:40 Temperature Pulse Rate 108 H 108 H Respiratory Rate Blood Pressure 148/75 H Pulse Oximetry 99 98 Oxygen Delivery Method 11/17/21 19:00 11/17/21 19:00 11/17/21 19:30 Temperature Pulse Rate 105 H Respiratory Rate 24 Blood Pressure 152/92 H 153/78 H Pulse Oximetry 97 Oxygen Delivery Method 11/17/21 19:30 Temperature Pulse Rate 106 H Respiratory Rate 24 Blood Pressure Pulse Oximetry 98 Oxygen Delivery Method MDM - SOB/Dyspnea <Rich Lowe PA-C - Last Filed: 11/17/21 20:33> Lab Data Result diagrams: 11/17/21 16:45 11/17/21 16:45 Labs: Lab Results 11/17/21 11/17/21 11/17/21 Range/Units 15:11 16:45 16:45 WBC (4.5-11.0) X10^3/uL RBC (4.0-5.2) X10^6/uL Hgb (12.0-16.0) g/dL Hct (36-46) % MCV (80-100) fL MCH (26-34) PG MCHC (30-36) % RDW (11.6-14.8) % Plt Count (150-400) X10^3/uL Neut % (Auto) (50-75) % Lymph % (Auto) (25-40) % [place] % (Auto) (3-14) % Eos % (Auto) (2-4) % Baso % (Auto) (0-2) % Neut # (Auto) (8377-5004) /uL Lymph # (Auto) (2039-0434) /uL [place] # (Auto) (0-900) /uL Eos # (Auto) (0-450) /uL Baso # (Auto) (0-100) /uL D-Dimer 574 H (<230) ng/mL Sodium (137-145) mmol/L Potassium (3.4-5.1) mmol/L Chloride (98-107) mmol/L Carbon Dioxide (22-32) mmol/L BUN (7-17) mg/dL Creatinine (0.52-1.04) mg/dL Estimated GFR (>60) mL/min BUN/Creatinine Ratio (6-22) Glucose (80-110) mg/dL Calcium (8.4-10.2) mg/dL Total Bilirubin (0.2-1.3) mg/dL AST (14-36) IU/L ALT (<35) IU/L Alkaline Phosphatase (38-126) U/L Total Creatine Kinase (30-135) U/L CK-MB (CK-2) CK-MB (CK-2) Rel Index Troponin I (0.01-0.034) ng/mL NT-Pro-B Natriuret Pep 7810 H (<125) pg/mL Total Protein (6.3-8.2) g/dL Albumin (3.5-5.0) g/dL Globulin (1.7-4.1) g/dL Albumin/Globulin Ratio (1.0-2.8) SARS-CoV-2 (PCR) Negative (Negative) 11/17/21 11/17/21 11/17/21 Range/Units 16:45 16:45 19:00 WBC 13.1 H (4.5-11.0) X10^3/uL RBC 3.73 L (4.0-5.2) X10^6/uL Hgb 10.2 L (12.0-16.0) g/dL Hct 30.9 L (36-46) % MCV 82.7 (80-100) fL MCH 27.3 (26-34) PG MCHC 33.0 (30-36) % RDW 14.5 (11.6-14.8) % Plt Count 351 (150-400) X10^3/uL Neut % (Auto) 72.0 (50-75) % Lymph % (Auto) 16.0 L (25-40) % [place] % (Auto) 9.2 (3-14) % Eos % (Auto) 2.1 (2-4) % Baso % (Auto) 0.7 (0-2) % Neut # (Auto) 9400 H (7719-7120) /uL Lymph # (Auto) 2100 (8405-9660) /uL [place] # (Auto) 1200 H (0-900) /uL Eos # (Auto) 300 (0-450) /uL Baso # (Auto) 100 (0-100) /uL D-Dimer (<230) ng/mL Sodium 138 (137-145) mmol/L Potassium 4.3 (3.4-5.1) mmol/L Chloride 102 (98-107) mmol/L Carbon Dioxide 30 (22-32) mmol/L BUN 26 H (7-17) mg/dL Creatinine 1.34 H (0.52-1.04) mg/dL Estimated GFR 42 L (>60) mL/min BUN/Creatinine Ratio 19.4 (6-22) Glucose 65 L (80-110) mg/dL Calcium 9.0 (8.4-10.2) mg/dL Total Bilirubin 0.9 (0.2-1.3) mg/dL AST 31 (14-36) IU/L ALT 24 (<35) IU/L Alkaline Phosphatase 116 (38-126) U/L Total Creatine Kinase 67 (30-135) U/L CK-MB (CK-2) TNP CK-MB (CK-2) Rel Index TNP Troponin I 0.057 H 0.046 H (0.01-0.034) ng/mL NT-Pro-B Natriuret Pep (<125) pg/mL Total Protein 8.2 (6.3-8.2) g/dL Albumin 3.9 (3.5-5.0) g/dL Globulin 4.3 H (1.7-4.1) g/dL Albumin/Globulin Ratio 0.9 L (1.0-2.8) SARS-CoV-2 (PCR) (Negative) Imaging Data Chest x-ray: Radiologist's Impression: [address] [address] XRay Report Signed Patient: Julia Osorio MR#: [id number] : 1950 Acct:[id number] Age/Sex: 71 / F Date of Service: 11/17/21 Loc: ED Accession Number: [id number] ?? Procedure: XR chest 1V Ordering Provider: Diomedes Mendenhall D.O. PROCEDURE:? XR CHEST 1V ? INDICATIONS:? shortness of breath ? TECHNIQUE:? One view of the chest was acquired.? ? COMPARISON:? [facility], CR, XR CHEST 2V, 11/15/2021, 15:23.? [facility], CR, XR CHEST 1V, 09/13/2021, 19:13. ? FINDINGS:? ? Surgical changes and devices:? None.? ? Lungs and pleura:? Lungs are clear.? No pleural effusions or pneumothorax.? ? Mediastinum:? Mediastinal contours appear normal.? Heart size is normal.? ? Bones and chest wall:? No suspicious bony lesions.? Overlying soft tissues appear unremarkable.? ? IMPRESSION:? No acute cardiopulmonary process demonstrated radiographically. ? ? Dictated by: Fabrice Barahona M.D. on 11/17/2021 at 15:25 ? ? Approved by: Fabrice Barahona M.D. on 11/17/2021 at 15:25 ? CT scan - chest: Radiologist's Impression: [address] [address] [address] Scan Report Signed Patient: Julia Osorio MR#: [id number] : 1950 Acct:[id number] Age/Sex: 71 / F Date of Service: 11/17/21 Loc: ED Accession Number: [id number] ?? Procedure: CT angio chest PE protocol Ordering Provider: Rich Lowe P.A-C PROCEDURE:? CT ANGIO CHEST PE PROTOCOL ? INDICATIONS:? SOB and elevated d-dimer ? TECHNIQUE:? After the administration of intravenous contrast, 2 mm thick sections acquired from the pulmonary apices to the posterior costophrenic angles.? 3-dimensional maximum intensity projection (MIP) coronal and sagittal reformats were then acquired through the thorax.? For radiation dose reduction, the following was used:? automated exposure control, adjustment of mA and/or kV according to patient size.? ? COMPARISON:? [facility], CR, XR CHEST 1V, 11/17/2021, 15:10. ? FINDINGS:? Image quality:? Excellent.? ? Pulmonary arteries:? Pulmonary arteries are normal in size, and demonstrate no intraluminal filling defects to suggest central pulmonary embolism.? ? Lungs and pleura:? Mild geographic ground-glass opacities in both lungs may be related to atelectasis or mild edema.? No pleural effusions or pneumothorax.? Central and peripheral airways are patent.? ? Mediastinum:? Heart size is enlarged, without pericardial effusion.? Moderate coronary artery calcifications.? No mediastinal or hilar adenopathy.? Thoracic aorta is normal in caliber and enhancement.? Ever in origin of the right subclavian artery is seen arising from the distal aortic arch with retroesophageal coarse, a normal variant.? Esophagus is normal in caliber, without hiatal hernia.? ? Bones and chest wall:? No suspicious bony lesions.? Multilevel degenerative changes are seen in the spine.? No acute displaced rib fracture identified.? Thyroid is unremarkable. ?No axillary or supraclavicular adenopathy.? ? Abdomen:? Visualized upper abdominal solid organs appear normal in the early arterial phase of enhancement.? ? IMPRESSION:? 1. No acute pulmonary embolus. 2. Mild geographic bilateral ground-glass opacities may represent subsegmental atelectasis or mild edema. 3. Moderate cardiomegaly.? Coronary artery calcifications are present.? ? ? Dictated by: Cody Ocampo M.D. on 11/17/2021 at 19:00 ? ? Approved by: Cody Ocampo M.D. on 11/17/2021 at 19:06 ? MDM Narrative Medical decision making narrative: 71-year-old female presenting to emergency department with suspected CHF exacerbation although pt has not been formally diagnosed w/ CHF. EKG showed no evidence of acute STEMI. The patient did not describe any chest pain. Suspect mildly elevated troponin is secondary to CHF rather than acute ACS. BMP significant elevated as well. D-dimer elevated as well, CC ordered to rule out PE which was negative. Chest x-ray showed no evidence of acute pulmonary edema. Other lab work showed no remarkable abnormalities. Forty of Lasix given in the emergency department the patient was given discharge with the higher dose of Lasix to take outpatient instructed follow-up with cardiology for formal testing and the possible diagnosis of CHF. Patient has previously been referred to Cardiology and is working to arrange an appointment. <Diomedes Mendenhall, DO - Last Filed: 11/25/21 20:42> Lab Data Labs: Lab Results 11/17/21 11/17/21 11/17/21 Range/Units 15:11 16:45 16:45 WBC (4.5-11.0) X10^3/uL RBC (4.0-5.2) X10^6/uL Hgb (12.0-16.0) g/dL Hct (36-46) % MCV (80-100) fL MCH (26-34) PG MCHC (30-36) % RDW (11.6-14.8) % Plt Count (150-400) X10^3/uL Neut % (Auto) (50-75) % Lymph % (Auto) (25-40) % [place] % (Auto) (3-14) % Eos % (Auto) (2-4) % Baso % (Auto) (0-2) % Neut # (Auto) (2870-7147) /uL Lymph # (Auto) (0293-4839) /uL [place] # (Auto) (0-900) /uL Eos # (Auto) (0-450) /uL Baso # (Auto) (0-100) /uL D-Dimer 574 H (<230) ng/mL Sodium (137-145) mmol/L Potassium (3.4-5.1) mmol/L Chloride (98-107) mmol/L Carbon Dioxide (22-32) mmol/L BUN (7-17) mg/dL Creatinine (0.52-1.04) mg/dL Estimated GFR (>60) mL/min BUN/Creatinine Ratio (6-22) Glucose (80-110) mg/dL Calcium (8.4-10.2) mg/dL Total Bilirubin (0.2-1.3) mg/dL AST (14-36) IU/L ALT (<35) IU/L Alkaline Phosphatase (38-126) U/L Total Creatine Kinase (30-135) U/L CK-MB (CK-2) CK-MB (CK-2) Rel Index Troponin I (0.01-0.034) ng/mL NT-Pro-B Natriuret Pep 7810 H (<125) pg/mL Total Protein (6.3-8.2) g/dL Albumin (3.5-5.0) g/dL Globulin (1.7-4.1) g/dL Albumin/Globulin Ratio (1.0-2.8) SARS-CoV-2 (PCR) Negative (Negative) 06/16/22 06/16/22 06/16/22 Range/Units 16:45 16:45 19:00 WBC 13.1 H (4.5-11.0) X10^3/uL RBC 3.73 L (4.0-5.2) X10^6/uL Hgb 10.2 L (12.0-16.0) g/dL Hct 30.9 L (36-46) % MCV 82.7 (80-100) fL MCH 27.3 (26-34) PG MCHC 33.0 (30-36) % RDW 14.5 (11.6-14.8) % Plt Count 351 (150-400) X10^3/uL Neut % (Auto) 72.0 (50-75) % Lymph % (Auto) 16.0 L (25-40) % [place] % (Auto) 9.2 (3-14) % Eos % (Auto) 2.1 (2-4) % Baso % (Auto) 0.7 (0-2) % Neut # (Auto) 9400 H (8312-4561) /uL Lymph # (Auto) 2100 (3892-0676) /uL [place] # (Auto) 1200 H (0-900) /uL Eos # (Auto) 300 (0-450) /uL Baso # (Auto) 100 (0-100) /uL D-Dimer (<230) ng/mL Sodium 138 (137-145) mmol/L Potassium 4.3 (3.4-5.1) mmol/L Chloride 102 (98-107) mmol/L Carbon Dioxide 30 (22-32) mmol/L BUN 26 H (7-17) mg/dL Creatinine 1.34 H (0.52-1.04) mg/dL Estimated GFR 42 L (>60) mL/min BUN/Creatinine Ratio 19.4 (6-22) Glucose 65 L (80-110) mg/dL Calcium 9.0 (8.4-10.2) mg/dL Total Bilirubin 0.9 (0.2-1.3) mg/dL AST 31 (14-36) IU/L ALT 24 (<35) IU/L Alkaline Phosphatase 116 (38-126) U/L Total Creatine Kinase 67 (30-135) U/L CK-MB (CK-2) TNP CK-MB (CK-2) Rel Index TNP Troponin I 0.057 H 0.046 H (0.01-0.034) ng/mL NT-Pro-B Natriuret Pep (<125) pg/mL Total Protein 8.2 (6.3-8.2) g/dL Albumin 3.9 (3.5-5.0) g/dL Globulin 4.3 H (1.7-4.1) g/dL Albumin/Globulin Ratio 0.9 L (1.0-2.8) SARS-CoV-2 (PCR) (Negative) Discharge Plan Departure Patient Disposition: Home Clinical Impression: CHF (congestive heart failure) Instructions: DI for Heart Failure Activity Restrictions/Additional Instructions: Thank you for coming to the [facility] Emergency Department today. We suspected that this is a continuation of the heart failure diagnosis from your previous visit. We will increase the amount of diuretics which should help to drain fluid in her lungs which is causing the shortness. The fluid is also causing the leg pain which should improve with the use of diuretics. The CT showed no evidence of a blood clot. Please use this new prescription for diuretics to help drain the fluid and please follow-up with cardiology for further evaluation and testing I hope you feel better soon. Prescriptions: No Action metformin 1,000 mg tablet 1,000 mg PO DAILY Label Comments: TAKE 1 TABLET BY MOUTH TWICE DAILY Lantus Solostar U-100 Insulin 100 unit/mL (3 mL) insulin pen 30 unit SUBCUT DAILY amlodipine 10 mg tablet 10 mg PO DAILY Qty: 90 4RF furosemide [Lasix] 20 mg tablet 20 mg PO BID Qty: 10 0RF Referrals: Anne Mary PA-C [Primary Care Provider] - Visit Report Forms: Patient Portal/API <Diomedes Mendenhall DO - Last Filed: 11/25/21 20:42> [facility] Roshanature Attestation: I was immediately available in the department for consultation. This documentation has been reviewed and I agree with assessment and plan. Supervised by Diomedes Mendenhall DO
[2021-11-17] MEDS: FUROSEMIDE 40 MG/4 ML VIAL IV (19:41)
[2021-11-17 20:31] LABS: Troponin I 0.046 ng/mL (0.01-0.034)
== END 2021-11-17 20:48 | disposition home or self-care (01) ==
PROVIDERS: Emergency Medicine; Emergency Provider Physician Assistant Medical; Family Provider Physician Assistant Medical; PCP Physician Assistant Medical
DX: I50.9 Heart failure, unspecified (principal); R74.8 Abnormal levels of other serum enzymes; Z20.822 Contact with and (suspected) exposure to COVID-19
CPT/HCPCS: 36415; 71045; 71275; 80053; 82550; 83880; 84484; 85025; 85379; 87635; 96374; 99284; C9803; J1940

== ENCOUNTER 2022-09-07 18:53 | Inpatient (IN) | payer MEDICAID, OTHER, SELFPAY ==
[2021-09-14 18:13] VITALS: BMI 188.1
[2022-09-07] VITALS (15 sets, daily range): BP systolic 114–131; BP diastolic 63–81; PULSE 90–100; RESP 17–30; TEMP 36.9; O2SAT 97–99; BMI 29.0
--- NOTE | 2022-09-07 19:22 | DI.RAD.S_ITS ---
PROCEDURE: XR CHEST 1V INDICATIONS: chest pain TECHNIQUE: One view of the chest was acquired. COMPARISON: [facility], CR, XR CHEST 1V, 11/17/2021, 15:10. FINDINGS: Surgical changes and devices: None. Lungs and pleura: Diffuse interstitial prominence. Small bilateral pleural effusions. Loss of vascular distinctness. Central vascular congestion. Mediastinum: The cardiomediastinal contours remain stable with enlargement of the cardiac silhouette. Bones and chest wall: No suspicious bony lesions. Overlying soft tissues appear unremarkable. IMPRESSION: Cardiomegaly with findings compatible with pulmonary edema. Dictated by: Timothy Hager M.D. on 09/07/2022 at 20:26 Approved by: Timothy Hager M.D. on 09/07/2022 at 20:27
[2022-09-07 19:48] LABS: Hemoglobin 10.7 g/dL (12.0-16.0); Mean Corpuscular HGB Conc 32.4 % (30-36); Mean Corpuscular Hemoglobin 27.3 PG (26-34); Mean Corpuscular Volume 84.4 fL (80-100); Platelet Count 265 X10^3/uL (150-400); Red Blood Cell Count 3.92 X10^6/uL (4.0-5.2); Red Cell Distribution Width 15.5 % (11.6-14.8); White Blood Cell Count 9.8 X10^3/uL (4.5-11.0)
[2022-09-07 19:50] LABS: Add Manual Diff / Slide Review YES
[2022-09-07 19:55] LABS: INR 1.4 (0.9-1.3); Prothrombin Time 16.4 SECONDS (10.1-12.7)
[2022-09-07 19:58] LABS: PTT Partial Thromboplastin Tim 34 SECONDS (26-36)
[2022-09-07 20:01] LABS: Alanine Aminotransferase 22 IU/L (<35); Albumin 3.8 g/dL (3.5-5.0); Albumin Globulin Ratio 0.9 (1.0-2.8); Alkaline Phosphatase 149 U/L (38-126); Aspartate Aminotransferase 29 IU/L (14-36); BUN Creatinine Ratio 21.1 (6-22); Bilirubin Total 1.8 mg/dL (0.2-1.3); Blood Urea Nitrogen 28 mg/dL (7-17); Calcium 8.5 mg/dL (8.4-10.2); Carbon Dioxide 21 mmol/L (22-32); Chloride 104 mmol/L (98-107); Creatine Kinase 65 U/L (30-135); Estimated Glomerular Filt Rate 43 mL/min (>60); Globulin 4.4 g/dL (1.7-4.1); Glucose 188 mg/dL (80-110); HEMOLYSIS < 15 (0-50); Lipase 155 U/L (23-300); Magnesium 1.7 mg/dL (1.6-2.3); Potassium 4.1 mmol/L (3.4-5.1); Sodium 136 mmol/L (137-145); Total Protein 8.2 g/dL (6.3-8.2)
[2022-09-07 20:06] LABS: Anisocytosis 1+; Neutrophils Absolute Manual 6958 /uL (3000-5900); Ovalocytes 1+; Total Cells Counted 100
[2022-09-07 20:13] LABS: NT-proBNP (BNP-Adult 18+) 12900 pg/mL (<125)
[2022-09-07 20:15] LABS: Troponin I 0.314 ng/mL (0.01-0.034)
--- NOTE | 2022-09-07 20:42 | ED.EXTPRO ---
HPI - Extremity Problem General Chief complaint: Extremity Problem,Nontraumatic Stated complaint: Leg pain Time Seen by Provider: 09/07/22 20:42 Source: patient Mode of arrival: Ambulatory History of Present Illness HPI Narrative: 72 yo [place] woman with history of diabetes, hypertension, prior congestive heart failure and probable at least NSTEMI in the past presents today complaining of increased lower extremity edema for the last 4 days. when pressed, she notes that she has been having some left-sided chest pressure intermittently over the last 2 days. She reports that she is had increasing difficulty sleeping and has been needing to sleep upright. When asked about prior cardiac history she is somewhat ambiguous. It sounds like she may have had some sort of event in [place] and some type of evaluation in [place]. It sounds like she has never had a heart catheterization as she has always declined them secondary to fear. She describes no fevers, cough, chills, abdominal pain. He has been voiding normally. Related Data Home Medications Medication Instructions Recorded Confirmed insulin glargine 100 unit/mL (3 30 unit SUBCUT DAILY 09/14/21 09/14/21 mL) subcutaneous pen (Lantus Solostar U-100 Insulin) metformin 1,000 mg tablet 1,000 mg PO DAILY 09/14/21 09/14/21 Previous Rx's Medication Instructions Recorded amlodipine 10 mg tablet 10 mg PO DAILY #90 tabs 09/14/21 furosemide 20 mg tablet (Lasix) 20 mg PO BID #10 tabs 11/15/21 Allergies Allergy/AdvReac Type Severity Reaction Status Date / Time No Known Drug Allergies Allergy Verified 09/07/22 19:16 Review of Systems Review of Systems Narrative: Pertinent positive and negative findings as per HPI Patient History Medical History (Updated 09/08/22 @ 02:19 by Hallie Al MD) Chronic renal insufficiency Coronary artery disease Diabetes Hypertension Social History household members: family Smoking Status: Never smoker Smoking Status: Never smoker alcohol intake frequency: holidays/special occasions only Substance Use Type: does not use Exam Initial Vital Signs Initial Vital Signs: Vital Signs Temperature 98.4 F 09/07/22 19:09 Pulse Rate 98 H 09/07/22 19:09 Respiratory Rate 20 09/07/22 19:09 Blood Pressure 131/79 09/07/22 19:09 Pulse Oximetry 97 09/07/22 19:09 Oxygen Delivery Method Room Air 09/07/22 19:09 General: older, frail appearing but in no acute distress. Able to to speak in full sentences HEENT: Moist mucous membranes, normal sclera with reactive pupils, Neck: + JVD, supple Respiratory: Lungs with bibasilar crackles. Full and symmetrical air movement Cardiac: Irregular, no murmurs no bruits Abdomen: Soft, nontender, good bowel tones, no flank pain Skin: Warm and dry, chronic venous changes Neurologic: globally weak but Grossly neurologically intact with no obvious asymmetries or abnormalities Extremities: No trauma, 3+ bilateral LE edema. No lesions to the toes Psych: Cooperative, appropriate insight and affect Course Orders Ordered: ED Orders 09/07/22 19:22 XR chest 1V Stat EKG-12 Lead Stat 09/07/22 19:23 Thyroid Stimulating Hormone Urgent 09/07/22 19:34 BNP [NT-proBNP (BNP-Adult 18+)] Stat Complete Blood Count AUTO DIFF Stat Comprehensive Metabolic Panel Stat Lipase Stat Magnesium Stat PTT Partial Thromboplastin Junito Stat Prothrombin Time INR Stat Troponin & CK Cardiac Panel Stat 09/07/22 21:49 Consult to Dietitian, Adult Urgent 09/07/22 21:50 Trop I [Troponin I] Stat 09/07/22 21:53 EC echo doppler complete Urgent NM ludwig perf SPECT rest & str Urgent 09/07/22 21:55 Education, smoking cessation ONGOING 09/07/22 22:01 Urinalysis and Microscopic Urgent 09/07/22 22:03 Consult to Tele-steeple jack Routine 09/08/22 02:00 Troponin I Q6H 09/08/22 03:15 PTT Partial Thromboplastin Junito Q6H 09/08/22 05:00 Complete Blood Count AUTO DIFF DAILY Comprehensive Metabolic Panel DAILY Lipid Panel Routine Magnesium Routine NT-proBNP (BNP-Adult 18+) Routine Prothrombin Time INR Routine 09/08/22 08:00 Troponin I Q6H 09/08/22 09:15 PTT Partial Thromboplastin Junito Q6H 09/08/22 14:00 Troponin I Q6H 09/08/22 15:15 PTT Partial Thromboplastin Junito Q6H 09/08/22 20:00 Troponin I Q6H 09/09/22 05:00 Complete Blood Count AUTO DIFF DAILY Comprehensive Metabolic Panel DAILY 09/10/22 05:00 Complete Blood Count AUTO DIFF DAILY Comprehensive Metabolic Panel DAILY Acetaminophen (Acetaminophen 325 Mg Tablet) 650 mg PO Q6H PRN PRN Reason: Fever/Mild Pain (1-3) Amlodipine Besylate (Amlodipine 5 Mg Tablet) 10 mg PO DAILY [facility] Aspirin (Aspirin Ec 325 Mg Tablet) 325 mg PO DAILY [facility] Atorvastatin Calcium (Atorvastatin 20 Mg Tablet) 40 mg PO BEDTIME [facility] Dextrose (Dextrose 50 % In Water 25 Gm/50 Ml Syringe) 25 gm IV PRN PRN PRN Reason: Hypoglycemia Furosemide (Furosemide 20 Mg/2 Ml Vial) 20 mg IV DAILY [facility] Heparin Sodium/Dextrose (Heparin Drip) 25,000 unit in 500 mls @ 20 mls/hr IV CONT [facility]; Protocol Last Titration: 09/08/22 00:20 Dose: 0 units/hr, 0 mls/hr Documented By: Admin: 09/07/22 21:37 Dose: 1,000 units/hr, 20 mls/hr Documented By: LATONIA Insulin Glargine (Insulin Glargine 100 Unit/Ml 3ml Pen) 30 unit SUBCUT DAILY [facility] Last Admin: 09/07/22 23:05 Dose: 30 unit Documented By: LATONIA Co-signed By: LUCIANO Insulin Human Lispro (Insulin Lispro 100 Unit/Ml 3ml Vial) [address] [facility]; Protocol Metoprolol Tartrate (Metoprolol Ir 25 Mg Tablet) 12.5 mg PO BID [facility] Morphine Sulfate (Morphine 2 Mg/Ml Inj) 2 mg IV Q5MIN PRN PRN Reason: Chest Pain Naloxone HCl (Naloxone 0.4 Mg/Ml Vial) 0.2 mg IV Q2MIN PRN PRN Reason: Opiate Reversal Nitroglycerin (Nitroglycerin 0.4 Mg Sl Tab) 0.4 mg SL [id number] PRN PRN Reason: Chest Pain Ondansetron HCl (Ondansetron 4 Mg/2 Ml Inj) 4 mg IV Q8HR PRN PRN Reason: Nausea And Vomiting Sennosides (Sennosides 8.6 Mg Tablet) 17.2 mg PO BEDTIME [facility] Discontinued Medications Aspirin (Aspirin 81 Mg Chew Tab) 324 mg PO NOW ONE Stop: 09/07/22 19:23 Last Admin: 09/07/22 19:23 Dose: Not Given Documented By: KERMIT Aspirin (Aspirin 81 Mg Chew Tab) 324 mg PO NOW ONE Stop: 09/07/22 21:11 Last Admin: 09/07/22 21:35 Dose: 324 mg Documented By: LATONIA Furosemide (Furosemide 40 Mg/4 Ml Vial) 40 mg IV NOW ONE Stop: 09/07/22 21:41 Last Admin: 09/07/22 21:54 Dose: 40 mg Documented By: LATONIA Heparin Sodium (Porcine) (Heparin 5,000 Unit/Ml Vial) 5,000 unit IV NOW ONE Stop: 09/07/22 21:11 Last Admin: 09/07/22 21:39 Dose: 5,000 unit Documented By: LATONIA Insulin Glargine (Insulin Glargine 100 Unit/Ml 3ml Pen) 20 unit SUBCUT 2100 AKASH Nitroglycerin (Nitroglycerin 0.4 Mg Sl Tab) 0.4 mg SL [id number] PRN PRN Reason: Chest Pain Last Admin: 09/07/22 21:41 Dose: 0.4 mg Documented By: Admin: 09/07/22 21:32 Dose: 0.4 mg Documented By: Admin: 09/07/22 21:20 Dose: 0.4 mg Documented By: LATONIA Nitroglycerin (Nitroglycerin Oint 1 Inch/Gm Oint...G.) 0.5 inch TOP NOW ONE Stop: 09/07/22 21:41 Last Admin: 09/07/22 21:53 Dose: 0.5 inch Documented By: LATONIA Vital Signs Vital signs: Vital Signs - 8 hr 09/07/22 19:09 09/07/22 21:20 09/07/22 21:32 Temperature 98.4 F Pulse Rate 98 H Respiratory Rate 20 Blood Pressure 131/79 125/81 122/63 Pulse Oximetry 97 Oxygen Delivery Method Room Air 09/07/22 21:41 09/07/22 21:12 09/07/22 21:21 Temperature Pulse Rate 96 H 100 H Respiratory Rate 24 30 H Blood Pressure 120/67 Pulse Oximetry 99 99 Oxygen Delivery Method 09/07/22 21:21 09/07/22 21:25 09/07/22 21:25 Temperature Pulse Rate 98 H Respiratory Rate 24 Blood Pressure 125/81 126/64 Pulse Oximetry 97 Oxygen Delivery Method 09/07/22 21:30 09/07/22 21:30 09/07/22 21:35 Temperature Pulse Rate 94 H 94 H Respiratory Rate 23 29 H Blood Pressure 122/63 Pulse Oximetry 97 98 Oxygen Delivery Method 09/07/22 21:35 09/07/22 21:44 09/07/22 21:44 Temperature Pulse Rate 96 H Respiratory Rate 28 H Blood Pressure 127/67 120/67 Pulse Oximetry 98 Oxygen Delivery Method 09/07/22 22:00 Temperature Pulse Rate 91 H Respiratory Rate 26 H Blood Pressure Pulse Oximetry 99 Oxygen Delivery Method MDM - Extremity (Nontraumatic) Lab Data 09/07/22 19:34 09/07/22 19:34 Labs: Lab Results 09/07/22 09/07/22 09/07/22 Range/Units 19:23 19:34 19:34 WBC 9.8 (4.5-11.0) X10^3/uL RBC 3.92 L (4.0-5.2) X10^6/uL Hgb 10.7 L (12.0-16.0) g/dL Hct 33.0 L (36-46) % MCV 84.4 (80-100) fL MCH 27.3 (26-34) PG MCHC 32.4 (30-36) % RDW 15.5 H (11.6-14.8) % Plt Count 265 (150-400) X10^3/uL Neut % (Auto) Not Reportable Lymph % (Auto) Not Reportable [place] % (Auto) Not Reportable Eos % (Auto) Not Reportable Baso % (Auto) Not Reportable Lymph # (Auto) Not Reportable [place] # (Auto) Not Reportable Baso # (Auto) Not Reportable Total Counted 100 Seg Neutrophils % 71.0 H (38-70) % Lymphocytes % (Manual) 20.0 L (25-45) % Monocytes % (Manual) 7.0 (2-11) % Basophils % (Manual) 2.0 H (0-1) % Neutrophils # (Manual) 6958 H (0477-1726) /uL RBC Morphology See below Anisocytosis 1+ H Ovalocytes 1+ H PT 16.4 H (10.1-12.7) SECONDS INR 1.4 H (0.9-1.3) APTT 34 (26-36) SECONDS Sodium (137-145) mmol/L Potassium (3.4-5.1) mmol/L Chloride (98-107) mmol/L Carbon Dioxide (22-32) mmol/L BUN (7-17) mg/dL Creatinine (0.52-1.04) mg/dL Estimated GFR (>60) mL/min BUN/Creatinine Ratio (6-22) Glucose (80-110) mg/dL Calcium (8.4-10.2) mg/dL Magnesium (1.6-2.3) mg/dL Total Bilirubin (0.2-1.3) mg/dL AST (14-36) IU/L ALT (<35) IU/L Alkaline Phosphatase (38-126) U/L Total Creatine Kinase (30-135) U/L CK-MB (CK-2) CK-MB (CK-2) Rel Index Troponin I (0.01-0.034) ng/mL NT-Pro-B Natriuret Pep (<125) pg/mL Total Protein (6.3-8.2) g/dL Albumin (3.5-5.0) g/dL Globulin (1.7-4.1) g/dL Albumin/Globulin Ratio (1.0-2.8) Lipase (23-300) U/L TSH 0.802 (0.47-4.68) uIU/mL 09/07/22 09/07/22 Range/Units 19:34 21:50 WBC (4.5-11.0) X10^3/uL RBC (4.0-5.2) X10^6/uL Hgb (12.0-16.0) g/dL Hct (36-46) % MCV (80-100) fL MCH (26-34) PG MCHC (30-36) % RDW (11.6-14.8) % Plt Count (150-400) X10^3/uL Neut % (Auto) Lymph % (Auto) [place] % (Auto) Eos % (Auto) Baso % (Auto) Lymph # (Auto) [place] # (Auto) Baso # (Auto) Total Counted Seg Neutrophils % (38-70) % Lymphocytes % (Manual) (25-45) % Monocytes % (Manual) (2-11) % Basophils % (Manual) (0-1) % Neutrophils # (Manual) (1660-5489) /uL RBC Morphology Anisocytosis Ovalocytes PT (10.1-12.7) SECONDS INR (0.9-1.3) APTT (26-36) SECONDS Sodium 136 L (137-145) mmol/L Potassium 4.1 (3.4-5.1) mmol/L Chloride 104 (98-107) mmol/L Carbon Dioxide 21 L (22-32) mmol/L BUN 28 H (7-17) mg/dL Creatinine 1.33 H (0.52-1.04) mg/dL Estimated GFR 43 L (>60) mL/min BUN/Creatinine Ratio 21.1 (6-22) Glucose 188 H (80-110) mg/dL Calcium 8.5 (8.4-10.2) mg/dL Magnesium 1.7 (1.6-2.3) mg/dL Total Bilirubin 1.8 H (0.2-1.3) mg/dL AST 29 (14-36) IU/L ALT 22 (<35) IU/L Alkaline Phosphatase 149 H (38-126) U/L Total Creatine Kinase 65 (30-135) U/L CK-MB (CK-2) TNP CK-MB (CK-2) Rel Index TNP Troponin I 0.314 H* 0.275 H* (0.01-0.034) ng/mL NT-Pro-B Natriuret Pep 92267 H (<125) pg/mL Total Protein 8.2 (6.3-8.2) g/dL Albumin 3.8 (3.5-5.0) g/dL Globulin 4.4 H (1.7-4.1) g/dL Albumin/Globulin Ratio 0.9 L (1.0-2.8) Lipase 155 (23-300) U/L TSH (0.47-4.68) uIU/mL MDM Narrative Medical decision making narrative: CC: bilateral lower extremity edema Complicating co-morbidities:Diabetes, congestive heart failure, hypertension Data collected from: patient, Social determinants of health that may influence the patients condition: [place] woman, poor overall insight into her baseline disease, her granddaughter is acting as social welfare clerk ( no other options for Tasneem this evening) and it is not clear that either completely understand questions Medical records reviewed: discharge summary from September of 2021 is reviewed. [facility] records reviewed. She is been seen there for some toe wounds but not for cardiac issues. No prior echocardiogram noted at this hospital or at [facility] Differential considered: atrial fibrillation with rapid ventricular response with subsequent congestive heart failure, NSTEMI with subsequent congestive heart failure, sepsis, viral syndrome, cardiomyopathy Exam documented above, pertinent findings include: mild jugular venous distention, irregular rhythm but no murmurs appreciated and 3+ lower extremity edema without skin breakdown or ulceration to the toes ankles or feet Lab Test results independently reviewed as above. Pertinent findings: CBC is unremarkable with no leukocytosis and stable chronic anemia chemistries are notable for chronic kidney disease with creatinine stable at 1.3. Elevated bilirubin at 1.8 with normal AST ALT and mildly elevated alk-phos at 149.. Electrolytes are unremarkable troponin is elevated at 0.314. With prior admissions small troponin bumps at 0.057 and 0.046 were appreciated. ProBNP is significantly elevated at almost 13,000 Independently reviewed EKG sinus rhythm at a rate of 100 normal intervals, normal axis no acute ischemic changes Imaging studies independently reviewed: cardiomegaly with congestive heart failure Consultations: Cardiology: Dr Medrano. all care is reviewed. Metoprol ER 25 now for V tach. Amiodorone load only if recurrent V tach that is symptomatic. Add statin. Lasix. Heparin. Will need echo and admit. Will send face sheet to [facility] for consideration of transfer, currently 2 other patients also awaiting transfer and no beds avialable Discussed with hospitalist GLORY Dyson Milton, will admit Treatments: asprin, nitro, IV heparin Re-evaluations: 920pm: 24beat run V Tach. Asymptomatic Discussion: 72-year-old woman with NSTEMI, congestive heart failure. Discussed the possibility of heart catheterization and she immediately declined. It sounds like she is declined previous recommendations for heart catheterization. When delving into reasons for this the only reason is I am scared. When I reassured her that this could make her heart function much better and that we would take very good care of her she was willing to reconsider. we also had a discussion regarding code status. She is absolutely and unequivocally full code with intubation. Critical Care Time Critical Care Time Critical Care Time: Yes Total Critical Care Time: 34 Attestation: Critical care time is separate from other billable procedures. There is a high probability of a significant, sudden or life-threatening deterioration that requires my full and direct attention, intervention and personal management. This critical care time includes consultation with family and other consulting doctors, review of records, and interpretation of data from labs, EKGs and imaging as well as managements of acute cardiac issues including life threatening arrythmias Discharge Plan Departure Patient Disposition: Admitted As Inpatient Clinical Impression: NSTEMI (non-ST elevated myocardial infarction), CHF exacerbation, Ventricular tachycardia Admit Date/Time: 09/07/22 22:28 Admit Provider: Angelica Franklin
[2022-09-07] MEDS: NITROGLYCERIN 0.4 MG SL TAB SL ×3 (21:20→21:41)
[2022-09-07] MEDS: ASPIRIN 81 MG CHEW TAB 324 MG PO (21:35)
[2022-09-07] MEDS: HEPARIN DRIP 25,000 UNIT/500 ML IV.SOLN 20 UNIT IV (21:37)
[2022-09-07] MEDS: HEPARIN 5,000 UNIT/ML VIAL 5000 UNIT IV (21:39)
[2022-09-07] MEDS: NITROGLYCERIN OINT 1 INCH/GM OINT...G. 0.5 INCH TOP (21:53)
--- NOTE | 2022-09-07 21:53 | DI.ECHO.S_ITS ---
[facility] +---------+ [facility] +---------+ : : [address] : : : : [id number] : : : : Phone: [phone]+ Echocardiogram Report + + :Name: VIOLA MARLEY Study Date: 09/08/2022 Height: 66 in : :[facility] ReadingLocation: Weight: 180 lb : : Gender: Female BSA: 1.9 m2 : :: 1950 Age: 72 yrs BP: 116/70 mmHg: :Reason For Study: NSTEMI HR: 88 : :Ordering Physician: DESEAN, : :JANNA Performed By: RIP NEVILLE : :Referring: JANNA ANTON : + + Interpretation Summary The mitral annulus is dilated. The ejection fraction is estimated to be 20-25%. There is severe global hypokinesis of the left ventricle. There is severe mitral regurgitation. The aortic valve is slightly calcified. There is mild aortic stenosis. There is trace aortic regurgitation. There is moderate tricuspid regurgitation. The right ventricular systolic pressure is estimated to be at least 60 mmHg based on an estimated right atrial pressure of 15 mm Hg. Procedure: A two-dimensional transthoracic echocardiogram with color flow and Doppler was performed. The study quality was technically adequate. There is no prior echocardiogram noted for this patient. A contrast injection of Definity was performed to improve assessment of LV function. The patient was in normal sinus rhythm during the exam. Left Ventricle: The left ventricle is moderately dilated. There is normal left ventricular wall thickness. There is no thrombus. Left ventricular systolic function is severely reduced. The ejection fraction is estimated to be 20-25%. There is severe global hypokinesis of the left ventricle. Right Ventricle: The right ventricle is mildly dilated. The right ventricular systolic function is normal. Atria: There is severe biatrial enlargement. There is no Doppler evidence for an interatrial shunt. Mitral Valve: The mitral valve leaflets appear mildly thickened, but open well. The mitral annulus is dilated. There is severe mitral regurgitation. Aortic Valve: The aortic valve is trileaflet. There is moderately reduced leaflet mobility. The aortic valve is slightly calcified. The peak aortic velocity is 1.8 m/sec. The aortic valve area indexed to the BSA is 0.56 . Severity ratio is 0.44. There is mild aortic stenosis. There is trace aortic regurgitation. Tricuspid Valve: The tricuspid annulus is dilated. There is moderate tricuspid regurgitation. The right ventricular systolic pressure is estimated to be at least 60 mmHg based on an estimated right atrial pressure of 15 mm Hg. Pulmonic Valve: The pulmonic valve is normal in structure and function. There is mild pulmonic regurgitation. Great Vessels: The aortic root is normal size. The ascending aorta could not be visualized. The IVC is dilated (diameter is greater than 2.1 cm) and it collapses less than 50% with a sniff. This suggests a high right atrial pressure of 15 mm Hg. Pericardium/ Pleura There is no pericardial effusion. There is no pleural effusion. MMode/2D Measurements & Calculations LVIDd: 5.8 cm LVOT diam: 1.8 cm LVIDs: 5.2 cm Ao root diam: 2.8 cm FS: 10.3 % IVSd: 0.88 cm LVPWd: 0.85 cm LV martinez. diameter/BSA (cm/m^2): 3.1 LV sys. diameter/BSA (cm/m^2): 2.7 LA A2 area: 22.1 cm2 RA long axis: 5.1 cm LA A4 area: 22.0 cm2 RA area: 21.0 cm2 LA length (vol): 5.6 cm RA vol: 74.0 ml LA vol: 73.5 ml RA : 38.7 ml/m2 LA vol index: 38.5 ml/m2 RVD1 (basal): 5.3 cm TAPSE: 1.7 cm Doppler Measurements & Calculations Ao V2 max: 183.3 cm/sec LVOT Max Tariq: 86.1 cm/sec Ao V2 mean: 147.3 cm/sec LV V1 max P.0 mmHg Ao max P.4 mmHg LV V1 VTI: 14.5 cm Ao mean P.2 mmHg MICHAEL(I,D): 1.1 cm2 Ao V2 VTI: 33.2 cm MICHAEL(V,D): 1.1 cm2 sev ratio: 0.44 MICHAEL indexed to BSA (cm^2/m^2): 0.56 MV E max tariq: 130.2 cm/sec TR max tariq: 336.9 cm/sec MV A max tariq: 63.8 cm/sec TR max P.4 mmHg MV E/A: 2.0 PA V2 max: 58.8 cm/sec Med Peak E' Tariq: 3.0 cm/sec PA V2 mean: 43.2 cm/sec E/E' med: 42.9 PA mean P.83 mmHg Lat Peak E' Tariq: 4.5 cm/sec PA pr(Accel): 60.2 mmHg E/E' lat: 29.2 E/e' average: 36.1 MV dec time: 0.14 sec SV(LVOT): 35.5 ml Reading Physician:10:58 AM
[2022-09-07] MEDS: FUROSEMIDE 40 MG/4 ML VIAL IV (21:54)
--- NOTE | 2022-09-07 22:06 | P.HP_ITS ---
History of Present Illness History of Present Illness Date Patient Seen: 09/07/22 Time Patient Seen: 22:07 Chief complaint: Leg pain Narrative: Julia Osorio is a 72 F with a hx of with PMH DM on insulin, HTN, CKD, chronic toe ulcers, CHF and possible hx of at least one NSTEMI in the past presented to ED complaining of increased lower extremity edema and pain for the last 4 days. When pressed, she endorses left-sided chest pressure intermittently over the last 2 days.? Had increasing difficulty sleeping, needing to sleep upright.? Per ED Dr. Jaramillo When asked about prior cardiac history she is somewhat ambiguous.? It sounds like she may have had some sort of event in [place] and some type of evaluation in [place].? It sounds like she has never had a heart catheterization as she has always declined them secondary to fear. While in the ED patient had a 20 beat run of V-tach asymptomatic, she is found to have +3 lower extremity edema positive JVD, with no foot skin or toe wounds. Patient's initial troponin 0.314, repeat 0.275. Dr. Miguel consulted Dr. Medrano cardiology at [facility] recommended the patient be placed on a heparin drip and add metoprolol, the patient to have an echo and nuclear stress tomorrow, recommends the patient be transferred to [facility] for heart catheterization. Dr. Miguel did fax over face sheet to [facility] patient is 3rd in the Q for transfer for cardiac catheterization. Admit exam was performed in the ED, patient was sleeping resting quietly without any discomfort she denies current chest pressure complains of continuing bilateral leg pain, and mild shortness of breath. Temp 98.4?, BP 122/63, HR 98, RR 20, O2 saturation 97% on room air. H&H 10.7/33, BUN 28, bicarb 21, creatinine 133, GFR 43, glucose 188-renal labs are baseline for patient's CKD. PT 16.4, INR 1.4, alk-phos 149, BNP 31505. I personally reviewed chest x-ray and EKG chest x-ray demonstrated cardiomegaly with pulmonary edema, EKG normal sinus rhythm rate 100 with possible anterolateral infarct age unknown unchanged from previous EKG. Patient admitted for NSTEMI to the ICU with tele comic book artist. On admit patient denies chest pain, shortness in breath, headache, changes in vision, difficulty swallowing, speech impairment, weakness, numbness, tingling, difficulty with ambulation, recent falls, head injury, LOC, fever, body aches, chills, cough, recent exposure to illness, abdominal pain, nausea, vomiting, urinary incontinence/retention, dysuria, frequency, urgency, hematuria, bowel changes, constipation, incontinence, melena, rashes, recent changes to medication, illness, injury, or trauma. [facility] Medical History Chronic renal insufficiency Coronary artery disease Diabetes Hypertension Family History Father No problems noted. Mother No problems noted. Social History household members: family Smoking Status: Never smoker Meds Home Medications and Allergies Home Medications Medication Instructions Recorded Confirmed Type amlodipine 10 mg tablet 10 mg PO DAILY #90 tabs 09/14/21 Rx insulin glargine 100 unit/mL (3 30 unit SUBCUT DAILY 09/14/21 09/14/21 History mL) subcutaneous pen (Lantus Solostar U-100 Insulin) metformin 1,000 mg tablet 1,000 mg PO DAILY 09/14/21 09/14/21 History furosemide 20 mg tablet (Lasix) 20 mg PO BID #10 tabs 11/15/21 Rx Allergies Allergy/AdvReac Type Severity Reaction Status Date / Time No Known Drug Allergies Allergy Verified 09/07/22 19:16 Review of Systems Review of Systems Narrative: All 12 point systems reviewed with the patient and are negative except otherwise documented. Exam Vital Signs (past 8 hours): - 09/07/22 19:09 09/07/22 21:20 09/07/22 21:32 Temperature 98.4 F Pulse Rate 98 H Respiratory Rate 20 Blood Pressure 131/79 125/81 122/63 Pulse Oximetry 97 Oxygen Delivery Method Room Air 09/07/22 21:41 09/07/22 21:12 09/07/22 21:21 Temperature Pulse Rate 96 H 100 H Respiratory Rate 24 30 H Blood Pressure 120/67 Pulse Oximetry 99 99 Oxygen Delivery Method 09/07/22 21:21 09/07/22 21:25 09/07/22 21:25 Temperature Pulse Rate 98 H Respiratory Rate 24 Blood Pressure 125/81 126/64 Pulse Oximetry 97 Oxygen Delivery Method 09/07/22 21:30 09/07/22 21:30 09/07/22 21:35 Temperature Pulse Rate 94 H 94 H Respiratory Rate 23 29 H Blood Pressure 122/63 Pulse Oximetry 97 98 Oxygen Delivery Method 09/07/22 21:35 09/07/22 21:44 09/07/22 21:44 Temperature Pulse Rate 96 H Respiratory Rate 28 H Blood Pressure 127/67 120/67 Pulse Oximetry 98 Oxygen Delivery Method 09/07/22 22:00 Temperature Pulse Rate 91 H Respiratory Rate 26 H Blood Pressure Pulse Oximetry 99 Oxygen Delivery Method Oxygen Delivery Method Room Air Narrative Exam Narrative: General: Patient is a well-developed, well-nourished in no distress at this time. HEENT: Normocephalic, atraumatic, extraocular muscles intact, oral pharynx is clear and mucous membranes are moist. Neck is supple and symmetric, trachea is midline, no adenopathy, no thyroid enlargement, nontender, no masses palpated. Positive mild JVD Chest: Normal AP diameter and contour without kyphoscoliosis, no nasal flaring, retractions, or tachypneic labored Lungs: Auscultation of all lung thao are clear without adventitious sounds, wheezes, rhonchi, or rales. Cardio: regular rate and irregular rhythm without murmur, rubs, or gallops, no carotid bruit, no cardiac pulsations present. Abdomen: Soft nontender, negative for organomegaly, or masses. Bowel sounds are present in all 4 quadrants without guarding or rebound, no CVA tenderness. Musculoskeletal: Muscle strength and tone are equal within normal limits, no deformity, crepitus, effusions, cyanosis, clubbing. Positive bilateral +3 nonpitting lower extremity edema. Full range of motion intact radial and pedal pulses are normal. Skin: Warm dry and intact without rashes, ulcerations or petechiae. No signs of skin wounds or toe ulcers/diabetic ulcers. Neuro: Alert and orientated x3, moves all extremities, sensation to touch intact, no gross deficits noted of cranial nerves. Psych: Patient has a well-kept appearance, appropriate affect. Objective Labs 09/07/22 19:34 09/07/22 19:34 Labs: Laboratory Results - last 24 hr 09/07/22 09/07/22 09/07/22 19:34 19:34 19:34 WBC 9.8 RBC 3.92 L Hgb 10.7 L Hct 33.0 L MCV 84.4 MCH 27.3 MCHC 32.4 RDW 15.5 H Plt Count 265 Neut % (Auto) Not Reportable Lymph % (Auto) Not Reportable [place] % (Auto) Not Reportable Eos % (Auto) Not Reportable Baso % (Auto) Not Reportable Lymph # (Auto) Not Reportable [place] # (Auto) Not Reportable Baso # (Auto) Not Reportable Total Counted 100 Seg Neutrophils % 71.0 H Lymphocytes % (Manual) 20.0 L Monocytes % (Manual) 7.0 Basophils % (Manual) 2.0 H Neutrophils # (Manual) 6958 H RBC Morphology See below Anisocytosis 1+ H Ovalocytes 1+ H PT 16.4 H INR 1.4 H APTT 34 Sodium 136 L Potassium 4.1 Chloride 104 Carbon Dioxide 21 L BUN 28 H Creatinine 1.33 H Estimated GFR 43 L BUN/Creatinine Ratio 21.1 Glucose 188 H Calcium 8.5 Magnesium 1.7 Total Bilirubin 1.8 H AST 29 ALT 22 Alkaline Phosphatase 149 H Total Creatine Kinase 65 CK-MB (CK-2) TNP CK-MB (CK-2) Rel Index TNP Troponin I 0.314 H* NT-Pro-B Natriuret Pep 08758 H Total Protein 8.2 Albumin 3.8 Globulin 4.4 H Albumin/Globulin Ratio 0.9 L Lipase 155 Assessment & Plan Assessment & Plan narrative: Julia Osorio is a 72 F with a hx of with PMH DM on insulin, HTN, CKD, chronic toe ulcers, CHF and possible hx of at least one NSTEMI in the past presented to ED complaining of increased lower extremity edema and left-sided chest pressure intermittently over the last 2 days.? Admitted for NSTEMI 1. NSTEMI, with cardiomegaly, pulmonary edema, acute, present on admission -20 beat run ventricular tachycardia (asymptomatic) -patient admitted to the ICU with tele comic book artist-report called to Dr. Kim -ED- 20 beat run of V-tach asymptomatic, +3 lower extremity edema, positive JVD, with no foot skin or toe wounds. Patient's -initial troponin 0.314, repeat 0.275. -continue to trend -Dr. Miguel consulted Dr. Medrano cardiology at [facility]-recommends the patient be transferred to [facility] for heart catheterization. Dr. Miguel did fax over face sheet to [facility] patient is 3rd in the Q for transfer for cardiac catheterization. recommended the patient be placed on a -heparin drip, monitor for bleeding/heparin protocol -started metoprolol 12.5 bid, Lasix 20mg Iv QD, fluid restriction -echo and nuclear stress tomorrow -if patient develops recurrent symptomatic runs of [id number] amiodarone loading dose -BNP 52135-rs echo in records for verification of CHF -chest x-ray demonstrated cardiomegaly with pulmonary edema likely suggestive of heart failure -repeat BNP, PT/INR, TSH, urine culture 2. CKD stage 2, chronic, present on admission -baseline creatinine 1.34-1.77, BUN 07/24/2023, GFR 30-42 -on admit creatinine 1.33, BUN 28, GFR 43 -trend renal labs -avoid nephrotoxic medication 3. Type 2 Diabetes on insulin, acute on chronic, present on admission -admitted under diabetic protocol -Continue lantus and medium sliding scale -check glucose achs 4. Hypertension, essential, with cardiomegaly, chronic, present on [id number] -continue amlodipine in addition to new metoprolol 5. Overweight, mild, acute on chronic, present on admission -BMI 29.1 -dietary consult ordered regarding nutritional education and information for dietary, lifestyle, exercise, and weight changes. -the patient is at much higher risk for medical and surgical complications due to obesity as it relates to chronic illnesses:, and acute illness. The patient's obesity increases the difficulty and complexity of medical and/or surgical interventions, management and increases the chances of poor outcome such as morbidity and mortality as well as impaired wound healing. CODE: Full Surrogate decisionmaker: Jennifer Prater, daughter COVID PCR: Negative DVT/VTE prophylaxis: Heparin drip and SCDs Disposition: Patient admitted to ICU with tele comic book artist management expected length of stay greater than 2 midnights, with plan for transfer to [facility] for cardiac catheterization tomorrow. I have utilized all available immediate resources to obtain, update, or review the patient's current medications. I confirmed that the patient's advanced care plan is present, Code status is documented and/or surrogate decision maker is listed in the patient's medical record. I have personally reviewed patient's chart notes from PCP, specialists, diagnostic imaging, and laboratory results.
[2022-09-07 22:26] LABS: Troponin I 0.275 ng/mL (0.01-0.034)
[2022-09-07 22:50] LABS: Thyroid Stimulating Hormone 0.802 uIU/mL (0.47-4.68)
[2022-09-07] MEDS: INSULIN GLARGINE 100 UNIT/ML 3ML PEN 30 UNIT SUBCUT (23:05)
[2022-09-08] VITALS (25 sets, daily range): BP systolic 106–127; BP diastolic 61–74; PULSE 82–96; RESP 13–45; TEMP 36–36.8; O2SAT 98–100; BMI 29.0
[2022-09-08 00:17] LABS: COVID19 -Nasal RAPID Negative (Negative)
--- NOTE | 2022-09-08 00:58 | P.TELICUCN_ITS ---
History of Present Illness Consult details IF CAMERA ACTIVATED, patient seen via real-time interactive audiovisual communication: Camera activated Chief complaint: Leg pain Reason for consult: NSTEMI Requesting provider: Angelica Franklin Consent obtained for tele-wind turbine erector care: Yes Patient Location: ICU Provider location (State): [place] Other participants/roles: Bedside RN and LETITIA Angelica Franklin Narrative: Patient is a 72 year old female with history of DM, CKD, and HTN who presents with chest pain and worsening LE swelling. Associated with orthopnea. On presentation, labs notable for Cr 1.33, Hb 10.7, troponin 0.314 -> 0.275, and NT-BNP 77911. By report patient has refused coronary angiogram and there is no bed available for transfer. Started on heparin gtt and admitted to ICU for further management. [facility] Medical History (Updated 09/08/22 @ 01:05 by Augusto Kim MD) Chronic renal insufficiency Coronary artery disease Diabetes Hypertension Social History household members: family Smoking Status: Never smoker Current Medications Current Medications Medications: Home Medications amlodipine 10 mg tablet 10 mg PO DAILY #90 tabs 09/14/21 [Rx] insulin glargine 100 unit/mL (3 mL) subcutaneous pen (Lantus Solostar U-100 Insulin) 30 unit SUBCUT DAILY 09/14/21 [History Confirmed 09/14/21] metformin 1,000 mg tablet 1,000 mg PO DAILY 09/14/21 [History Confirmed 09/14/21] furosemide 20 mg tablet (Lasix) 20 mg PO BID #10 tabs 11/15/21 [Rx] Visit Medications (administered) Generic Name Dose Route Start Last Admin Trade Name Freq PRN Reason Stop Dose Admin Heparin Sodium/Dextrose 25,000 unit in 500 mls @ 20 mls/hr 09/07/22 21:15 09/07/22 21:37 Heparin Drip IV 1,000 units/hr CONT AKASH 20 mls/hr Administration Protocol 1,000 UNITS/HR Insulin Glargine 30 unit 09/07/22 22:42 09/07/22 23:05 Insulin Glargine 100 Unit/Ml 3ml Pen SUBCUT 30 unit DAILY AKASH Administration Exam Vital Signs (past 8 hours): - 09/07/22 19:09 09/07/22 21:20 09/07/22 21:32 Temperature 98.4 F Pulse Rate 98 H Respiratory Rate 20 Blood Pressure 131/79 125/81 122/63 Blood Pressure [Right Arm] Pulse Oximetry 97 Oxygen Delivery Method Room Air 09/07/22 21:41 09/07/22 21:12 09/07/22 21:21 Temperature Pulse Rate 96 H 100 H Respiratory Rate 24 30 H Blood Pressure 120/67 Blood Pressure [Right Arm] Pulse Oximetry 99 99 Oxygen Delivery Method 09/07/22 21:21 09/07/22 21:25 09/07/22 21:25 Temperature Pulse Rate 98 H Respiratory Rate 24 Blood Pressure 125/81 126/64 Blood Pressure [Right Arm] Pulse Oximetry 97 Oxygen Delivery Method 09/07/22 21:30 09/07/22 21:30 09/07/22 21:35 Temperature Pulse Rate 94 H 94 H Respiratory Rate 23 29 H Blood Pressure 122/63 Blood Pressure [Right Arm] Pulse Oximetry 97 98 Oxygen Delivery Method 09/07/22 21:35 09/07/22 21:44 09/07/22 21:44 Temperature Pulse Rate 96 H Respiratory Rate 28 H Blood Pressure 127/67 120/67 Blood Pressure [Right Arm] Pulse Oximetry 98 Oxygen Delivery Method 09/07/22 22:00 09/07/22 23:54 09/07/22 22:30 Temperature Pulse Rate 91 H 90 94 H Respiratory Rate 26 H 19 Blood Pressure Blood Pressure [Right Arm] 114/69 Pulse Oximetry 99 98 99 Oxygen Delivery Method Room Air 09/07/22 23:00 09/07/22 23:30 09/07/22 23:54 Temperature Pulse Rate 92 H 91 H 90 Respiratory Rate 18 17 18 Blood Pressure Blood Pressure [Right Arm] Pulse Oximetry 99 98 97 Oxygen Delivery Method 09/07/22 23:54 09/08/22 00:00 09/08/22 00:41 Temperature 96.8 F L Pulse Rate 90 92 H Respiratory Rate 18 23 Blood Pressure 114/69 Blood Pressure [Right Arm] Pulse Oximetry 98 99 Oxygen Delivery Method 09/08/22 00:44 09/08/22 00:44 Temperature Pulse Rate 90 Respiratory Rate 17 Blood Pressure 114/74 Blood Pressure [Right Arm] Pulse Oximetry 99 Oxygen Delivery Method Oxygen Delivery Method Room Air Narrative Exam Narrative: NAD Objective Labs 09/07/22 19:34 09/07/22 19:34 Labs: Laboratory Results - last 24 hr 09/07/22 09/07/22 09/07/22 19:23 19:34 19:34 WBC 9.8 RBC 3.92 L Hgb 10.7 L Hct 33.0 L MCV 84.4 MCH 27.3 MCHC 32.4 RDW 15.5 H Plt Count 265 Neut % (Auto) Not Reportable Lymph % (Auto) Not Reportable [place] % (Auto) Not Reportable Eos % (Auto) Not Reportable Baso % (Auto) Not Reportable Lymph # (Auto) Not Reportable [place] # (Auto) Not Reportable Baso # (Auto) Not Reportable Total Counted 100 Seg Neutrophils % 71.0 H Lymphocytes % (Manual) 20.0 L Monocytes % (Manual) 7.0 Basophils % (Manual) 2.0 H Neutrophils # (Manual) 6958 H RBC Morphology See below Anisocytosis 1+ H Ovalocytes 1+ H PT 16.4 H INR 1.4 H APTT 34 Sodium Potassium Chloride Carbon Dioxide BUN Creatinine Estimated GFR BUN/Creatinine Ratio Glucose Calcium Magnesium Total Bilirubin AST ALT Alkaline Phosphatase Total Creatine Kinase CK-MB (CK-2) CK-MB (CK-2) Rel Index Troponin I NT-Pro-B Natriuret Pep Total Protein Albumin Globulin Albumin/Globulin Ratio Lipase TSH 0.802 SARS-CoV-2 (PCR) 09/07/22 09/07/22 09/07/22 19:34 21:50 23:50 WBC RBC Hgb Hct MCV MCH MCHC RDW Plt Count Neut % (Auto) Lymph % (Auto) [place] % (Auto) Eos % (Auto) Baso % (Auto) Lymph # (Auto) [place] # (Auto) Baso # (Auto) Total Counted Seg Neutrophils % Lymphocytes % (Manual) Monocytes % (Manual) Basophils % (Manual) Neutrophils # (Manual) RBC Morphology Anisocytosis Ovalocytes PT INR APTT Sodium 136 L Potassium 4.1 Chloride 104 Carbon Dioxide 21 L BUN 28 H Creatinine 1.33 H Estimated GFR 43 L BUN/Creatinine Ratio 21.1 Glucose 188 H Calcium 8.5 Magnesium 1.7 Total Bilirubin 1.8 H AST 29 ALT 22 Alkaline Phosphatase 149 H Total Creatine Kinase 65 CK-MB (CK-2) TNP CK-MB (CK-2) Rel Index TNP Troponin I 0.314 H* 0.275 H* NT-Pro-B Natriuret Pep 85528 H Total Protein 8.2 Albumin 3.8 Globulin 4.4 H Albumin/Globulin Ratio 0.9 L Lipase 155 TSH SARS-CoV-2 (PCR) Negative Assessment & Plan Assessment and plan (1) Acute kidney injury: Status: Acute Plan: -- Unknown baseline Cr -- Avoid nephrotoxin agents -- Daily BMP -- Monitor UOP (2) NSTEMI (non-ST elevated myocardial infarction): Status: Acute Plan: -- Secondary to demand ischemia vs plaque rupture -- On heparin gtt -- On ASA and lipitor -- Check TTE -- Recommend transfer to tertiary care for potential coronary angiogram if agreeable with patient -- Trend troponin (3) Diabetes: Status: Acute Plan: -- On lantus and ISS -- Goal BS < 180 Time Spent With Patient Time with patient: less than 30 minutes
--- NOTE | 2022-09-08 01:23 | PC.NURSE ---
Addendum entered by Yue Harper R.N. 09/08/22 03:50: 0300- PTT result 219. Heparin held x60 minutes and will be restarted at 14ml/hr. Next PTT 0900. Urine sent per order, culture pending. Will monitor. Original Note: 0100- Patient oriented to the room 231. Patient speaks broken chadian and family is not available at this time. Bed alarm is on. Patient voided 700cc yellow urine. Vitals WNL. Dr. Kim consulted. Patient is in no distress. Lungs are coarse/bibasilar. No 02 requirements at this time. Heparin gtt infusion per MD order. Will monitor.
[2022-09-08 01:59] LABS: MRSA (Nasal) PCR Not Detected (Not Detect)
[2022-09-08 02:59] LABS: PTT Partial Thromboplastin Tim 219 SECONDS (26-36)
[2022-09-08 03:05] LABS: Troponin I 0.249 ng/mL (0.01-0.034)
[2022-09-08 03:17] LABS: Appearance Urine UA CLEAR; Bilirubin Urine UA NEGATIVE (NEGATIVE); Color Urine UA YELLOW; Glucose Urine UA NEGATIVE (Negative); Ketones Urine UA NEGATIVE (NEGATIVE); Leukocyte Esterase Urine UA 1+ (NEGATIVE); Nitrite Urine UA NEGATIVE (Negative); Occult Blood Urine UA 1+ (Negative); Protein Urine UA NEGATIVE (Negative)
[2022-09-08 03:18] LABS: pH Urine UA 5.5 (4.5-8.0)
[2022-09-08 03:43] LABS: Bacteria Urine Many (>30); RBC Urine None Seen (0-5/HPF); WBC Urine 1-5/HPF (0-5/HPF)
[2022-09-08 05:44] LABS: Add Manual Diff / Slide Review NO; Basophils Absolute Auto 100 /uL (0-100); Basophils Percent Auto 1.3 % (0-2); Eosinophils Absolute Auto 100 /uL (0-450); Eosinophils Percent Auto 1.3 % (2-4); Hematocrit 30.2 % (36-46); Hemoglobin 9.9 g/dL (12.0-16.0); Lymphocytes Absolute Auto 2300 /uL (1100-4500); Lymphocytes Percent Auto 24.4 % (25-40); Mean Corpuscular HGB Conc 32.7 % (30-36); Mean Corpuscular Hemoglobin 27.6 PG (26-34); Mean Corpuscular Volume 84.2 fL (80-100); Monocytes Absolute Auto 1100 /uL (0-900); Monocytes Percent Auto 11.2 % (3-14); Neutrophils Absolute Auto 5800 /uL (1500-7000); Neutrophils Percent Auto 61.8 % (50-75); Platelet Count 245 X10^3/uL (150-400); Red Blood Cell Count 3.58 X10^6/uL (4.0-5.2); Red Cell Distribution Width 15.6 % (11.6-14.8); White Blood Cell Count 9.5 X10^3/uL (4.5-11.0)
[2022-09-08 05:55] LABS: Alanine Aminotransferase 20 IU/L (<35); Albumin 3.2 g/dL (3.5-5.0); Albumin Globulin Ratio 0.8 (1.0-2.8); Alkaline Phosphatase 120 U/L (38-126); Aspartate Aminotransferase 24 IU/L (14-36); BUN Creatinine Ratio 21.4 (6-22); Bilirubin Total 1.5 mg/dL (0.2-1.3); Blood Urea Nitrogen 27 mg/dL (7-17); Calcium 8.4 mg/dL (8.4-10.2); Carbon Dioxide 24 mmol/L (22-32); Chloride 105 mmol/L (98-107); Cholesterol 111 mg/dL (140-199); Estimated Glomerular Filt Rate 45 mL/min (>60); Globulin 3.8 g/dL (1.7-4.1); Glucose 116 mg/dL (80-110); HDL Cholesterol 28 mg/dL (40-60); HEMOLYSIS < 15 (0-50); LDL Cholesterol Calculated 73 mg/dL (<100); Magnesium 1.7 mg/dL (1.6-2.3); Potassium 3.7 mmol/L (3.4-5.1); Sodium 139 mmol/L (137-145); Triglycerides 48 mg/dL (35-150)
[2022-09-08 06:01] LABS: NT-proBNP (BNP-Adult 18+) 12300 pg/mL (<125)
[2022-09-08 06:52] LABS: INR 1.5 (0.9-1.3); Prothrombin Time 17.5 SECONDS (10.1-12.7)
[2022-09-08 09:18] LABS: Troponin I 0.195 ng/mL (0.01-0.034)
[2022-09-08] MEDS: INSULIN GLARGINE 100 UNIT/ML 3ML PEN 30 UNIT SUBCUT (09:52)
[2022-09-08] MEDS: METOPROLOL IR 25 MG TABLET 12.5 MG PO ×2 (09:53→21:12)
[2022-09-08] MEDS: FUROSEMIDE 20 MG/2 ML VIAL IV (09:53)
[2022-09-08] MEDS: MAGNESIUM CHLORIDE 64 MG TABLET 128 MG PO (09:53)
[2022-09-08] MEDS: ASPIRIN EC 325 MG TABLET PO (09:53)
[2022-09-08] MEDS: AMLODIPINE 5 MG TABLET 10 MG PO (09:54)
--- NOTE | 2022-09-08 10:21 | PM.PN.EICU ---
Subjective Subjective IF CAMERA ACTIVATED, patient seen via real-time interactive audiovisual communication: Camera activated Consent obtained for tele-social work supervisor care: Yes Patient Location: ICU Provider location (State): [place] Other participants/roles: Dr. Rosas Interval history: no acute events since admission no chest pain/sob Current Medications Current Medications Medications: Home Medications amlodipine 10 mg tablet 10 mg PO DAILY #90 tabs 09/14/21 [Rx] insulin glargine 100 unit/mL (3 mL) subcutaneous pen (Lantus Solostar U-100 Insulin) 30 unit SUBCUT DAILY 09/14/21 [History Confirmed 09/14/21] metformin 1,000 mg tablet 1,000 mg PO DAILY 09/14/21 [History Confirmed 09/14/21] furosemide 20 mg tablet (Lasix) 20 mg PO BID #10 tabs 11/15/21 [Rx] Visit Medications (administered) Generic Name Dose Route Start Last Admin Trade Name Freq PRN Reason Stop Dose Admin Amlodipine Besylate 10 mg 09/08/22 09:00 09/08/22 09:54 Amlodipine 5 Mg Tablet PO 10 mg DAILY AKASH Administration Aspirin 325 mg 09/08/22 09:00 09/08/22 09:53 Aspirin Ec 325 Mg Tablet PO 325 mg DAILY AKASH Administration Furosemide 20 mg 09/08/22 09:00 09/08/22 09:53 Furosemide 20 Mg/2 Ml Vial IV 20 mg DAILY AKASH Administration Heparin Sodium/Dextrose 25,000 unit in 500 mls @ 20 mls/hr 09/07/22 21:15 09/08/22 04:00 Heparin Drip IV 700 units/hr CONT AKASH 14 mls/hr Titration Protocol 1,000 UNITS/HR Insulin Glargine 30 unit 09/07/22 22:42 09/08/22 09:52 Insulin Glargine 100 Unit/Ml 3ml Pen SUBCUT 30 unit DAILY AKASH Administration Insulin Human Lispro 0 unit 09/08/22 07:45 09/08/22 07:53 Insulin Lispro 100 Unit/Ml 3ml Vial SUBCUT Not Given [facility] Protocol Metoprolol Tartrate 12.5 mg 09/08/22 09:00 09/08/22 09:53 Metoprolol Ir 25 Mg Tablet PO 12.5 mg BID AKASH Administration Objective Labs 09/08/22 04:50 04/07/23 04:50 Labs: Laboratory Results - last 24 hr 09/07/22 09/07/22 09/07/22 19:23 19:34 19:34 WBC 9.8 RBC 3.92 L Hgb 10.7 L Hct 33.0 L MCV 84.4 MCH 27.3 MCHC 32.4 RDW 15.5 H Plt Count 265 Neut % (Auto) Not Reportable Lymph % (Auto) Not Reportable [place] % (Auto) Not Reportable Eos % (Auto) Not Reportable Baso % (Auto) Not Reportable Neut # (Auto) Lymph # (Auto) Not Reportable [place] # (Auto) Not Reportable Eos # (Auto) Baso # (Auto) Not Reportable Total Counted 100 Seg Neutrophils % 71.0 H Lymphocytes % (Manual) 20.0 L Monocytes % (Manual) 7.0 Basophils % (Manual) 2.0 H Neutrophils # (Manual) 6958 H RBC Morphology See below Anisocytosis 1+ H Ovalocytes 1+ H PT 16.4 H INR 1.4 H APTT 34 Sodium Potassium Chloride Carbon Dioxide BUN Creatinine Estimated GFR BUN/Creatinine Ratio Glucose Calcium Magnesium Total Bilirubin AST ALT Alkaline Phosphatase Total Creatine Kinase CK-MB (CK-2) CK-MB (CK-2) Rel Index Troponin I NT-Pro-B Natriuret Pep Total Protein Albumin Globulin Albumin/Globulin Ratio Triglycerides Cholesterol LDL Cholesterol, Calc HDL Cholesterol Lipase TSH 0.802 Urine Color Urine Appearance Urine pH Ur Specific [place] Urine Protein Urine Glucose (UA) Urine Ketones Urine Occult Blood Urine Nitrate Urine Bilirubin Urine Urobilinogen Ur Leukocyte Esterase Urine RBC Urine WBC Urine Bacteria Micro UA Comment Nasal Screen MRSA (PCR) SARS-CoV-2 (PCR) 09/07/22 09/07/22 09/07/22 19:34 21:50 23:50 WBC RBC Hgb Hct MCV MCH MCHC RDW Plt Count Neut % (Auto) Lymph % (Auto) [place] % (Auto) Eos % (Auto) Baso % (Auto) Neut # (Auto) Lymph # (Auto) [place] # (Auto) Eos # (Auto) Baso # (Auto) Total Counted Seg Neutrophils % Lymphocytes % (Manual) Monocytes % (Manual) Basophils % (Manual) Neutrophils # (Manual) RBC Morphology Anisocytosis Ovalocytes PT INR APTT Sodium 136 L Potassium 4.1 Chloride 104 Carbon Dioxide 21 L BUN 28 H Creatinine 1.33 H Estimated GFR 43 L BUN/Creatinine Ratio 21.1 Glucose 188 H Calcium 8.5 Magnesium 1.7 Total Bilirubin 1.8 H AST 29 ALT 22 Alkaline Phosphatase 149 H Total Creatine Kinase 65 CK-MB (CK-2) TNP CK-MB (CK-2) Rel Index TNP Troponin I 0.314 H* 0.275 H* NT-Pro-B Natriuret Pep 73083 H Total Protein 8.2 Albumin 3.8 Globulin 4.4 H Albumin/Globulin Ratio 0.9 L Triglycerides Cholesterol LDL Cholesterol, Calc HDL Cholesterol Lipase 155 TSH Urine Color Urine Appearance Urine pH Ur Specific [place] Urine Protein Urine Glucose (UA) Urine Ketones Urine Occult Blood Urine Nitrate Urine Bilirubin Urine Urobilinogen Ur Leukocyte Esterase Urine RBC Urine WBC Urine Bacteria Micro UA Comment Nasal Screen MRSA (PCR) SARS-CoV-2 (PCR) Negative 09/08/22 09/08/22 09/08/22 00:35 02:15 02:15 WBC RBC Hgb Hct MCV MCH MCHC RDW Plt Count Neut % (Auto) Lymph % (Auto) [place] % (Auto) Eos % (Auto) Baso % (Auto) Neut # (Auto) Lymph # (Auto) [place] # (Auto) Eos # (Auto) Baso # (Auto) Total Counted Seg Neutrophils % Lymphocytes % (Manual) Monocytes % (Manual) Basophils % (Manual) Neutrophils # (Manual) RBC Morphology Anisocytosis Ovalocytes PT INR APTT 219 H* D Sodium Potassium Chloride Carbon Dioxide BUN Creatinine Estimated GFR BUN/Creatinine Ratio Glucose Calcium Magnesium Total Bilirubin AST ALT Alkaline Phosphatase Total Creatine Kinase CK-MB (CK-2) CK-MB (CK-2) Rel Index Troponin I 0.249 H* NT-Pro-B Natriuret Pep Total Protein Albumin Globulin Albumin/Globulin Ratio Triglycerides Cholesterol LDL Cholesterol, Calc HDL Cholesterol Lipase TSH Urine Color Urine Appearance Urine pH Ur Specific [place] Urine Protein Urine Glucose (UA) Urine Ketones Urine Occult Blood Urine Nitrate Urine Bilirubin Urine Urobilinogen Ur Leukocyte Esterase Urine RBC Urine WBC Urine Bacteria Micro UA Comment Nasal Screen MRSA (PCR) Not detected SARS-CoV-2 (PCR) 09/08/22 09/08/22 09/08/22 02:58 04:50 04:50 WBC 9.5 RBC 3.58 L Hgb 9.9 L Hct 30.2 L MCV 84.2 MCH 27.6 MCHC 32.7 RDW 15.6 H Plt Count 245 Neut % (Auto) 61.8 Lymph % (Auto) 24.4 L [place] % (Auto) 11.2 Eos % (Auto) 1.3 L Baso % (Auto) 1.3 Neut # (Auto) 5800 Lymph # (Auto) 2300 [place] # (Auto) 1100 H Eos # (Auto) 100 Baso # (Auto) 100 Total Counted Seg Neutrophils % Lymphocytes % (Manual) Monocytes % (Manual) Basophils % (Manual) Neutrophils # (Manual) RBC Morphology Anisocytosis Ovalocytes PT 17.5 H INR 1.5 H APTT Sodium Potassium Chloride Carbon Dioxide BUN Creatinine Estimated GFR BUN/Creatinine Ratio Glucose Calcium Magnesium Total Bilirubin AST ALT Alkaline Phosphatase Total Creatine Kinase CK-MB (CK-2) CK-MB (CK-2) Rel Index Troponin I NT-Pro-B Natriuret Pep Total Protein Albumin Globulin Albumin/Globulin Ratio Triglycerides Cholesterol LDL Cholesterol, Calc HDL Cholesterol Lipase TSH Urine Color Yellow Urine Appearance Clear Urine pH 5.5 Ur Specific [place] 1.010 Urine Protein Negative Urine Glucose (UA) Negative Urine Ketones Negative Urine Occult Blood 1+ H Urine Nitrate Negative Urine Bilirubin Negative Urine Urobilinogen 1.0 Ur Leukocyte Esterase 1+ H Urine RBC None seen Urine WBC 1-5/hpf Urine Bacteria Many (>30) H Micro UA Comment * Nasal Screen MRSA (PCR) SARS-CoV-2 (PCR) 09/08/22 09/08/22 04:50 08:17 WBC RBC Hgb Hct MCV MCH MCHC RDW Plt Count Neut % (Auto) Lymph % (Auto) [place] % (Auto) Eos % (Auto) Baso % (Auto) Neut # (Auto) Lymph # (Auto) [place] # (Auto) Eos # (Auto) Baso # (Auto) Total Counted Seg Neutrophils % Lymphocytes % (Manual) Monocytes % (Manual) Basophils % (Manual) Neutrophils # (Manual) RBC Morphology Anisocytosis Ovalocytes PT INR APTT Sodium 139 Potassium 3.7 Chloride 105 Carbon Dioxide 24 BUN 27 H Creatinine 1.26 H Estimated GFR 45 L BUN/Creatinine Ratio 21.4 Glucose 116 H Calcium 8.4 Magnesium 1.7 Total Bilirubin 1.5 H AST 24 ALT 20 Alkaline Phosphatase 120 Total Creatine Kinase CK-MB (CK-2) CK-MB (CK-2) Rel Index Troponin I 0.195 H* NT-Pro-B Natriuret Pep 79733 H Total Protein 7.0 Albumin 3.2 L Globulin 3.8 Albumin/Globulin Ratio 0.8 L Triglycerides 48 Cholesterol 111 L LDL Cholesterol, Calc 73 HDL Cholesterol 28 L Lipase TSH Urine Color Urine Appearance Urine pH Ur Specific [place] Urine Protein Urine Glucose (UA) Urine Ketones Urine Occult Blood Urine Nitrate Urine Bilirubin Urine Urobilinogen Ur Leukocyte Esterase Urine RBC Urine WBC Urine Bacteria Micro UA Comment Nasal Screen MRSA (PCR) SARS-CoV-2 (PCR) Exam Vital Signs (past 8 hours): - 09/08/22 03:00 09/08/22 03:10 09/08/22 03:10 Temperature Pulse Rate 90 87 Respiratory Rate 24 45 H Blood Pressure 115/70 Pulse Oximetry 100 100 Oxygen Flow Rate 09/08/22 04:00 09/08/22 04:00 09/08/22 08:19 Temperature Pulse Rate 88 87 Respiratory Rate 16 Blood Pressure 123/72 116/70 Pulse Oximetry 99 100 Oxygen Flow Rate 0 09/08/22 08:48 Temperature 98.2 F Pulse Rate Respiratory Rate 19 Blood Pressure Pulse Oximetry Oxygen Flow Rate Oxygen Delivery Method Room Air Oxygen Flow Rate 0 Assessment & Plan Assessment and plan (1) Acute kidney injury: Status: Acute Plan: -check urine lytes -renal sono -ivf -monitor ins/outs -replace lytes prn (2) NSTEMI (non-ST elevated myocardial infarction): Status: Acute Plan: -asa/statin -hep drip -check echo -xfer for cardio eval and cath (3) Diabetes: Status: Acute Plan: keep glucose 140-180s discussed with Dr. Rosas Time Spent With Patient Time with patient: less than 30 minutes
[2022-09-08 11:18] LABS: PTT Partial Thromboplastin Tim 69 SECONDS (26-36)
--- NOTE | 2022-09-08 12:48 | CM.DPNOTE ---
Addendum entered by JACQUES Collier 09/10/22 10:53: ADD: Discharge note- Plan of care reviewed by Dr Rosas w/patient and [place] speaking family member yesterday and patient wants to discharge home, does not want the heart cath r/t being afraid of needles. Patient agreed to spending the night last night and discharged home w/family early this morning in order to get to nondenominational on this Sunday Plan: Discharge home w/family, indp, family to transport, close outpatient follow up recommended Addendum entered by JACQUES Collier 09/09/22 12:07: ADD: Dr Rosas still anticipates transfer needed for cardiology but would like to discuss plan of care with patient with Bailee angio technologist which is not available through language line over the weekend. Family member arriving today to assist in this conversation- await transfer vs home w/close outpatient follow up CM team will continue to follow along Original Note: DCP Note According to conversation in multidisciplinary rounds - patient on the transfer list for heart cath Patient from [facility] and speaks minimal [place] Islander per Dr Rosas's report CM team will plan to follow along closely and can complete a full initial assessment of need if patient remains admitted at [facility]
[2022-09-08] MEDS: INSULIN LISPRO 100 UNIT/ML 3ML VIAL SUBCUT (17:11)
--- NOTE | 2022-09-08 20:13 | PM.ICURNDS ---
- Date Patient Seen: 09/08/22 Time Patient Seen: 20:13 :: This patient was seen via real time interactive two-way audiovisual telecommunication. Note: No acute issues during the day. TTE showed EF 20-25% with dilated IVC. On heparin gtt. Awaiting for transfer to OSH for cardiac evaluation. Cont diuresis to seek net negative fluid balance. D/w RN at bedside.
--- NOTE | 2022-09-08 20:29 | P.PN_ITS ---
Subjective Subjective Interval history: 72 yo female w/DM2-insulin dependent, HTN, CKD, chronic toe ulcers, CHF and prior NSTEMI admitted w/NSTEMI, NS VT x 20 beat run, and evidence of CHF. Patient reports she is been having leg swelling for at least 2 months. She denies any chest pain today. No shortness of breath. Her primary language was difficult to ascertain but she did tell me she was from [facility] (later in the day, nursing was able to talk to family who advised that her 1st language is [email or web address]). Exam Vital Signs (past 8 hours): - 09/08/22 16:13 09/08/22 13:00 09/08/22 14:00 Pulse Rate 89 86 Respiratory Rate 24 16 Blood Pressure Pulse Oximetry 100 100 Oxygen Delivery Method Room Air 09/08/22 15:00 09/08/22 16:00 09/08/22 16:00 Pulse Rate 86 86 Respiratory Rate 16 16 Blood Pressure 106/61 Pulse Oximetry 98 100 Oxygen Delivery Method Oxygen Delivery Method Room Air Oxygen Flow Rate 0 Narrative Exam Narrative: GEN: Elderly female, Alert and oriented x 2 (may be oriented x 3 but the language barrier made that difficult to obtain), NAD HEENT:NC, Face symmetric CHEST: Respiratory excursions symmetric, CTAB CV: RRR, no M/R/G ABD: Soft, NT/ND, BT present in all 4 quadrants, no organomeg jaden or masses EXTR: warm, well perfused, no C/C, 2+ nonpitting LE edema SKIN: warm and dry, no rash NEURO: Alert and oriented x 2, nonfocal Objective Labs 09/08/22 04:50 09/08/22 04:50 Labs: Laboratory Results - last 24 hr 09/07/22 09/07/22 09/07/22 19:23 21:50 23:50 WBC RBC Hgb Hct MCV MCH MCHC RDW Plt Count Neut % (Auto) Lymph % (Auto) [place] % (Auto) Eos % (Auto) Baso % (Auto) Neut # (Auto) Lymph # (Auto) [place] # (Auto) Eos # (Auto) Baso # (Auto) PT INR APTT Sodium Potassium Chloride Carbon Dioxide BUN Creatinine Estimated GFR BUN/Creatinine Ratio Glucose Calcium Magnesium Total Bilirubin AST ALT Alkaline Phosphatase Troponin I 0.275 H* NT-Pro-B Natriuret Pep Total Protein Albumin Globulin Albumin/Globulin Ratio Triglycerides Cholesterol LDL Cholesterol, Calc HDL Cholesterol TSH 0.802 Urine Color Urine Appearance Urine pH Ur Specific [place] Urine Protein Urine Glucose (UA) Urine Ketones Urine Occult Blood Urine Nitrate Urine Bilirubin Urine Urobilinogen Ur Leukocyte Esterase Urine RBC Urine WBC Urine Bacteria Micro UA Comment Nasal Screen MRSA (PCR) SARS-CoV-2 (PCR) Negative 09/08/22 09/08/22 09/08/22 00:35 02:15 02:15 WBC RBC Hgb Hct MCV MCH MCHC RDW Plt Count Neut % (Auto) Lymph % (Auto) [place] % (Auto) Eos % (Auto) Baso % (Auto) Neut # (Auto) Lymph # (Auto) [place] # (Auto) Eos # (Auto) Baso # (Auto) PT INR APTT 219 H* D Sodium Potassium Chloride Carbon Dioxide BUN Creatinine Estimated GFR BUN/Creatinine Ratio Glucose Calcium Magnesium Total Bilirubin AST ALT Alkaline Phosphatase Troponin I 0.249 H* NT-Pro-B Natriuret Pep Total Protein Albumin Globulin Albumin/Globulin Ratio Triglycerides Cholesterol LDL Cholesterol, Calc HDL Cholesterol TSH Urine Color Urine Appearance Urine pH Ur Specific [place] Urine Protein Urine Glucose (UA) Urine Ketones Urine Occult Blood Urine Nitrate Urine Bilirubin Urine Urobilinogen Ur Leukocyte Esterase Urine RBC Urine WBC Urine Bacteria Micro UA Comment Nasal Screen MRSA (PCR) Not detected SARS-CoV-2 (PCR) 09/08/22 09/08/22 09/08/22 02:58 04:50 04:50 WBC 9.5 RBC 3.58 L Hgb 9.9 L Hct 30.2 L MCV 84.2 MCH 27.6 MCHC 32.7 RDW 15.6 H Plt Count 245 Neut % (Auto) 61.8 Lymph % (Auto) 24.4 L [place] % (Auto) 11.2 Eos % (Auto) 1.3 L Baso % (Auto) 1.3 Neut # (Auto) 5800 Lymph # (Auto) 2300 [place] # (Auto) 1100 H Eos # (Auto) 100 Baso # (Auto) 100 PT 17.5 H INR 1.5 H APTT Sodium Potassium Chloride Carbon Dioxide BUN Creatinine Estimated GFR BUN/Creatinine Ratio Glucose Calcium Magnesium Total Bilirubin AST ALT Alkaline Phosphatase Troponin I NT-Pro-B Natriuret Pep Total Protein Albumin Globulin Albumin/Globulin Ratio Triglycerides Cholesterol LDL Cholesterol, Calc HDL Cholesterol TSH Urine Color Yellow Urine Appearance Clear Urine pH 5.5 Ur Specific [place] 1.010 Urine Protein Negative Urine Glucose (UA) Negative Urine Ketones Negative Urine Occult Blood 1+ H Urine Nitrate Negative Urine Bilirubin Negative Urine Urobilinogen 1.0 Ur Leukocyte Esterase 1+ H Urine RBC None seen Urine WBC 1-5/hpf Urine Bacteria Many (>30) H Micro UA Comment * Nasal Screen MRSA (PCR) SARS-CoV-2 (PCR) 09/08/22 09/08/22 09/08/22 04:50 08:17 10:50 WBC RBC Hgb Hct MCV MCH MCHC RDW Plt Count Neut % (Auto) Lymph % (Auto) [place] % (Auto) Eos % (Auto) Baso % (Auto) Neut # (Auto) Lymph # (Auto) [place] # (Auto) Eos # (Auto) Baso # (Auto) PT INR APTT 69 H D Sodium 139 Potassium 3.7 Chloride 105 Carbon Dioxide 24 BUN 27 H Creatinine 1.26 H Estimated GFR 45 L BUN/Creatinine Ratio 21.4 Glucose 116 H Calcium 8.4 Magnesium 1.7 Total Bilirubin 1.5 H AST 24 ALT 20 Alkaline Phosphatase 120 Troponin I 0.195 H* NT-Pro-B Natriuret Pep 13823 H Total Protein 7.0 Albumin 3.2 L Globulin 3.8 Albumin/Globulin Ratio 0.8 L Triglycerides 48 Cholesterol 111 L LDL Cholesterol, Calc 73 HDL Cholesterol 28 L TSH Urine Color Urine Appearance Urine pH Ur Specific [place] Urine Protein Urine Glucose (UA) Urine Ketones Urine Occult Blood Urine Nitrate Urine Bilirubin Urine Urobilinogen Ur Leukocyte Esterase Urine RBC Urine WBC Urine Bacteria Micro UA Comment Nasal Screen MRSA (PCR) SARS-CoV-2 (PCR) 09/08/22 13:49 WBC RBC Hgb Hct MCV MCH MCHC RDW Plt Count Neut % (Auto) Lymph % (Auto) [place] % (Auto) Eos % (Auto) Baso % (Auto) Neut # (Auto) Lymph # (Auto) [place] # (Auto) Eos # (Auto) Baso # (Auto) PT INR APTT Sodium Potassium Chloride Carbon Dioxide BUN Creatinine Estimated GFR BUN/Creatinine Ratio Glucose Calcium Magnesium Total Bilirubin AST ALT Alkaline Phosphatase Troponin I 0.120 H NT-Pro-B Natriuret Pep Total Protein Albumin Globulin Albumin/Globulin Ratio Triglycerides Cholesterol LDL Cholesterol, Calc HDL Cholesterol TSH Urine Color Urine Appearance Urine pH Ur Specific [place] Urine Protein Urine Glucose (UA) Urine Ketones Urine Occult Blood Urine Nitrate Urine Bilirubin Urine Urobilinogen Ur Leukocyte Esterase Urine RBC Urine WBC Urine Bacteria Micro UA Comment Nasal Screen MRSA (PCR) SARS-CoV-2 (PCR) [facility] Medical History Chronic renal insufficiency Coronary artery disease Diabetes Hypertension Family History (Updated 09/08/22 @ 04:24 by ADRIAN Hamilton) Father No problems noted. Mother No problems noted. Social History household members: family Smoking Status: Never smoker Assessment & Plan Assessment & Plan narrative: 1. NSTEMI Patient presented with an initial troponin of 0.314. On repeat, it was 0.275. Presented with chest pain in conjunction with evidence of congestive heart failure as well as ventricular irritability with a run of V-tach. She was initiated on heparin drip, metoprolol, and furosemide. These [place] [address]. Echo was performed today and revealed an EF of 20- 25%, severe global hypokinesis of left ventricle, severe mitral regurgitation, mild aortic stenosis, trace aortic regurgitation, moderate tricuspid regurgitation, and RV systolic pressure estimated to be at least 60 mmHg. Continue diuresis. Continue heparin as noted. Await transfer to higher level of care for cardiac intervention. 2. CKD stage 3 Creatinine stable at 1.26. Baseline GFR is in the 30-40 range 3. Type 2 diabetes, insulin dependent Continue Lantus. Blood sugars are well controlled with a high of 134 since admission 4. Hypertension Blood pressures are normotensive presently. 5. Normocytic anemia Hemoglobin was 10.7 on admission. 9.9 today. This appears consistent with her baseline. Code status Full Prophylaxis On heparin drip Disposition ICU
[2022-09-08 20:36] LABS: PTT Partial Thromboplastin Tim 62 SECONDS (26-36)
[2022-09-08 20:55] LABS: Troponin I 0.115 ng/mL (0.01-0.034)
[2022-09-08] MEDS: ATORVASTATIN 20 MG TABLET 40 MG PO (21:13)
[2022-09-08] MEDS: SODIUM CHLORIDE 0.9% FLUSH 10 ML IV (21:13)
[2022-09-08] MEDS: SENNOSIDES 8.6 MG TABLET 17.2 MG PO (21:13)
[2022-09-09] VITALS (17 sets, daily range): BP systolic 88–110; BP diastolic 56–70; PULSE 70–96; RESP 15–47; TEMP 36.2–36.8; O2SAT 89–100
[2022-09-09] MEDS: ACETAMINOPHEN 325 MG TABLET 650 MG PO ×2 (02:39→11:58)
[2022-09-09 04:26] LABS: Labcorp Hemoglobin (Hb) A1c 6.2 % (4.8-5.6)
[2022-09-09] MEDS: HEPARIN DRIP 25,000 UNIT/500 ML IV.SOLN 14 UNIT IV (06:26)
[2022-09-09] MEDS: INSULIN GLARGINE 100 UNIT/ML 3ML PEN 30 UNIT SUBCUT (08:35)
[2022-09-09] MEDS: ASPIRIN EC 325 MG TABLET PO (08:37)
[2022-09-09] MEDS: FUROSEMIDE 20 MG/2 ML VIAL IV (08:38)
[2022-09-09] MEDS: SODIUM CHLORIDE 0.9% FLUSH 10 ML IV ×2 (08:39→21:23)
[2022-09-09] MEDS: AMLODIPINE 5 MG TABLET 10 MG PO (08:48)
[2022-09-09] MEDS: METOPROLOL IR 25 MG TABLET 12.5 MG PO ×2 (08:48→21:19)
--- NOTE | 2022-09-09 08:54 | DIET.CONS ---
Dietary Consultation Note Admission Date: 09/07/2022 22:28 Assessment: RD consulted for BMI 29. Rec OP nutrition therapy. HgA1c and lipids well managed. Ht: 167.64 cm Wt: 81.6 kg BMI: 29.0 Last BM: () MNA: 14 Everette Score: 20 Diet: 09/07/22 Breakfast Carbohydrate Consistent Diet Diet Modifications: Carbohydrate level: Small (2 CHO) Bedtime snack: Yes Reflex DM orders: No Fluid Restriction Diet Diet Modifications: Total fluid amount: 2,000 Amount allotted to patient trays: 100 Free water included in total: Yes Fluid in addition to trays: 5725-9286 amount: 850 3266-2049 amount: 850 Heart Healthy Diet Diet Modifications: Low Sodium Diet (2gm) Diet Modifications: Nutrition Percent Meal Consumed 75% 09/08/22 18:47 Percent Meal Consumed 100% 09/08/22 13:37 Percent Meal Consumed 50% 09/08/22 09:07 Labs: RBC 3.58 X10^6/uL (4.0-5.2) L 09/08/22 04:50 Hgb 9.9 g/dL (12.0-16.0) L 09/08/22 04:50 Hct 30.2 % (36-46) L 09/08/22 04:50 Creatinine 1.26 mg/dL (0.52-1.04) H 09/08/22 04:50 NT-Pro-B Natriuret Pep 76605 pg/mL (<125) H 09/08/22 04:50 Electronically Signed by: Martha Silverman 09/09/22 08:54 Clinical Dietitian [address] [address]
[2022-09-09 09:12] LABS: Add Manual Diff / Slide Review YES; Hematocrit 31.9 % (36-46); Hemoglobin 10.3 g/dL (12.0-16.0); Mean Corpuscular HGB Conc 32.4 % (30-36); Mean Corpuscular Hemoglobin 27.4 PG (26-34); Mean Corpuscular Volume 84.5 fL (80-100); Platelet Count 275 X10^3/uL (150-400); Red Blood Cell Count 3.77 X10^6/uL (4.0-5.2); Red Cell Distribution Width 15.7 % (11.6-14.8); White Blood Cell Count 9.9 X10^3/uL (4.5-11.0)
[2022-09-09 09:20] LABS: PTT Partial Thromboplastin Tim 60 SECONDS (26-36)
[2022-09-09 09:22] LABS: Alanine Aminotransferase 16 IU/L (<35); Albumin 3.1 g/dL (3.5-5.0); Albumin Globulin Ratio 0.8 (1.0-2.8); Alkaline Phosphatase 131 U/L (38-126); Aspartate Aminotransferase 21 IU/L (14-36); BUN Creatinine Ratio 30.4 (6-22); Bilirubin Total 0.8 mg/dL (0.2-1.3); Blood Urea Nitrogen 35 mg/dL (7-17); Calcium 8.4 mg/dL (8.4-10.2); Carbon Dioxide 27 mmol/L (22-32); Chloride 106 mmol/L (98-107); Estimated Glomerular Filt Rate 51 mL/min (>60); Glucose 88 mg/dL (80-110); HEMOLYSIS < 15 (0-50); Sodium 141 mmol/L (137-145); Total Protein 7.1 g/dL (6.3-8.2)
[2022-09-09 09:24] LABS: Anisocytosis 1+; Neutrophils Absolute Manual 6732 /uL (3000-5900); Ovalocytes 1+; Target Cells 1+; Total Cells Counted 100
[2022-09-09] MEDS: INSULIN LISPRO 100 UNIT/ML 3ML VIAL SUBCUT ×2 (11:58→17:16)
--- NOTE | 2022-09-09 15:00 | PC.NURSE ---
Day shift: called development director services at 0750 in the attempt to speak with a [place] development director. The answering service through the patient financial counselor service stated the individual development director for [place] wasn't available and to try back in 30 minutes. This RN called again at 0900 and was told there were no [place] interpreters available today or tomorrow due to it being the weekend. Charge nurse notified. PROFESSOR OF OCEANOGRAPHY notified. Provider notified. No other patient financial counselor services in facility other than one utilized. Will request assistance from granddaughter who speaks [place] only as a last resort to ensure patient understands the plan of care. Patient is able to tell this RN why she is here at the hospital, what her medications are for, and is able to participate in assessment questioning appropriately in Nepali. Spoke with granddaughter Jeimy at 0915 who stated she would try her best to come in by 1100. Called again at 1505 and left a message with Jeimy to call back.
--- NOTE | 2022-09-09 17:26 | PM.PN.1 ---
Subjective Subjective Interval history: 72 yo female w/DM2-insulin dependent, HTN, CKD, chronic toe ulcers, CHF and prior NSTEMI admitted w/NSTEMI, NS VT x 20 beat run, and evidence of CHF.? Patient reports she is been having leg swelling for at least 2 months.? She denies any chest pain today, but notes she did have some last evening.? No shortness of breath.? We did attempt to use a medical physics professor today as patient speaks primarily [place], but the interpreting company did not have any interpreters available. Patient's grandson and his both speak [place], but her grandson is at work and unable to assist with interpreting. His is home with her children and has been on able to assist with interpreting. Exam Vital Signs (past 8 hours): - 09/09/22 12:03 09/09/22 10:00 09/09/22 12:00 Temperature Pulse Rate 71 71 Respiratory Rate 31 H 47 H Blood Pressure Pulse Oximetry Oxygen Delivery Method Room Air 09/09/22 12:09 09/09/22 12:09 09/09/22 14:00 Temperature 98 F Pulse Rate 70 72 Respiratory Rate 30 H 20 Blood Pressure 100/56 L Pulse Oximetry Oxygen Delivery Method 09/09/22 16:00 09/09/22 16:59 09/09/22 16:59 Temperature 98.2 F Pulse Rate 84 90 Respiratory Rate 15 17 Blood Pressure 88/65 L Pulse Oximetry 100 89 L Oxygen Delivery Method Oxygen Delivery Method Room Air Oxygen Flow Rate 0 Narrative Exam Narrative: GEN:? Elderly female, Alert and oriented x 3, NAD HEENT:NC, Face symmetric CHEST: Respiratory excursions symmetric, CTAB CV: RRR, no M/R/G ABD: Soft, NT/ND, BT present in all 4 quadrants, no organomegaly or masses EXTR: warm, well perfused, no C/C/E SKIN: warm and dry, no rash NEURO: Alert and oriented x 3, nonfocal Objective Labs 09/09/22 08:55 09/09/22 08:55 Labs: Laboratory Results - last 24 hr 09/07/22 09/08/22 09/08/22 19:34 13:49 20:18 WBC RBC Hgb Hct MCV MCH MCHC RDW Plt Count Neut % (Auto) Lymph % (Auto) [place] % (Auto) Eos % (Auto) Baso % (Auto) Lymph # (Auto) [place] # (Auto) Baso # (Auto) Total Counted Seg Neutrophils % Band Neutrophils % Lymphocytes % (Manual) Atypical Lymphs % Monocytes % (Manual) Eosinophils % (Manual) Basophils % (Manual) Neutrophils # (Manual) RBC Morphology Anisocytosis Target Cells Ovalocytes APTT Sodium Potassium Chloride Carbon Dioxide BUN Creatinine Estimated GFR BUN/Creatinine Ratio Glucose Hgb A1c (Ref Lab) 6.2 H Calcium Total Bilirubin AST ALT Alkaline Phosphatase Troponin I 0.120 H 0.115 H Total Protein Albumin Globulin Albumin/Globulin Ratio 09/08/22 09/09/22 09/09/22 20:18 08:55 08:55 WBC 9.9 RBC 3.77 L Hgb 10.3 L Hct 31.9 L MCV 84.5 MCH 27.4 MCHC 32.4 RDW 15.7 H Plt Count 275 Neut % (Auto) Not Reportable Lymph % (Auto) Not Reportable [place] % (Auto) Not Reportable Eos % (Auto) Not Reportable Baso % (Auto) Not Reportable Lymph # (Auto) Not Reportable [place] # (Auto) Not Reportable Baso # (Auto) Not Reportable Total Counted 100 Seg Neutrophils % 67.0 Band Neutrophils % 1.0 L Lymphocytes % (Manual) 26.0 Atypical Lymphs % 1.0 H Monocytes % (Manual) 2.0 Eosinophils % (Manual) 1.0 L Basophils % (Manual) 2.0 H Neutrophils # (Manual) 6732 H RBC Morphology Not Reportable Anisocytosis 1+ H Target Cells 1+ H Ovalocytes 1+ H APTT 62 H 60 H Sodium Potassium Chloride Carbon Dioxide BUN Creatinine Estimated GFR BUN/Creatinine Ratio Glucose Hgb A1c (Ref Lab) Calcium Total Bilirubin AST ALT Alkaline Phosphatase Troponin I Total Protein Albumin Globulin Albumin/Globulin Ratio 09/09/22 08:55 WBC RBC Hgb Hct MCV MCH MCHC RDW Plt Count Neut % (Auto) Lymph % (Auto) [place] % (Auto) Eos % (Auto) Baso % (Auto) Lymph # (Auto) [place] # (Auto) Baso # (Auto) Total Counted Seg Neutrophils % Band Neutrophils % Lymphocytes % (Manual) Atypical Lymphs % Monocytes % (Manual) Eosinophils % (Manual) Basophils % (Manual) Neutrophils # (Manual) RBC Morphology Anisocytosis Target Cells Ovalocytes APTT Sodium 141 Potassium 4.0 Chloride 106 Carbon Dioxide 27 BUN 35 H Creatinine 1.15 H Estimated GFR 51 L BUN/Creatinine Ratio 30.4 H Glucose 88 Hgb A1c (Ref Lab) Calcium 8.4 Total Bilirubin 0.8 AST 21 ALT 16 Alkaline Phosphatase 131 H Troponin I Total Protein 7.1 Albumin 3.1 L Globulin 4.0 Albumin/Globulin Ratio 0.8 L [facility] Medical History Chronic renal insufficiency Coronary artery disease Diabetes Hypertension Family History (Updated 09/08/22 @ 04:24 by ADRIAN Hamilton) Father No problems noted. Mother No problems noted. Social History household members: family Smoking Status: Never smoker Assessment & Plan Assessment & Plan narrative: 1. NSTEMI Patient presented with an initial troponin of 0.314.? Has continued to trend down and was 0.115 last evening. Presented with chest pain in conjunction with evidence of congestive heart failure as well as ventricular irritability with a run of V-tach.? She was initiated on heparin drip, metoprolol, and furosemide.? These have been continued.? BNP was 96400.? Echo was performed yesterday and revealed an EF of 20-25%, severe global hypokinesis of left ventricle, severe mitral regurgitation, mild aortic stenosis, trace aortic regurgitation, moderate tricuspid regurgitation, and RV systolic pressure estimated to be at least 60 mmHg.? Continue diuresis.? Continue heparin as noted.? I did discuss her case with Dr. Yanez, on-call for Cardiology. He believes that she is a primary cardiomyopathy with resultant mitral valve regurgitation. Patient did have some chest pain last evening despite being on heparin. Await potential transfer to outside hospital for cardiac care. 2. CKD stage 3 Creatinine stable at 1.15.? Baseline GFR is in the 30-40 range 3. Type 2 diabetes, insulin dependent Continue Lantus.? Blood sugars remain well controlled 4. Hypertension Blood pressures were normotensive this morning, but have been a bit soft this afternoon. Holding parameters were placed yesterday on the metoprolol and amlodipine. 5. Normocytic anemia Hemoglobin is stable at 10.3 Code status Full Prophylaxis On heparin drip Disposition ICU; await transfer to outside hospital for ongoing cardiac care ?
--- NOTE | 2022-09-09 20:17 | PM.ICURNDS ---
- Date Patient Seen: 09/09/22 Time Patient Seen: 20:17 :: This patient was seen via real time interactive two-way audiovisual telecommunication. Note: No acute issues. On heparin gtt per NSTEMI protocol. Cont diuresis to seek net negative fluid balance. D/w RN.
[2022-09-09] MEDS: ATORVASTATIN 20 MG TABLET 40 MG PO (21:19)
[2022-09-09] MEDS: SENNOSIDES 8.6 MG TABLET 17.2 MG PO (21:22)
[2022-09-10 04:18] VITALS: BP 108/64; PULSE 86; RESP 22; TEMP 36.3; O2SAT 97
[2022-09-10 04:44] LABS: Add Manual Diff / Slide Review NO; Basophils Absolute Auto 100 /uL (0-100); Basophils Percent Auto 1.5 % (0-2); Eosinophils Absolute Auto 200 /uL (0-450); Hemoglobin 9.5 g/dL (12.0-16.0); Lymphocytes Absolute Auto 2000 /uL (1100-4500); Lymphocytes Percent Auto 26.7 % (25-40); Mean Corpuscular HGB Conc 32.7 % (30-36); Mean Corpuscular Hemoglobin 27.2 PG (26-34); Mean Corpuscular Volume 83.4 fL (80-100); Monocytes Absolute Auto 700 /uL (0-900); Neutrophils Absolute Auto 4600 /uL (1500-7000); Neutrophils Percent Auto 59.8 % (50-75); Platelet Count 282 X10^3/uL (150-400); Red Blood Cell Count 3.48 X10^6/uL (4.0-5.2); Red Cell Distribution Width 15.6 % (11.6-14.8); White Blood Cell Count 7.7 X10^3/uL (4.5-11.0)
[2022-09-10 04:52] LABS: PTT Partial Thromboplastin Tim 68 SECONDS (26-36)
[2022-09-10 04:59] LABS: Alanine Aminotransferase 14 IU/L (<35); Albumin Globulin Ratio 0.8 (1.0-2.8); Alkaline Phosphatase 114 U/L (38-126); Aspartate Aminotransferase 19 IU/L (14-36); BUN Creatinine Ratio 30.7 (6-22); Bilirubin Total 0.5 mg/dL (0.2-1.3); Blood Urea Nitrogen 39 mg/dL (7-17); Calcium 8.2 mg/dL (8.4-10.2); Carbon Dioxide 26 mmol/L (22-32); Chloride 109 mmol/L (98-107); Estimated Glomerular Filt Rate 45 mL/min (>60); Globulin 3.9 g/dL (1.7-4.1); Glucose 71 mg/dL (80-110); HEMOLYSIS < 15 (0-50); Potassium 4.1 mmol/L (3.4-5.1); Sodium 141 mmol/L (137-145); Total Protein 6.9 g/dL (6.3-8.2)
[2022-09-10] MEDS: ASPIRIN EC 325 MG TABLET PO (08:26)
[2022-09-10] MEDS: AMLODIPINE 5 MG TABLET 10 MG PO (08:26)
[2022-09-10] MEDS: METOPROLOL IR 25 MG TABLET 12.5 MG PO (08:27)
[2022-09-10] MEDS: FUROSEMIDE 20 MG TABLET PO (08:27)
[2022-09-10] MEDS: INSULIN GLARGINE 100 UNIT/ML 3ML PEN 30 UNIT SUBCUT (08:28)
[2022-09-10] MEDS: SODIUM CHLORIDE 0.9% FLUSH 10 ML IV (08:29)
--- NOTE | 2022-09-10 15:38 | PC.NURSE ---
Discharge note: late entry. Pt IV discontinued, telemetry removed, belongings given to pt. Education provided to pt and grandson on stroke s/s, worsening symptoms, medication management, follow up with cardiology. Patient wheeled via wheelchair by PCT to private vehicle with grandson at approximately 0945
--- NOTE | 2022-09-12 20:24 | P.DS_ITS ---
History of Present Illness History of Present Illness Chief complaint: Leg pain Narrative: Per H&P: Julia Osorio is a 72 F with a hx of with PMH DM on insulin, HTN, CKD, chronic toe ulcers, CHF and possible hx of at least one NSTEMI in the past presented to ED complaining of increased lower extremity edema and pain for the last 4 days. When pressed, she endorses left-sided chest pressure intermittently over the last 2 days.? Had increasing difficulty sleeping, needing to sleep upright.? Per ED Dr. Jaramillo When asked about prior cardiac history she is somewhat ambiguous.? It sounds like she may have had some sort of event in [place] and some type of evaluation in [place].? It sounds like she has never had a heart catheterization as she has always declined them secondary to fear.? While in the ED patient had a 20 beat run of V-tach asymptomatic, she is found to have +3 lower extremity edema positive JVD, with no foot skin or toe wounds.? Patient's initial troponin 0.314, repeat 0.275.? Dr. Miguel consulted Dr. Medrano cardiology at [facility] recommended the patient be placed on a heparin drip and add metoprolol, the patient to have an echo and nuclear stress tomorrow, recommends the patient be transferred to [facility] for heart catheterization.? Dr. Miguel did fax over face sheet to [facility] patient is 3rd in the Q for transfer for cardiac catheterization. Admit exam was performed in the ED, patient was sleeping resting quietly without any discomfort she denies current chest pressure complains of continuing bilateral leg pain, and mild shortness of breath.? Temp 98.4?, BP 122/63, HR 98, RR 20, O2 saturation 97% on room air.? H&H 10.7/33, BUN 28, bicarb 21, creatinine 133, GFR 43, glucose 188-renal labs are baseline for patient's CKD.? PT 16.4, INR 1.4, alk-phos 149, BNP 55793.? I personally reviewed chest x-ray and EKG chest x-ray demonstrated cardiomegaly with pulmonary edema, EKG normal sinus rhythm rate 100 with possible anterolateral infarct age unknown unchanged from previous EKG.? Patient admitted for NSTEMI to the ICU with tele blunger machine operator. ?On admit patient denies chest pain, shortness in breath, headache, changes in vision, difficulty swallowing, speech impairment, weakness, numbness, tingling, difficulty with ambulation, recent falls, head injury, LOC, fever, body aches, chills, cough, recent exposure to illness, abdominal pain, nausea, vomiting, urinary incontinence/retention, dysuria, frequency, urgency, hematuria, bowel changes, constipation, incontinence, melena, rashes, recent changes to medication, illness, injury, or trauma Discharge Providers Provider Date of admission: 09/07/22 22:28 Discharge Date: 09/10/22 Primary care physician: Anne Mary PA-C Consults: 09/07/22 21:49 Consult to Dietitian, Adult Urgent Comment: Reason For Exam: bmi 29.1 Nstemi 09/07/22 22:03 Consult to Tele-blunger machine operator Routine Comment: Consulting Provider: [employer]dir[employer] Reason for consultation: [employer] Has provider been notified: No Discharge provider: Kaylene Rosas MD Summary Hospital Course Discharge Diagnosis: 1. NSTEMI 2. Cardiomyopathy, likely ischemic 3. Nonsustained VT 4. CKD stage 3 5. Type 2 diabetes, insulin dependent 6. Hypertension 7. Normocytic anemia Hospital Course: Pt was admitted w/NSTEMI and cardiomyopathy. She was initially admitted to the ICU and was placed on a heparin drip. There were plans in place for transfer to a higher level of care but after discussing further w/pt and family, it was not consistent w/the patient's goals of care. She completed the heparin infusion (48hrs) and remained fairly stable. She requested d/c on 09/09 but had some challenges w/hypotension. Meds were adjusted and her BP normalized. She is discharged in stable condition w/recommendations for outpatient cardiology f/u. Status at Discharge Cognitive/behavioral status at discharge: at baseline, oriented Overall status at discharge: patient is back to baseline Time Spent with Patient Time spent: Less than 30 minutes Exam Vital Signs (past 8 hours): Oxygen Delivery Method Room Air Oxygen Flow Rate 0 Narrative Exam Narrative: GEN:? Elderly female, Alert and oriented x 3, NAD HEENT:NC, Face symmetric CHEST: Respiratory excursions symmetric, CTAB CV: RRR, no M/R/G ABD: Soft, NT/ND, BT present in all 4 quadrants, no organomegaly or masses EXTR: warm, well perfused, no C/C/E SKIN: warm and dry, no rash NEURO: Alert and oriented x 3, nonfocal Objective Labs 09/10/22 04:13 09/10/22 04:13 [facility] Medical History Chronic renal insufficiency Coronary artery disease Diabetes Hypertension Family History (Updated 09/08/22 @ 04:24 by ADRIAN Hamilton) Father No problems noted. Mother No problems noted. Social History household members: family Smoking Status: Never smoker Discharge Plan Discharge Plan Patient Disposition: Home Provider Discharge Comment: You were admitted with a heart attack. You also have a weak heart. We are giving you new medicines to help your heart work better. Please return to the ED for recurring chest pain, shortness of breath, increasing leg swelling, inability to hold down food/fluids. Weigh yourself each morning after urinating. Call MD for weight gain of more than 3# in 24 hours or more than 5# in one week. Please call [facility] tomorrow morning and make an appointment. Discharge orders & Medications Prescriptions: New aspirin 81 mg capsule 81 mg PO DAILY Qty: 30 0RF atorvastatin [Lipitor] 20 mg Tablet 40 mg PO BEDTIME Qty: 30 0RF nitroglycerin [Nitrostat] 0.4 mg Tablet, Sublingual 0.4 mg sublingual [id number] PRN (Reason: Chest Pain) Qty: 30 0RF metoprolol tartrate 25 mg Tablet 12.5 mg PO BID Qty: 30 0RF Continued insulin glargine [Lantus Solostar U-100 Insulin] 100 unit/mL (3 mL) insulin pen 30 unit SUBCUT DAILY amlodipine 10 mg tablet 10 mg PO DAILY Qty: 90 4RF furosemide [Lasix] 20 mg tablet 20 mg PO BID Qty: 10 0RF Discontinued metformin 1,000 mg tablet 1,000 mg PO DAILY Patient Comments: TAKE 1 TABLET BY MOUTH TWICE DAILY Follow up/Referrals: Anne Mary PA-C [Primary Care Provider] - Diet/Activity/Treatments Diet: Diet as Tolerated Diet comment: Heart healthy Activity: as tolerated Oxygen: N/A Visit Report/Discharge Packet Instructions: DI for Heart Attack, Cholesterol Guidelines for People with High Risk of Heart Attack, Cardiomyopathy, DI for Heart Failure Stand Alone Forms: Congestive Heart Failure, Patient Portal/API, Stroke Signs & Symptoms Discharge Data Primary Care Provider: Anne Mary Discharges patient from system. Discharge Date/Time: 09/10/22 09:45
== END 2022-09-10 09:45 | disposition home or self-care (01) | DRG 280 ==
LOC: ED 20:42 → AC 22:28 → ICU 23:36
PROVIDERS: Internal Medicine Pulmonary Disease; Admitting Provider Nurse Practitioner Family; Emergency Provider Emergency Medicine; Family Provider Physician Assistant Medical; PCP Physician Assistant Medical; Referring Provider Emergency Medicine; Visit Provider Nurse Practitioner Family
DX: I21.4 Non-ST elevation (NSTEMI) myocardial infarction (principal); I50.21 Acute systolic (congestive) heart failure; J81.1 Chronic pulmonary edema; N17.9 Acute kidney failure, unspecified; I13.0 Hypertensive heart and chronic kidney disease with heart failure and stage 1 through stage 4 chronic kidney disease, or unspecified chronic kidney disease; I24.8 Other forms of acute ischemic heart disease; E11.22 Type 2 diabetes mellitus with diabetic chronic kidney disease; E66.3 Overweight; N18.30 Chronic kidney disease, stage 3 unspecified; D64.9 Anemia, unspecified; Z68.29 Body mass index [BMI] 29.0-29.9, adult; Z79.4 Long term (current) use of insulin; Z20.822 Contact with and (suspected) exposure to COVID-19
CPT/HCPCS: 36415; 71045; 78452; 80053; 80061; 81001; 82550; 82962; 83036; 83690; 83735; 83880; 84443; 84484; 85007; 85025; 85610; 85730; 87077; 87086; 87186; 87635; 87797; 93005; 93017; 93306; 96365; 96366; 96375; 96376; 99232; 99284; 99291; C9803; A9502; J1644; J1815; J1940; Q9957